=== PATIENT | male | born 1930 | race Caucasian/White ===

== ENCOUNTER → 2016-10-26 | Day surgery (SDC) | payer OTHER ==
[2016-10-13 14:10] VITALS: Ht 181.6 cm; Wt 58.8 kg
[~2016-10-26] VITALS: Ht 181.6 cm; Wt 58.8 kg
[~2016-10-26] MED LIST: 500ML BSS 0.3ML EPI 1:1000PF IRRIG ONE; ACETAMINOPHEN 325 MG TAB PO PRN; AMVISC PLUS 0.8ML SYRINGE INT OCU ONE; ASPEC81 PO; ASPI81TA28 PO; ATROPINE SULFATE 0.1 MG/ML 5ML SYR IV PRN; AcetaZOLAMIDE 250 MG TAB PO SCH; BETAXOLOL HCL 0.25% OP SUSP PER DROP CHARGE OPR SCH; BRIMONIDINE TART 0.2% OP SOLN PER DROP CHARGE ONE; BSS FLUSH ONE; CARB25TA12 PO; CHOL2000 PO; CHOL20005 PO; CLOP1TAB5 PO; CMD2 PO; CYAN3INJ SQ; CYNI1000 SQ; DMX250; ENDOCOAT 0.85ML SYRINGE INT OCU ONE; EpINEphrine INJ 1MG/ML AMP 1 MG/ML AMP ONE; LACTATED RINGER'S 1000ML 500 ML IV SCH; LIDOCAINE 4% OP SOLN DROP CHARGE ONE; LIDOCAINE 4% OP SOLN DROP CHARGE OPR SCH; LIDOCAINE HCL 1% MPF 2 ML VIAL ONE; METO25TA3 PO; MIDAZOLAM HCL 1 MG/ML 2ML VIAL ONE; MIX: 4ML BSS 1ML EPI 1:1000 PF INSTIL ONE; MOXIFLOXACIN OPH SOLN PER DROP CHARGE ONE; OCUCOAT 1 ML SOLN IO ONE; OFLO0.3S OP; ONDA4TAB10 SL; PANT40TA PO; PARO20TA3 PO; PLV75 PO; POVIDONE-IODINE OP SOLN 30 ML BTL ONE; PRED1SUS3 OPL; PRED1SUS3 OPR; PROPARACAINE 0.5% OP SOLN PER DROP CHARGE OPR SCH; TOBRAMYCIN/DEXAMETHASONE OPH OINT PER APPLN CHARGE ONE; TPRSR/25 PO; WARF1TAB6 PO; WARF2TAB8 PO
[2016-10-26] MEDS: PHENYLEPHRINE HCL 2.5% OP SOLN PER DROP CHARGE OPR SCH ×2 (08:22→08:27)
[2016-10-26] MEDS: TROPICAMIDE 1% OP SOLN PER DROP CHARGE OPR SCH ×2 (08:23→08:28)
[2016-10-26] MEDS: CYCLOPENTOLATE HCL 1% OP SOLN PER DROP CHARGE OPR SCH ×2 (08:24→08:29)
[2016-10-26] MEDS: MOXIFLOXACIN OPH SOLN PER DROP CHARGE OPR SCH ×2 (08:25→08:35)
--- NOTE | 2016-10-26 08:50 | History & Physical Bridge - [place] ---
H&P Re-Evaluation Bridge Note: I have examined the patient, reviewed the History & Physical and in the interval since the performance of the History & Physical I have noted the following changes of clinical significance: No changes noted
--- NOTE | 2016-10-26 09:23 | Discharge Instructions-SurgCtr ---
Discharge Instructions Visit Reason for Visit: Cataract Right Eye Discharge Discharge Diagnosis / Problem: lens implant right eye Discharge Goals Goal(s): Improve function Activity Recommendations Activity Limitations: resume your previous activity Lifting Limitations: no more than 10 pounds Exercise/Sports Limitations: gradually increase as tolerated May Resume Sexual Activity: when tolerated Shower/Bathe: tomorrow Driving or Machine Use: resume 1 day after discharge Anesthesia . Post Anesthesia Instructions: If you have had General Anesthesia or IV Sedation: * Do not drive today. * Resume driving when surgeon permits. * Do not make important decisions or sign legal documents today. * Call surgeon for: 1. Temperature elevations greater than 101 degrees F. 2. Uncontrollable pain. 3. Excessive bleeding. 4. Persistent nausea and vomiting. 5. Medication intolerance (nausea, vomiting or rash). * For nausea and vomiting use only clear liquids such as: tea, soda, bouillon until nausea subsides, then gradually increase diet as tolerated. * If you have any concerns or questions, call your surgeon's office. If physician is unavailable and it is an emergency, call 911 or go to the nearest emergency room. . Instructions / Follow-Up Instructions / Follow-Up ACTIVITY RECOMMENDATIONS: * Light activities. * Mild irritation and blurred vision are common for the first few days. * You may walk outside, read, watch television. * Redness around the white part of the eye is common. MEDICATIONS: Resume previous medications unless instructed otherwise by your surgeon. * Take white Diamox (Acetazolamide) tablet at 1 pm today. Start all eye drops at 1 pm today: * Eye drops (today and tomorrow): Prednisone - one drop in operative eye every 3 hours while awake Ofloxacin - one drop in operative eye every 3 hours while awake SPECIAL CARE INSTRUCTIONS: * Tape plastic shield over eye to sleep at night. Call your doctor at with any concerns or problems. FOLLOW UP VISIT: Follow-up with Dr Elaine at [place] office as scheduled. Diet Recommendations Home Diet: no limitations Procedures Procedures Performed: cataract extraction with lens implant Pending Studies Studies pending at discharge: no Medical Emergencies . Who to Call and When: Medical Emergencies: If at any time you feel your situation is an emergency, please call 911 immediately. . Non-Emergent Contact Non-Emergency issues call your: Rn Patient Services Call Non-Emergent contact if: your pain is not controlled [phone] . . "Provider Documentation" section prepared by Jayce Elaine.
--- NOTE | 2016-10-26 09:24 | [facility] Operative Report ---
Operative Report 1. PREOPERATIVE DIAGNOSIS: Senile nuclear cataract, right eye. 2. POSTOPERATIVE DIAGNOSIS: Senile nuclear cataract, right eye. 3. PROCEDURE: Phacoemulsification of right cataract with posterior chamber lens implant, type Bausch [employer] Lomb, model MX60, power +22 diopters. ANESTHESIA: Local standby. SURGEON: Dr. Elaine. COMPLICATIONS: None. OPERATING TIME: 10 minutes. 4. OPERATION AND FINDINGS: DESCRIPTION OF PROCEDURE: The right pupil was dilated. The anesthetic was administered using a topical technique. The right eye was prepped and draped. A speculum was placed. A clear corneal incision was formed. The chamber was filled with Amvisc Plus and Endocoat. Epinephrine solution was used. A paracentesis was placed. A capsulorrhexis was performed. The nucleus was hydrodissected. The lens was removed with phacoemulsification. Time was 4.86 seconds. The aspiration unit was used to remove the cortex. The capsule was filled with Amvisc Plus. The lens implant was folded and placed into the capsule. The incision was hydrated. The Amvisc was aspirated. The wound was secure. The chamber was deep. The pupil was round. TobraDex ointment and Vigamox solution were placed. The speculum was removed. The patient was returned to the Recovery Room in stable condition. I attest to the content of the Intraoperative Record and any orders documented therein. Any exceptions are noted below. The scribe's documentation has been prepared in my presence, under my direction and personally reviewed by me in its entirety. I confirm that the note above accurately reflects all work, treatment, procedures, and medical decision making performed by me. I personally scribed for Jayce Elaine M.D. (SETH) on 10/26/16 at 09:24. Electronically submitted by Mirela Billy ([email or web address]).
--- NOTE | 2016-10-26 09:29 | Anesthesia Progress Nt - [facility] ---
Anesthesia Post Op Note Date & Time Oct 26, 2016 at 09:29 Vital Signs Pain Intensity: 0 Vital Signs Past 12 Hours Date Time Temp Pulse Resp B/P Pulse Ox O2 Delivery O2 Flow Rate FiO2 10/26/16 08:12 36.2 72 16 101/76 98 Room Air Notes Mental Status: alert / awake / arousable, participated in evaluation Pt Amnestic to Procedure: Yes Nausea / Vomiting: adequately controlled Pain: adequately controlled Airway Patency, RR, SpO2: stable & adequate BP & HR: stable & adequate Hydration State: stable & adequate Anesthetic Complications: no major complications apparent
[2016-10-26 09:31] VITALS: TEMP 36.3
[2016-10-26 09:52] VITALS: BP 126/78; PULSE 56; O2SAT 98
== END | disposition home or self-care (01) ==
LOC: X.SURG 08:01
PROVIDERS: ATTEND Specialist
DX: H25.11 Age-related nuclear cataract, right eye (principal)

== ENCOUNTER → 2016-11-16 | Day surgery (SDC) | payer OTHER ==
[2016-11-07 08:30] VITALS: Ht 181.6 cm; Wt 58.6 kg
[~2016-11-16] VITALS: Ht 181.6 cm; Wt 58.6 kg
[~2016-11-16] MED LIST changes: +BETAXOLOL HCL 0.25% OP SUSP PER DROP CHARGE OPL SCH; -BETAXOLOL HCL 0.25% OP SUSP PER DROP CHARGE OPR SCH; +EpHEDrine SULFATE INJ 50 MG/ML AMP IV PRN; +LIDOCAINE 4% OP SOLN DROP CHARGE OPL SCH; -LIDOCAINE 4% OP SOLN DROP CHARGE OPR SCH; +PROPARACAINE 0.5% OP SOLN PER DROP CHARGE OPL SCH; -PROPARACAINE 0.5% OP SOLN PER DROP CHARGE OPR SCH; +PROPOFOL IV EMULSION 10 MG/ML 20 ML VIAL IV ONE
[2016-11-16] MEDS: PHENYLEPHRINE HCL 2.5% OP SOLN PER DROP CHARGE OPL SCH ×2 (10:20→10:25)
[2016-11-16] MEDS: TROPICAMIDE 1% OP SOLN PER DROP CHARGE OPL SCH ×2 (10:21→10:26)
[2016-11-16] MEDS: CYCLOPENTOLATE HCL 1% OP SOLN PER DROP CHARGE OPL SCH ×2 (10:22→10:27)
[2016-11-16] MEDS: MOXIFLOXACIN OPH SOLN PER DROP CHARGE OPL SCH ×2 (10:23→10:33)
--- NOTE | 2016-11-16 11:11 | Anesthesia Progress Nt - [facility] ---
Anesthesia Post Op Note Date & Time Nov 16, 2016 at 11:11 Vital Signs Pain Intensity: 3 Vital Signs Past 12 Hours Date Time Temp Pulse Resp B/P Pulse Ox O2 Delivery O2 Flow Rate FiO2 11/16/16 10:08 36.5 54 20 106/64 99 Room Air Notes Mental Status: alert / awake / arousable, participated in evaluation Pt Amnestic to Procedure: Yes Nausea / Vomiting: adequately controlled Pain: adequately controlled Airway Patency, RR, SpO2: stable & adequate BP & HR: stable & adequate Hydration State: stable & adequate Anesthetic Complications: no major complications apparent
--- NOTE | 2016-11-16 11:13 | Discharge Instructions-SurgCtr ---
Discharge Instructions Visit Reason for Visit: Cataract Left Eye Discharge Discharge Diagnosis / Problem: lens implant left eye Discharge Goals Goal(s): Improve function Activity Recommendations Activity Limitations: resume your previous activity Lifting Limitations: no more than 10 pounds Exercise/Sports Limitations: gradually increase as tolerated May Resume Sexual Activity: when tolerated Shower/Bathe: tomorrow Driving or Machine Use: resume 1 day after discharge Anesthesia . Post Anesthesia Instructions: If you have had General Anesthesia or IV Sedation: * Do not drive today. * Resume driving when surgeon permits. * Do not make important decisions or sign legal documents today. * Call surgeon for: 1. Temperature elevations greater than 101 degrees F. 2. Uncontrollable pain. 3. Excessive bleeding. 4. Persistent nausea and vomiting. 5. Medication intolerance (nausea, vomiting or rash). * For nausea and vomiting use only clear liquids such as: tea, soda, bouillon until nausea subsides, then gradually increase diet as tolerated. * If you have any concerns or questions, call your surgeon's office. If physician is unavailable and it is an emergency, call 911 or go to the nearest emergency room. . Instructions / Follow-Up Instructions / Follow-Up ACTIVITY RECOMMENDATIONS: * Light activities. * Mild irritation and blurred vision are common for the first few days. * You may walk outside, read, watch television. * Redness around the white part of the eye is common. MEDICATIONS: Resume previous medications unless instructed otherwise by your surgeon. * Take white Diamox (Acetazolamide) tablet at 2 pm today. Start all eye drops at 2 pm today: * Eye drops (today and tomorrow): Prednisone - one drop in operative eye every 3 hours while awake Ofloxacin - one drop in operative eye every 3 hours while awake SPECIAL CARE INSTRUCTIONS: * Tape plastic shield over eye to sleep at night. Call your doctor at with any concerns or problems. FOLLOW UP VISIT: Follow-up with Dr Elaine at [place] office as scheduled. Diet Recommendations Home Diet: no limitations Procedures Procedures Performed: cataract extraction with lens implant Pending Studies Studies pending at discharge: no Medical Emergencies . Who to Call and When: Medical Emergencies: If at any time you feel your situation is an emergency, please call 911 immediately. . Non-Emergent Contact Non-Emergency issues call your: [employer] Worker Call Non-Emergent contact if: your pain is not controlled [phone] . . "Provider Documentation" section prepared by Jayce Elaine.
--- NOTE | 2016-11-16 11:15 | [facility] Operative Report ---
Operative Report Date of Service Nov 16, 2016. Operative Report 1. PREOPERATIVE DIAGNOSIS: Senile nuclear cataract, left eye. 2. POSTOPERATIVE DIAGNOSIS: Senile nuclear cataract, left eye. 3. PROCEDURE: Phacoemulsification of left cataract with posterior chamber lens implant, type Bausch [employer] Lomb, model MX60, power +22.5 diopters. ANESTHESIA: Local standby. SURGEON: Dr. Elaine. COMPLICATIONS: None. OPERATING TIME: 10 minutes. 4. OPERATION AND FINDINGS: DESCRIPTION OF PROCEDURE: The left pupil was dilated. The anesthetic was administered using a topical technique. The left eye was prepped and draped. A speculum was placed. A clear corneal incision was formed. The chamber was filled with Amvisc Plus and Endocoat. Epinephrine solution was used. A paracentesis was placed. A capsulorrhexis was performed. The nucleus was hydrodissected. The lens was removed with phacoemulsification. Time was 6.79 seconds. The aspiration unit was used to remove the cortex. The capsule was filled with Amvisc Plus. The lens implant was folded and placed into the capsule. The incision was hydrated. The Amvisc was aspirated. The wound was secure. The chamber was deep. The pupil was round. TobraDex ointment and Vigamox solution were placed. The speculum was removed. The patient was returned to the Recovery Room in stable condition. I attest to the content of the Intraoperative Record and any orders documented therein. Any exceptions are noted below. The scribe's documentation has been prepared in my presence, under my direction and personally reviewed by me in its entirety. I confirm that the note above accurately reflects all work, treatment, procedures, and medical decision making performed by me. I personally scribed for Jayce Elaine M.D. (SETH) on 11/16/16 at 11:15. Electronically submitted by Mirela Billy ([email or web address]).
[2016-11-16 11:17] VITALS: TEMP 36.7
[2016-11-16 11:40] VITALS: BP 139/68; PULSE 61; O2SAT 98
== END | disposition home or self-care (01) ==
LOC: X.SURG 09:50
PROVIDERS: ATTEND Specialist
DX: H25.12 Age-related nuclear cataract, left eye (principal); Z96.1 Presence of intraocular lens

== ENCOUNTER 2017-01-02 12:38 | Inpatient (IN) | payer OTHER ==
[~2017-01-02] VITALS: Ht 180.3 cm; Wt 57.0 kg
[~2017-01-02 12:38] MED LIST changes: -500ML BSS 0.3ML EPI 1:1000PF IRRIG ONE; -ACETAMINOPHEN 325 MG TAB PO PRN; -AMVISC PLUS 0.8ML SYRINGE INT OCU ONE; -ASPEC81 PO; -ASPI81TA28 PO; -ATROPINE SULFATE 0.1 MG/ML 5ML SYR IV PRN; -AcetaZOLAMIDE 250 MG TAB PO SCH; -BETAXOLOL HCL 0.25% OP SUSP PER DROP CHARGE OPL SCH; -BRIMONIDINE TART 0.2% OP SOLN PER DROP CHARGE ONE; -BSS FLUSH ONE; -CHOL20005 PO; -CLOP1TAB5 PO; -CYNI1000 SQ; -ENDOCOAT 0.85ML SYRINGE INT OCU ONE; -EpHEDrine SULFATE INJ 50 MG/ML AMP IV PRN; -EpINEphrine INJ 1MG/ML AMP 1 MG/ML AMP ONE; -LACTATED RINGER'S 1000ML 500 ML IV SCH; -LIDOCAINE 4% OP SOLN DROP CHARGE ONE; -LIDOCAINE 4% OP SOLN DROP CHARGE OPL SCH; -LIDOCAINE HCL 1% MPF 2 ML VIAL ONE; -MIDAZOLAM HCL 1 MG/ML 2ML VIAL ONE; -MIX: 4ML BSS 1ML EPI 1:1000 PF INSTIL ONE; -MOXIFLOXACIN OPH SOLN PER DROP CHARGE ONE; -OCUCOAT 1 ML SOLN IO ONE; -ONDA4TAB10 SL; -PANT40TA PO; -PARO20TA3 PO; -PLV75 PO; -POVIDONE-IODINE OP SOLN 30 ML BTL ONE; -PRED1SUS3 OPR; -PROPARACAINE 0.5% OP SOLN PER DROP CHARGE OPL SCH; -PROPOFOL IV EMULSION 10 MG/ML 20 ML VIAL IV ONE; -TOBRAMYCIN/DEXAMETHASONE OPH OINT PER APPLN CHARGE ONE; -TPRSR/25 PO; -WARF1TAB6 PO; -WARF2TAB8 PO
[2017-01-02] MEDS ORDERED: NITROGLYCERIN OINT 2% 1GM PACKET EXT STA (12:48)
[2017-01-02] MEDS ORDERED: SODIUM CHLORIDE 0.9% 1000ML 250 ML IV STA (12:48)
[2017-01-02] MEDS ORDERED: NiCARDipine HCL INJ 2.5 MG/ML 10 ML AMP ONE (12:51)
[2017-01-02] MEDS ORDERED: FENTANYL CITRATE INJ 50 MCG/1 ML 2 ML VIAL ONE (12:52)
[2017-01-02] MEDS ORDERED: HEPARIN SOD (PORCINE) 1000 UNIT/ML 10 ML VIAL ONE (12:52)
[2017-01-02] MEDS ORDERED: MIDAZOLAM HCL 1 MG/ML 2ML VIAL ONE (12:53)
[2017-01-02] MEDS ORDERED: NITROGLYCERIN/D5W 100MCG/ML 20ML SYR ONE (12:54)
[2017-01-02] MEDS ORDERED: NITROGLYCERIN OINT 2% 1GM PACKET ONE (12:55)
[2017-01-02 13:00] LABS: HEMATOCRIT 34.5 % (42-52); MEAN CELL VOLUME 90.3 fL (80-100); MEAN CORPUSCULAR HEMOGLOBIN 30.4 pg (25-34); MEAN CORPUSCULAR HGB CONC 33.6 g/dl (32-36); MEAN PLATELET VOLUME 9.4 fL (7.4-10.4); PLATELET COUNT 207 K/uL (130-400); RED BLOOD COUNT 3.82 M/uL (4.7-6.1); WHITE BLOOD COUNT 12.17 K/uL (4.8-10.8)
[2017-01-02 13:04] LABS: ISTAT CREATININE 2.6 mg/dl (0.6-1.3); ISTAT HEMOGLOBIN 11.6 g/dl (14.0-18.0); ISTAT IONIZED CALCIUM 1.12 mmol/l (1.12-1.32)
--- NOTE | 2017-01-02 13:06 | EMERGENCY ROOM VISIT NOTE ---
History Report prepared by Dominic: Shayna Ty Under the Supervision of: Dr. Beltran Botello M.D. First contact with patient: 12:33 Stated Complaint: CARDIAC History of Present Illness The patient is a 86 year old male who presents to the Emergency Room with complaints of an episode of resolved chest pain that occurred about an hour ago. Per EMS, the patient was on his way to the cafeteria to eat at his half-way and developed epigastric pain. He did not look well to staff and had a syncopal episode. Paramedics were called at that time. Upon their arrival, he complained of 10/10 chest pain. He then complained of abdominal pain. En route, he was nauseated with dry heaves but had no productive emesis. He was given 4 mg Zofran and 4 baby aspirin. EKGs en route were suggestive of an inferior myocardial infarction. Upon arrival to the ED, the patient was pain free. Denies shortness of breath or other complaints. He has never had a heart attack. He does not have a history of lung disease or diabetes. He is not on any medication for high blood pressure. The patient is on Coumadin due to a history of a-fib. His [id number] states that he recently had his INR checked. Source of History: patient, family, EMS Onset: 1 hour ago Position: chest Symptom Intensity: 10/10 Timing: resolved Associated Symptoms: + abdominal pain, + nausea, No SOB, No vomiting Review of Systems See HPI for pertinent positives & negatives. A total of 10 systems reviewed and were otherwise negative. Past Medical & Surgical Medical Problems: (1) Crohns disease (2) Heart disease (3) Hypertension (4) Kidney stones (5) Left ureteral calculus (6) Myocardial infarction acute (7) Prostate cancer Family History Cancer Heart disease Hypertension Kidney stones Social History Smoking Status: Former Smoker Alcohol Use: none Marital Status: Housing Status: lives alone Occupation Status: retired Current/Historical Medications Scheduled Carbidopa/Levodopa (Sinemet 25MG/100MG), 1 TAB PO QID Cholecalciferol (Vitamin D3), 1 TAB PO DAILY Cyanocobalamin (Cyanocobalamin), 1 ML SQ MONTHLY Metoprolol Succinate (Metoprolol Succinate ER), 0.5 TAB PO DAILY Paroxetine HCl (Paroxetine), 1 TAB PO DAILY Warfarin Sod (Jantoven), 2 MG PO 3XWK Warfarin Sod (Jantoven), 1 MG PO 4XWK Allergies Coded Allergies: Amoxicillin (Verified Allergy, Unknown, ., 01/02/17) Propoxyphene (Verified Allergy, Unknown, DARVON, 01/02/17) Physical Exam Vital Signs Date Time Temp Pulse Resp B/P Pulse Ox O2 Delivery O2 Flow Rate FiO2 01/02/17 15:15 118/59 01/02/17 15:14 58 13 100 Nasal Cannula 2.0 01/02/17 15:09 62 16 100 Nasal Cannula 2.0 01/02/17 15:04 59 16 100 Nasal Cannula 2.0 01/02/17 15:00 117/64 01/02/17 14:59 63 15 100 Nasal Cannula 2.0 01/02/17 14:54 60 14 100 Nasal Cannula 2.0 01/02/17 14:49 58 13 100 Nasal Cannula 2.0 01/02/17 14:45 116/59 01/02/17 14:44 61 13 100 Nasal Cannula 2.0 01/02/17 14:39 57 16 100 Nasal Cannula 2.0 01/02/17 14:38 58 13 100 Nasal Cannula 2.0 01/02/17 14:33 59 13 100 Nasal Cannula 2.0 01/02/17 14:30 107/63 01/02/17 14:28 61 14 100 Nasal Cannula 2.0 01/02/17 14:23 58 12 100 Nasal Cannula 2.0 01/02/17 14:18 57 14 100 Nasal Cannula 2.0 01/02/17 14:15 110/59 01/02/17 14:13 58 13 100 Nasal Cannula 2.0 01/02/17 14:08 57 16 100 Nasal Cannula 2.0 01/02/17 14:03 57 12 100 Nasal Cannula 2.0 01/02/17 14:00 112/55 01/02/17 13:58 56 16 100 Nasal Cannula 2.0 01/02/17 13:53 59 22 100 Nasal Cannula 2.0 01/02/17 13:48 56 18 123/60 100 Nasal Cannula 2.0 01/02/17 13:48 123/60 01/02/17 13:43 56 17 100 Nasal Cannula 2.0 01/02/17 13:38 55 15 100 Nasal Cannula 2.0 01/02/17 13:33 63 17 100 Nasal Cannula 2.0 01/02/17 13:28 64 23 100 Nasal Cannula 2.0 01/02/17 13:23 54 15 100 Nasal Cannula 2.0 01/02/17 13:18 59 17 100 Nasal Cannula 2.0 01/02/17 13:13 57 17 100 Nasal Cannula 2.0 01/02/17 13:08 55 18 100 Nasal Cannula 2.0 01/02/17 13:03 58 22 100 Nasal Cannula 2.0 01/02/17 12:58 53 21 100 Nasal Cannula 2.0 01/02/17 12:55 121/55 01/02/17 12:53 54 15 100 Nasal Cannula 2.0 01/02/17 12:50 53 01/02/17 12:48 53 22 129/58 100 Nasal Cannula 2.0 01/02/17 12:43 54 21 99 Nasal Cannula 2.0 01/02/17 12:42 100 Nasal Cannula 2.0 01/02/17 12:40 100 Nasal Cannula 2.0 01/02/17 12:40 36.8 58 20 142/66 97 Nasal Cannula 2.0 01/02/17 12:40 142/66 Physical Exam GENERAL: Patient is in no acute distress. HEENT: No acute trauma, normocephalic atraumatic, mucous membranes moist, no nasal congestion, no scleral icterus. NECK: No stridor, no adenopathy, no meningismus, trachea is midline. LUNGS: Clear to auscultation bilaterally, no wheeze, no rhonchi, breath sounds equal. HEART: Bradycardic with a regular rhythm, no murmurs. ABDOMEN: Soft, nontender, bowel sounds positive, no hernias, no peritonitis. EXTREMITIES: No cyanosis or edema, full range of motion of all the joints without pain or difficulty, no signs for acute trauma. NEUROLOGIC: Oriented x 3, no acute motor or sensory deficits, no focal weakness. SKIN: No rash, no jaundice, no diaphoresis. Medical Decision & Procedures ER Provider Diagnostic Interpretation: Radiology results and stated below per my review and radiologist interpretation: CHEST ONE VIEW PORTABLE CLINICAL HISTORY: Chest pain. Heart alert. COMPARISON STUDY: Chest radiograph July 25, 2016. FINDINGS: Lung volumes are normal. Post surgical findings within the right hemithorax are unchanged. Cardiac size is normal. Mediastinal contours are normal. There is no evidence of pulmonary edema. IMPRESSION: No acute cardiopulmonary findings. Electronically signed by: Adolfo Simental M.D. 01/02/2017 1:31 PM Dictated Date/Time: 01/02/2017 1:31 PM Laboratory Results 01/02/17 12:45 01/02/17 12:45 Test 01/02/17 12:45 01/02/17 12:47 01/02/17 12:50 Red Blood Count 3.82 M/uL (4.7-6.1) Mean Corpuscular Volume 90.3 fL (80-100) Mean Corpuscular Hemoglobin 30.4 pg (25-34) Mean Corpuscular Hemoglobin Concent 33.6 g/dl (32-36) RDW Standard Deviation 45.7 fL (36.4-46.3) RDW Coefficient of Variation 13.8 % (11.5-14.5) Mean Platelet Volume 9.4 fL (7.4-10.4) Prothrombin Time 62.3 SECONDS (9.0-12.0) Prothromb Time International Ratio 5.4 (0.9-1.1) Activated Partial Thromboplast Time 60.6 SECONDS (21.0-31.0) Partial Thromboplastin Ratio 2.3 Est Creatinine Clear Calc Drug Dose 14.7 ml/min Estimated GFR () 21.6 Estimated GFR (Non- 18.6 BUN/Creatinine Ratio 12.1 (10-20) Calcium Level 8.3 mg/dl (8.5-10.1) Total Bilirubin 0.6 mg/dl (0.2-1) Aspartate Amino Transf (AST/SGOT) 16 U/L (15-37) Alanine Aminotransferase (ALT/SGPT) 12 U/L (12-78) Alkaline Phosphatase 72 U/L (45-117) Total Creatine Kinase 97 U/L (39-308) Creatine Kinase MB 1.7 ng/ml (0.5-3.6) Creatine Kinase MB Ratio 1.8 (0-3.0) Total Protein 6.6 gm/dl (6.4-8.2) Albumin 3.1 gm/dl (3.4-5.0) Globulin 3.5 gm/dl (2.5-4.0) Albumin/Globulin Ratio 0.9 (0.9-2) Lipase 152 U/L (73-393) Bedside Prothrombin Time INR 6.1 (0.9-1.1) Bedside Troponin I 0.000 ng/ml (0-0.045) Bedside Hemoglobin 11.6 g/dl (14.0-18.0) Bedside Hematocrit 34 % (42-52) Bedside Sodium 139 mEq/L (135-144) Bedside Potassium 4.3 mEq/L (3.3-5.0) Bedside Chloride 105 mEq/L (101-112) Bedside Total CO2 21 mEq/l (24-31) Anion Gap 19.0 mmol/L (16-25) Bedside Blood Urea Nitrogen 35 mg/dl (7-18) Bedside Creatinine 2.6 mg/dl (0.6-1.3) Bedside Glucose (other) 127 mg/dl (70-99) Bedside Ionized Calcium (Tim) 1.12 mmol/l (1.12-1.32) Laboratory results reviewed by me. Medications Administered Medications (Trade) Dose Ordered Sig/Jennifer Route Start Time Stop Time Status Last Admin Dose Admin Sodium Chloride (Nss 1000ml) 250 ml @ 999 mls/hr Q16M STAT IV 01/02/17 12:48 01/02/17 13:03 DC 01/02/17 12:48 999 MLS/HR Nitroglycerin 0.5 inch 0.5 inch NOW STAT EXT 01/02/17 12:48 01/02/17 12:52 DC 01/02/17 12:48 0.5 INCH Sodium Chloride (Nss 1000ml) 1,000 ml @ 125 mls/hr Q8H STAT IV 01/02/17 13:07 01/02/17 21:06 01/02/17 13:07 125 MLS/HR ECG Indication: chest pain Rate (beats per minute): 53 Rhythm: sinus bradycardia Findings: other (some T wave inversion inferiorly, some peaked T waves, no current evidence for acute GA) Change: EKG per paramedics pre-hospital showed evidence for inferior GA with reciprocal changes. ED Course 1238: The patient was evaluated in room B1. A complete history and physical exam was performed. Dr. Estrada - Interventional Cardiology was at bedside. 1248: Ordered Nitroglycerin 0.5 inch EXT, NSS 250 ml @ 999 mls/hr IV. 1300: I discussed the case with Dr. Kelley, [facility]. He will come in to see the patient. 1307: I discussed the case with Dr Mack VERDIN Hospitalist. The patient will be evaluated for further management. Ordered NSS 1000 ml @ 125 mls/hr IV. 1311: Upon reexamination the patient is resting comfortably. I discussed results and treatment plan with the patient and his [id number]. They verbalized agreement and understanding. The patient will be evaluated for further management. Medical Decision Differential includes but is not limited to GA, angina, aortic dissection, PE, pneumonia, pneumothorax, pancreatitis, bowel rupture. There is a mild leukocytosis which could be consistent with infection or just the stress of his presentation. No concerning anemia. Renal panel testing shows some acute renal failure/dehydration, no significant electrolyte abnormalities requiring correction. There was no hepatitis or pancreatitis. INR was quite elevated at 5-6. He is over anticoagulated. EKG performed here showed a sinus bradycardia without any evidence for acute GA. There were some peaked T waves noted. EKG by the EMS crew demonstrated findings consistent with an acute inferior GA. Chest film did not show pneumonia, mediastinal widening or pneumothorax. When the patient arrived here, he suddenly was pain-free. As noted above, EKG here does not show evidence for an acute GA. EKG earlier was concerning for an acute cardiac injury. The patient received a small amount of IV saline. He received Nitropaste. He had received oral aspirin and IV Zofran prior to arrival at our ER. The patient remained pain-free. He was initially a heart alert here at the emergency room. The cath team arrived but as the patient is pain-free, he will not be going directly to the cardiac catheterization laboratory. I spoke to the family, I talked with case management. I spoke with the patient' s stand in who saw the patient in the emergency room. I spoke with the on- call hospitalist. Admission/observation is warranted. Consults Time Called: 1257 Consulting Physician: [facility] Returned Call: 1300 I discussed the case with him. He will come in to see the patient. Additional Consults: Time Called: 1304 Consulted Physician: Dr Mack VERDIN Hospitalist Returned Call: 1307 Additional Comments: I discussed the case with her. The patient will be evaluated for further management. Impression Primary Impression: Acute coronary syndrome Critical Care I have personally spent greater than 35 minutes of critical care time in the direct management of this patient. This includes bedside care, interpretation of diagnostic studies, and testing, discussion with consultants, patient, and family members, and other required patient management activities. This 35 minutes is in excess of all separately billable procedures. Scribe Attestation The scribe's documentation has been prepared under my direction and personally reviewed by me in its entirety. I confirm that the note above accurately reflects all work, treatment, procedures, and medical decision making performed by me. Departure Information Dispostion Being Evaluated By Hospitalist Referrals BRIANNE MARTINEZ (PCP)
[2017-01-02] MEDS ORDERED: SODIUM CHLORIDE 0.9% 1000ML 1,000 ML IV STA (13:07)
[2017-01-02 13:21] LABS: PARTIAL THROMBOPLASTIN RATIO 2.3; PROTHROMBIN TIME (PATIENT) 62.3 SECONDS (9.0-12.0)
[2017-01-02 13:23] LABS: BUN/CREATININE RATIO 12.1 (10-20); CALCIUM 8.3 mg/dl (8.5-10.1); CREATININE 2.9 mg/dl (0.60-1.40); POTASSIUM 4.2 mmol/L (3.5-5.1)
[2017-01-02 13:28] LABS: ALB/GLOB RATIO 0.9 (0.9-2); CKMB/CK RATIO 1.8 (0-3.0); INR 5.4 (0.9-1.1)
[2017-01-02] MEDS ORDERED: CHOL20005 PO (13:30)
[2017-01-02] MEDS ORDERED: WARF1TAB6 PO (13:30)
[2017-01-02] MEDS ORDERED: TPRSR/25 PO (13:30)
[2017-01-02] MEDS ORDERED: CYNI1000 SQ (13:30)
[2017-01-02] MEDS ORDERED: WARF2TAB8 PO (13:30)
[2017-01-02] MEDS ORDERED: PARO20TA3 PO (13:30)
[2017-01-02] MEDS ORDERED: CARB25TA12 PO (13:30)
--- NOTE | 2017-01-02 13:33 | DIAGNOSTIC IMAGING REPORT ---
CHEST ONE VIEW PORTABLE CLINICAL HISTORY: Chest pain. Heart alert. COMPARISON STUDY: Chest radiograph July 25, 2016. FINDINGS: Lung volumes are normal. Post surgical findings within the right hemithorax are unchanged. Cardiac size is normal. Mediastinal contours are normal. There is no evidence of pulmonary edema. IMPRESSION: No acute cardiopulmonary findings. Electronically signed by: Adolfo Simental M.D. 01/02/2017 1:31 PM Dictated Date/Time: 01/02/2017 1:31 PM
[2017-01-02] MEDS ORDERED: SODIUM CHLORIDE 0.9% 1000ML 1,000 ML IV SCH (13:44)
[2017-01-02] MEDS ORDERED: POLYETHYLENE (MIRALAX) 17 GM PACK PO PRN (13:45)
[2017-01-02] MEDS ORDERED: ACETAMINOPHEN 325 MG TAB PO PRN (13:45)
[2017-01-02] MEDS ORDERED: MAGNESIUM HYDROXIDE SUSP 30 ML UDC PO PRN (13:45)
[2017-01-02] MEDS ORDERED: MoRPHine SULFATE 2 MG/ML CARP IV PRN (13:45)
[2017-01-02] MEDS ORDERED: ALUMINUM/MAGNESIUM/SIMETH (MAALOX MAX) 30 ML UDC PO PRN (13:45)
[2017-01-02] MEDS ORDERED: NITROGLYCERIN 0.4 MG SL PER TAB CHARGE SL PRN (13:45)
[2017-01-02] MEDS ORDERED: ONDANSETRON INJ 2 MG/ML 2 ML VIAL IV PRN (13:45)
--- NOTE | 2017-01-02 14:04 | History and Physical ---
History & Physical Date & Time of Service: Jan 02, 2017 at 14:01 Chief Complaint: Cardiac Primary Care Physician: [facility] History of Present Illness Source: patient, family Mr. Chiang is an 86 y/o male with PMHx of Crohn's Disease, HTN, Paroxysmal Atrial Fibrillation, Parkinson's Disease, and Prostate CA who presents to the ED for resolved epigastric pain that started approximately at 1100. Patient is a resident of [facility] and was on his way to the cafeteria to eat when he developed epigastric pain. When he went to sit down at the table he stated that the room felt like it was spinning. He denies passing out or falling. He describes the epigastric pain as a 10/10 and sharp. Associated nausea and dry heaving. He states that the nausea actually started the day prior. EMS arrived , there are EKG revealed ST elevations in II, III, and aVF with reciprocal changes. EMS provided ASA 324 mg and nitroglycerin. Patient reports pain resolved after these interventions. Upon arrival to the ED, a heart alert was called. EKG upon arrival showed sinus bradycardia with some remaining T-wave inversions inferiorly and no further evidence of elevations. In the ED, heart alert was called. Patient was evaluated by Dr. Estrada. Patient is afebrile and normotensive. Mild leukocytosis of 12.17. INR 6.1. Creatinine 2.6 with baseline 1.5-1.9. Patient will be admitted to telemetry for acute [place] and further evaluation and care. Past Medical/Surgical History Medical Problems: (1) Crohns disease Status: Chronic (2) Heart disease Status: Chronic (3) Hypertension Status: Chronic (4) Kidney stones Status: Resolved (5) Prostate cancer Status: Resolved Family History Cancer Heart disease Hypertension Kidney stones Social History Smoking Status: Former Smoker Marital Status: Occupational Status: retired Immunizations History of Influenza Vaccine: Yes History of Tetanus Vaccine?: Yes History of Pneumococcal: Yes History of Hepatitis B Vaccine: No Multi-Drug Resistant Organisms History of MDRO: No Allergies Coded Allergies: Amoxicillin (Verified Allergy, Unknown, ., 01/02/17) Propoxyphene (Verified Allergy, Unknown, DARVON, 01/02/17) Home Medications Scheduled Carbidopa/Levodopa (Sinemet 25MG/100MG), 1 TAB PO QID Cholecalciferol (Vitamin D3), 1 TAB PO DAILY Cyanocobalamin (Cyanocobalamin), 1 ML SQ MONTHLY Metoprolol Succinate (Metoprolol Succinate ER), 0.5 TAB PO DAILY Paroxetine HCl (Paroxetine), 1 TAB PO DAILY Warfarin Sod (Jantoven), 2 MG PO 3XWK Warfarin Sod (Jantoven), 1 MG PO 4XWK Review of Systems REVIEW OF SYSTEMS: General/Constitutional: Denies fever/chills, fatigue, weakness, weight gain/loss ENT: Denies visual changes, nasal drainage, hearing loss, sore throat, trouble swallowing Cardiovascular: Denies chest pain, palpitations, edema Respiratory: Denies cough, sputum, SOB, wheezing, orthopnea GI: +EPIGASTRIC PAIN; +NAUSEA; +DRY HEAVES; Denies vomiting, constipation, diarrhea, melena/hematochezia : Denies dysuria, frequency, hematuria Musculoskeletal: Denies joint/muscle aches, weakness, swelling Neurologic: +DIZZINESS; Denies numbness/tingling, weakness Psychiatric: Deferred Endocrine: Deferred Hematologic/Lymphatic: Denies bleeding/clotting abnormalities Skin: Denies rash, itch, new skin changes, easy bruising Allergy/Immunologic: Deferred Physical Exam Vital Signs Date Time Temp Pulse Resp B/P Pulse Ox O2 Delivery O2 Flow Rate FiO2 01/02/17 13:48 123/60 01/02/17 13:43 56 17 100 Nasal Cannula 2.0 01/02/17 13:38 55 15 100 Nasal Cannula 2.0 01/02/17 13:33 63 17 100 Nasal Cannula 2.0 01/02/17 13:28 64 23 100 Nasal Cannula 2.0 01/02/17 13:23 54 15 100 Nasal Cannula 2.0 01/02/17 13:18 59 17 100 Nasal Cannula 2.0 01/02/17 13:13 57 17 100 Nasal Cannula 2.0 01/02/17 13:08 55 18 100 Nasal Cannula 2.0 01/02/17 13:03 58 22 100 Nasal Cannula 2.0 01/02/17 12:58 53 21 100 Nasal Cannula 2.0 01/02/17 12:55 121/55 01/02/17 12:53 54 15 100 Nasal Cannula 2.0 01/02/17 12:50 53 01/02/17 12:48 53 22 129/58 100 Nasal Cannula 2.0 01/02/17 12:43 54 21 99 Nasal Cannula 2.0 01/02/17 12:42 100 Nasal Cannula 2.0 01/02/17 12:40 100 Nasal Cannula 2.0 01/02/17 12:40 36.8 58 20 142/66 97 Nasal Cannula 2.0 01/02/17 12:40 142/66 PHYSICAL EXAM:: General Appearance: WDWN in NAD who is A&O x 3 HEENT: Head is normocephalic/atraumatic; EOMI; PERRLA; Hearing grossly intact; Mucous membranes moist; Pharynx negative for exudate/lesions Neck: Supple; Trachea midline; Neg JVD; Neg lymphadenopathy Heart: RRR with no M/G/R Lungs: CTA in all lung kim bilaterally but diminished; Respirations unlabored ; Neg accessory muscle use Abdomen: Soft, non-tender, non-distended; Positive BS x 4 quadrants; Neg organomegaly Extremities: Capillary refill < 2 seconds; Neg cyanosis or edema Neurological: Speech clear; Gross motor/sensory function intact; Neg focal neurologic deficits Psychiatric: Appropriate mood/affect Skin: Normal Color; Warm/Dry; Neg rashes, ecchymosis, lacerations/ulcerations Diagnostics Laboratory Results Results Past 24 Hours Test 01/02/17 12:45 01/02/17 12:47 01/02/17 12:50 Range/Units White Blood Count 12.17 4.8-10.8 K/uL Red Blood Count 3.82 4.7-6.1 M/uL Hemoglobin 11.6 14.0-18.0 g/dL Hematocrit 34.5 42-52 % Mean Corpuscular Volume 90.3 80-100 fL Mean Corpuscular Hemoglobin 30.4 25-34 pg Mean Corpuscular Hemoglobin Concent 33.6 32-36 g/dl RDW Standard Deviation 45.7 36.4-46.3 fL RDW Coefficient of Variation 13.8 11.5-14.5 % Platelet Count 207 130-400 K/uL Mean Platelet Volume 9.4 7.4-10.4 fL Prothrombin Time 62.3 9.0-12.0 SECONDS Prothromb Time International Ratio 5.4 0.9-1.1 Activated Partial Thromboplast Time 60.6 21.0-31.0 SECONDS Partial Thromboplastin Ratio 2.3 Sodium Level 140 136-145 mmol/L Potassium Level 4.2 3.5-5.1 mmol/L Chloride Level 107 98-107 mmol/L Carbon Dioxide Level 24 21-32 mmol/L Anion Gap 9.0 19.0 16-25 mmol/L Blood Urea Nitrogen 35 7-18 mg/dl Creatinine 2.90 0.60-1.40 mg/dl Est Creatinine Clear Calc Drug Dose 14.7 ml/min Estimated GFR () 21.6 Estimated GFR (Non- 18.6 BUN/Creatinine Ratio 12.1 10-20 Random Glucose 129 70-99 mg/dl Calcium Level 8.3 8.5-10.1 mg/dl Total Bilirubin 0.6 0.2-1 mg/dl Aspartate Amino Transf (AST/SGOT) 16 15-37 U/L Alanine Aminotransferase (ALT/SGPT) 12 12-78 U/L Alkaline Phosphatase 72 45-117 U/L Total Creatine Kinase 97 39-308 U/L Creatine Kinase MB 1.7 0.5-3.6 ng/ml Creatine Kinase MB Ratio 1.8 0-3.0 Total Protein 6.6 6.4-8.2 gm/dl Albumin 3.1 3.4-5.0 gm/dl Globulin 3.5 2.5-4.0 gm/dl Albumin/Globulin Ratio 0.9 0.9-2 Lipase 152 73-393 U/L Bedside Prothrombin Time INR 6.1 0.9-1.1 Bedside Troponin I 0.000 0-0.045 ng/ml Bedside Hemoglobin 11.6 14.0-18.0 g/dl Bedside Hematocrit 34 42-52 % Bedside Sodium 139 135-144 mEq/L Bedside Potassium 4.3 3.3-5.0 mEq/L Bedside Chloride 105 101-112 mEq/L Bedside Total CO2 21 24-31 mEq/l Bedside Blood Urea Nitrogen 35 7-18 mg/dl Bedside Creatinine 2.6 0.6-1.3 mg/dl Bedside Glucose (other) 127 70-99 mg/dl Bedside Ionized Calcium (Tim) 1.12 1.12-1.32 mmol/l Diagnostic Radiology CHEST ONE VIEW PORTABLE CLINICAL HISTORY: Chest pain. Heart alert. COMPARISON STUDY: Chest radiograph July 25, 2016. FINDINGS: Lung volumes are normal. Post surgical findings within the right hemithorax are unchanged. Cardiac size is normal. Mediastinal contours are normal. There is no evidence of pulmonary edema. IMPRESSION: No acute cardiopulmonary findings. EKG EKG (EMS) - revealed ST elevations of II, III, aVF EKG (HOSPITAL) Sinus bradycardia Nonspecific T wave abnormality Abnormal ECG When compared with ECG of 25-JUL-2016 16:20, T wave inversion now evident in Inferior leads Nonspecific T wave abnormality now evident in Lateral leads Impression Assessment and Plan Mr. Chiang is an 86 y/o male with PMHx of Crohn's Disease, HTN, Paroxysmal Atrial Fibrillation, CKD, Parkinson's Disease, and Prostate CA who presents to the ED for resolved epigastric pain that started approximately at 1100. EKG enroute to hospital reveals ST elevation in leads II, III, aVF. Acute Myocardial Infarction: Inferior Leads - Monitor on telemetry with serial cardiac enzymes - ASA 81 mg daily - Atorvastatin 40 mg daily - Metoprolol 12.5 mg daily - ACEI contraindicated at this time due to PRASANNA/CKD - Nitroglycerin ointment 0.5 inch Q6H - Consult cardiology - Dr. Kelley - discussed plan with him and patient at bedside -- Due to supratherapeutic INR - withhold PCI at this time - will not need to initiate heparin drip at this time Acute Kidney Injury on Chronic Kidney Disease Stage III: Baseline 1.5-1.9 - NSS at 75 mL/hr - Trend BMP Supratherapeutic INR: - Hold Coumadin - discussed with Dr. Kelley - will not give reversal agents at this time - Trend INR - plan for PCI in 1-2 days Paroxysmal Atrial Fibrillation: Rate Controlled - Continue metoprolol and hold Coumadin as INR currently supratherapeutic Parkinson's Disease: - Sinemet 1 tab QID and Paxil 20 mg daily DVT Prophylaxis: Supratherapuetic INR Code Status: FULL RESUSCITATION Disposition: [facility] resident - PT/OT evaluations ATTENDING ATTESTATION I have seen and examined the patient and agree with the assessment and plan as stated above by PAC- Radha. Patient is a 86 y.o.M who presented initially STEMI EKG changes which resolved at time of admission. Patient was admitted for ACS Vitals- reviewed GEN- NAD CVS- RRR RESP- bibasilar crackles ABD- +BS EXT- no cyanosis, clubbing, edema Labs- reviewed ACS- pt known to Dr. Kelley of cardiology who saw him the the ED, telemetry, cont BB/statin/ASA Acute on CKD- start IVF/check BMP in am Coagulopathy- hold coumadin/check INR in am Level of Care Telemetry Resuscitation Status FULL RESUSCITATION VTE Prophylaxis VTE Risk Assessment Done? Y/N: Yes Risk Level: Moderate Given or contraindicated: Warfarin (Coumadin) (Supratherapeutic INR), T.E.D. Stockings, SCD's Social Service Consult [facility]
[2017-01-02 15:59] VITALS: BP 122/61; PULSE 65; TEMP 36.8; O2SAT 98
[2017-01-02 16:17] VITALS: BP 122/61; PULSE 65; TEMP 36.8; O2SAT 94; Ht 180.3 cm; Wt 57.0 kg
--- NOTE | 2017-01-02 18:29 | CARDIOLOGY CONSULTATION ---
DATE OF CONSULTATION: 01/02/2017 REFERRING PHYSICIAN: Beltran Botello MD PRIMARY CARE PHYSICIAN: Drew Cheung MD, [facility] and [facility]. INDICATIONS: Aborted inferior infarct. HISTORY OF PRESENT ILLNESS: The patient is an 86-year-old male whose history is notable per review of records and discussion with patient, history of past atrial fibrillation in the setting of acute GI illness in 2003. He has remained on chronic anticoagulation since that time without recurrence of arrhythmias. Underlying medical problems include Parkinsonism with mild Parkinsonian dementia, prostate carcinoma, pernicious anemia, history of past renal lithiasis. He is currently a resident at [facility]. He denies any prior history of cardiac disease, myocardial infarction, angina or congestive heart failure other than atrial arrhythmias as described in the remote past. Family notes and he notes that he had not been feeling well for 1-2 days with possible early cold. Yesterday he had a transient episode of nausea. Today after presenting for a meal, he developed severe epigastric lower substernal chest discomfort with associated pallor and malaise, symptoms associated with spinning sensation in the head and marked nausea with dry heaves but no emesis. Ambulance was called and he was given Zofran and 4 baby aspirin. EKG initially on evaluation demonstrated inferoposterior infarct pattern. The patient's pain abruptly ended en route and symptoms resolved on ER presentation. He is referred now for further evaluation. Currently, pain free and comfortable. He notes having had INR checked this morning which demonstrated elevated prothrombin time. On further review, he denies any recent fevers or chills. Does not a possible early cold. Notes no productive cough. Notes no melena, hematochezia, dysuria or hematuria. Weight has been gradually trending downward. Notes not dysuria or hematuria. He is modestly active about his home, swept a garage out etcetera over the weekend with generally good tolerance. Notes no headache or visual changes. Notes no acute neurologic complaints. Denies any prior history of TIA or stroke, rheumatic fever, scarlet fever. ALLERGIES: PROPOXYPHENE. MEDICATIONS: Prior to hospitalization were Sinemet 25/100 one tablet q.i.d.; vitamin D3 one tablet q. day; B12 1000 mcg q. day; metoprolol succinate 12.5 mg p.o. q. day; paroxetine 20 mg p.o. q. day; warfarin 2 mg Jose Francisco, Monday, Monday, 1 mg all the days, currently on hold. PAST SURGICAL HISTORY: Notable for prior appendectomy, past lithotripsy, and multiple urinary stone interventions. FAMILY HISTORY: Not specifically notable for heart disease. SOCIAL HISTORY: The patient smokes 1-2 cigarettes on occasion, uses rare alcoholic beverages. PHYSICAL EXAMINATION: VITAL SIGNS: Heart rate is currently 60, blood pressure is 123/60. HEENT: Normocephalic and atraumatic. Nares without discharge. Throat was clear. NECK: Supple. There is no thyromegaly or adenopathy. LUNGS: Mildly diminished breath sounds but generally clear. CARDIOVASCULAR: Regular with normal S1 and S2. There are somewhat distant heart sounds. There is no audible murmur or rub. PMI is nondisplaced. ABDOMEN: Soft, nontender. There is no palpable hepatosplenomegaly. There is no hepatojugular reflex. There is no abdominal or femoral bruits. EXTREMITIES: Free of edema with intact distal pulses at 2+/4 femoral and 1/4 dorsalis pedis and posterior tibialis. LABORATORY DATA: EKG en route demonstrated 1-[address] elevation with reciprocal posterior ST depressions, 2, 3 and aVF and V1, V2. EKG on the ER presentation revealed sinus bradycardia, rate of [address] segment changes. T-wave inversion in lead 3. LABORATORY STUDIES: Sodium is 139, potassium is 4.3, chloride is 105, bicarbonate is 21, BUN is 35, creatinine is 2.6, glucose is 127, albumin level is 3.1. INR is 6.1, hemoglobin is 11.6, platelet count of 207. IMPRESSION: An 86-year-old male presents with severe abdominal pain and epigastric discomfort and aborted acute inferior infarct by EKG, and transferred to the Emergency Room. His past history is notable for atrial fibrillation on chronic anticoagulation with Coumadin with supratherapeutic INR. Symptoms have resolved. EKG has returned to within normal limits other than T-wave inversion in lead 3. RECOMMENDATIONS: I have discussed findings in detail with patient noting findings likely reflect aborted infarct and strong likelihood of possible recurrence. We plan on admitting to telemetry unit, allowing INR to come down and initiating anticoagulation as needed as towards progresses. Renal insufficiency is notable with creatinine of 2.6 up from baseline of 1.5. Full cardiac assessment will be ordered including ultrasound/echocardiogram. Consideration will be made for diagnostic cardiac catheterization depending on clinical course and his INR and renal function improves. The patient has acute decline. The patient may need to consider cardiac catheterization urgently. The patient remains at elevated risk given multiple issues, age and renal insufficiency. We will follow patient closely in the hospital. In the interim continue topical nitrates, beta [place] and aspirin. MTDD
[2017-01-02] MEDS ORDERED: SODIUM CHLORIDE 0.9% 500ML 500 ML IV SCH (18:45)
[2017-01-02] MEDS: CARBIDOPA/LEVODOPA 25/100MG TAB PO SCH ×2 (19:02→21:23)
[2017-01-02] MEDS: NITROGLYCERIN OINT 2% 1GM PACKET EXT SCH (19:02)
[2017-01-02] MEDS: SODIUM CHLORIDE 0.9% 1000ML 1,000 ML IV SCH (19:03)
[2017-01-02 19:31] LABS: CKMB/CK RATIO 2.2 (0-3.0)
[2017-01-02 19:36] VITALS: BP 99/59; PULSE 59; TEMP 37.1; O2SAT 96
[2017-01-02 23:46] VITALS: BP 88/39; PULSE 63; TEMP 36.5; O2SAT 98
[2017-01-03] VITALS (9 sets, daily range): BP systolic 85–134; BP diastolic 44–65; PULSE 47–61; TEMP 36.4–36.8; O2SAT 96–100
[2017-01-03] MEDS: NITROGLYCERIN OINT 2% 1GM PACKET EXT SCH ×4 (00:10→16:59)
[2017-01-03 01:08] LABS: CKMB/CK RATIO 2.2 (0-3.0)
[2017-01-03 07:32] LABS: HEMATOCRIT 30.1 % (42-52); MEAN CELL VOLUME 91.2 fL (80-100); MEAN CORPUSCULAR HEMOGLOBIN 30.6 pg (25-34); MEAN CORPUSCULAR HGB CONC 33.6 g/dl (32-36); MEAN PLATELET VOLUME 9.6 fL (7.4-10.4); PLATELET COUNT 183 K/uL (130-400); WHITE BLOOD COUNT 8.61 K/uL (4.8-10.8)
[2017-01-03 07:45] LABS: PROTHROMBIN TIME (PATIENT) 48.8 SECONDS (9.0-12.0)
[2017-01-03] MEDS: CARBIDOPA/LEVODOPA 25/100MG TAB PO SCH ×4 (07:49→20:33)
[2017-01-03] MEDS: PAROXETINE 20 MG TAB PO SCH (07:50)
[2017-01-03] MEDS: ATORVASTATIN 40 MG TAB PO SCH (07:50)
[2017-01-03] MEDS: ASPIRIN 81 MG ECTAB PO SCH (07:50)
[2017-01-03] MEDS: METOPROLOL SUCC 25MG EXT REL TAB PO SCH (07:51)
[2017-01-03 07:52] LABS: INR 4.3 (0.9-1.1)
[2017-01-03 07:58] LABS: ESTIMATED AVERAGE GLUCOSE 126 mg/dl; HA1C FLAG Normal (Normal)
[2017-01-03 07:59] LABS: BUN/CREATININE RATIO 14.5 (10-20); CALCIUM 7.8 mg/dl (8.5-10.1); CREATININE 2.8 mg/dl (0.60-1.40); MAGNESIUM 1.9 mg/dl (1.8-2.4); POTASSIUM 4.2 mmol/L (3.5-5.1)
[2017-01-03 08:05] LABS: CHOLESTEROL/HDL RATIO 3.1
--- NOTE | 2017-01-03 08:31 | Hospitalist Progress Note ---
Hospitalist Progress Note Date of Service Jan 03, 2017. (Nasrin Carter PA-C) Subjective Pt evaluation today including: conversation w/ patient, physical exam, chart review, lab review, review of studies, review of inpatient medication list The patient was seen and examined this morning. Patient reports feeling overall ok today, denies any chest pain, flutter, palpitation, shortness of breath currently. He tells me that he was up and ambulating throughout the hallways without difficulty. He does report having substernal chest pain whenever he got back from walking. The pain subsided after 10-15 minutes, he did not ask for any pain medication or do anything which specifically alleviated the pain. Denies having any other acute complaints. Discussion was held with him regarding possibility of cardiac cath, but not until his creatinine and kidney function improves and also whenever his INR is lower. I asked him if he even wanted to have procedure, and he is unsure that he would want to have a cardiac catheterization. I encouraged him to think about this and she will not have it tomorrow, and to discuss it with his sons. Additional Comments: Constitutional: No fever, chills, sweats, fatigue or weakness Eyes: No diplopia, no changes in vision ENT: No sore throat, tinnitus, or trouble swallowing Respiratory: No shortness of breath, No dyspnea at rest or on exertion, no cough or sputum Cardiovascular: +episode of substernal chest pain this morning as per HPI. No chest pain, palpitations, or flutter currently Abdomen: No pain, No constipation, No diarrhea, No nausea, No vomiting Musculoskeletal: No calf pain, No joint pain, No swelling Genitourinary : No dysuria or urinary frequency, No hematuria Neurologic: No numbness/tingling, no difficulty with ambulation, no sensory or motor deficits Psychiatric: No depression or anxiety symptoms Endocrine: No fatigue, No weight changes Integumentary: No itch, No rash (Nasrin Carter PA-C) Objective Vital Signs Date Time Temp Pulse Resp B/P Pulse Ox O2 Delivery O2 Flow Rate FiO2 01/03/17 08:15 36.5 54 18 107/62 96 Room Air 01/03/17 04:33 112/62 01/03/17 04:19 36.6 55 20 85/44 97 Room Air 01/03/17 04:00 Room Air 01/03/17 00:07 100/62 01/03/17 00:00 Room Air 01/02/17 23:46 36.5 63 22 88/39 98 Room Air 01/02/17 20:00 Room Air 01/02/17 19:36 37.1 59 22 99/59 96 Room Air 01/02/17 16:17 36.8 65 20 122/61 94 Room Air 01/02/17 15:59 36.8 65 20 122/61 98 Room Air 01/02/17 15:15 118/59 01/02/17 15:14 58 13 100 Nasal Cannula 2.0 01/02/17 15:09 62 16 100 Nasal Cannula 2.0 01/02/17 15:04 59 16 100 Nasal Cannula 2.0 01/02/17 15:00 117/64 01/02/17 14:59 63 15 100 Nasal Cannula 2.0 01/02/17 14:54 60 14 100 Nasal Cannula 2.0 01/02/17 14:49 58 13 100 Nasal Cannula 2.0 01/02/17 14:45 116/59 01/02/17 14:44 61 13 100 Nasal Cannula 2.0 01/02/17 14:39 57 16 100 Nasal Cannula 2.0 01/02/17 14:38 58 13 100 Nasal Cannula 2.0 01/02/17 14:33 59 13 100 Nasal Cannula 2.0 01/02/17 14:30 107/63 01/02/17 14:28 61 14 100 Nasal Cannula 2.0 01/02/17 14:23 58 12 100 Nasal Cannula 2.0 01/02/17 14:18 57 14 100 Nasal Cannula 2.0 01/02/17 14:15 110/59 01/02/17 14:13 58 13 100 Nasal Cannula 2.0 01/02/17 14:08 57 16 100 Nasal Cannula 2.0 01/02/17 14:03 57 12 100 Nasal Cannula 2.0 01/02/17 14:00 112/55 01/02/17 13:58 56 16 100 Nasal Cannula 2.0 01/02/17 13:53 59 22 100 Nasal Cannula 2.0 01/02/17 13:48 56 18 123/60 100 Nasal Cannula 2.0 01/02/17 13:48 123/60 01/02/17 13:43 56 17 100 Nasal Cannula 2.0 01/02/17 13:38 55 15 100 Nasal Cannula 2.0 01/02/17 13:33 63 17 100 Nasal Cannula 2.0 01/02/17 13:28 64 23 100 Nasal Cannula 2.0 01/02/17 13:23 54 15 100 Nasal Cannula 2.0 01/02/17 13:18 59 17 100 Nasal Cannula 2.0 01/02/17 13:13 57 17 100 Nasal Cannula 2.0 01/02/17 13:08 55 18 100 Nasal Cannula 2.0 01/02/17 13:03 58 22 100 Nasal Cannula 2.0 01/02/17 12:58 53 21 100 Nasal Cannula 2.0 01/02/17 12:55 121/55 01/02/17 12:53 54 15 100 Nasal Cannula 2.0 01/02/17 12:50 53 01/02/17 12:48 53 22 129/58 100 Nasal Cannula 2.0 01/02/17 12:43 54 21 99 Nasal Cannula 2.0 01/02/17 12:42 100 Nasal Cannula 2.0 01/02/17 12:40 100 Nasal Cannula 2.0 01/02/17 12:40 36.8 58 20 142/66 97 Nasal Cannula 2.0 01/02/17 12:40 142/66 (Nasrin Carter, CHRISSY) Laboratory Results Last 24 Hours Test 01/02/17 12:45 01/02/17 12:47 01/02/17 12:50 01/02/17 18:55 White Blood Count 12.17 K/uL Red Blood Count 3.82 M/uL Hemoglobin 11.6 g/dL Hematocrit 34.5 % Mean Corpuscular Volume 90.3 fL Mean Corpuscular Hemoglobin 30.4 pg Mean Corpuscular Hemoglobin Concent 33.6 g/dl RDW Standard Deviation 45.7 fL RDW Coefficient of Variation 13.8 % Platelet Count 207 K/uL Mean Platelet Volume 9.4 fL Prothrombin Time 62.3 SECONDS Prothromb Time International Ratio 5.4 Activated Partial Thromboplast Time 60.6 SECONDS Partial Thromboplastin Ratio 2.3 Sodium Level 140 mmol/L Potassium Level 4.2 mmol/L Chloride Level 107 mmol/L Carbon Dioxide Level 24 mmol/L Anion Gap 9.0 mmol/L 19.0 mmol/L Blood Urea Nitrogen 35 mg/dl Creatinine 2.90 mg/dl Est Creatinine Clear Calc Drug Dose 14.7 ml/min Estimated GFR () 21.6 Estimated GFR (Non- 18.6 BUN/Creatinine Ratio 12.1 Random Glucose 129 mg/dl Calcium Level 8.3 mg/dl Total Bilirubin 0.6 mg/dl Aspartate Amino Transf (AST/SGOT) 16 U/L Alanine Aminotransferase (ALT/SGPT) 12 U/L Alkaline Phosphatase 72 U/L Total Creatine Kinase 97 U/L 79 U/L Creatine Kinase MB 1.7 ng/ml 1.7 ng/ml Creatine Kinase MB Ratio 1.8 2.2 Total Protein 6.6 gm/dl Albumin 3.1 gm/dl Globulin 3.5 gm/dl Albumin/Globulin Ratio 0.9 Lipase 152 U/L Bedside Prothrombin Time INR 6.1 Bedside Troponin I 0.000 ng/ml Bedside Hemoglobin 11.6 g/dl Bedside Hematocrit 34 % Bedside Sodium 139 mEq/L Bedside Potassium 4.3 mEq/L Bedside Chloride 105 mEq/L Bedside Total CO2 21 mEq/l Bedside Blood Urea Nitrogen 35 mg/dl Bedside Creatinine 2.6 mg/dl Bedside Glucose (other) 127 mg/dl Bedside Ionized Calcium (Tim) 1.12 mmol/l Troponin I < 0.015 ng/ml Test 01/03/17 00:25 01/03/17 06:50 Total Creatine Kinase 72 U/L Creatine Kinase MB 1.6 ng/ml Creatine Kinase MB Ratio 2.2 Troponin I < 0.015 ng/ml White Blood Count 8.61 K/uL Red Blood Count 3.30 M/uL Hemoglobin 10.1 g/dL Hematocrit 30.1 % Mean Corpuscular Volume 91.2 fL Mean Corpuscular Hemoglobin 30.6 pg Mean Corpuscular Hemoglobin Concent 33.6 g/dl RDW Standard Deviation 46.2 fL RDW Coefficient of Variation 13.9 % Platelet Count 183 K/uL Mean Platelet Volume 9.6 fL Prothrombin Time 48.8 SECONDS Prothromb Time International Ratio 4.3 Sodium Level 143 mmol/L Potassium Level 4.2 mmol/L Chloride Level 112 mmol/L Carbon Dioxide Level 23 mmol/L Anion Gap 8.0 mmol/L Blood Urea Nitrogen 41 mg/dl Creatinine 2.80 mg/dl Est Creatinine Clear Calc Drug Dose 14.5 ml/min Estimated GFR () 22.5 Estimated GFR (Non- 19.4 BUN/Creatinine Ratio 14.5 Random Glucose 83 mg/dl Estimated Average Glucose 126 mg/dl Hemoglobin A1c 6.0 % Calcium Level 7.8 mg/dl Magnesium Level 1.9 mg/dl Triglycerides Level 134 mg/dl Cholesterol Level 111 mg/dl HDL Cholesterol 36 mg/dl LDL Cholesterol, Calculated 48 mg/dl VLDL Cholesterol, Calculated 27 mg/dl Cholesterol/HDL Ratio 3.1 (Nasrin Carter, PAMaricruz) Assessment and Plan Mr. Chiang is an 86 y/o male with PMHx of Crohn's Disease, HTN, Paroxysmal Atrial Fibrillation, CKD, Parkinson's Disease, and Prostate CA who presents to the ED for resolved epigastric pain that started approximately at 1100. EKG enroute to hospital reveals ST elevation in leads II, III, aVF. Acute Myocardial Infarction: Inferior Leads - Cardiology on board appreciate recommendations, Dr. Kelley saw the patient- plan for possible cardiac cath when of the INR is approximately 1.6, no reversal agents given as the patient's creatinine is also elevated. Patient was not started on heparin drip as per cards - troponin 2 were negative - cont ASA 81 mg daily - cont Atorvastatin 40 mg daily - cont Metoprolol 12.5 mg daily - ACEI contraindicated at this time due to PRASANNA/CKD - Nitroglycerin ointment 0.5 inch Q6H - PT/OT evals: Patient ambulates without difficulty at baseline Acute Kidney Injury on Chronic Kidney Disease Stage III: Baseline 1.5-1.9 - Cr. 2.8 - NSS at 60 mL/hr, continue for now - Trend BMP Supratherapeutic INR: - Hold Coumadin - discussed with Dr. Kelley - will not give reversal agents at this time - INR is down to 4.3 today, plan for possible PCI in 2 days. Discussion was held with the patient regarding possible cardiac cath, he is unsure if he would REQUEST procedure at this point in time. I have asked him to think about it and discuss this with his sons. Paroxysmal Atrial Fibrillation: Rate Controlled - Patient appeared to go in and out of atrial flutter this morning on monitor, question if this is artifact or if this is patient's essential tremor from Parkinson's. Patient remains asymptomatic and denies any sort of lightheadedness, dizziness, flutter, sensation of heart racing. - Continue metoprolol and hold Coumadin as INR currently supratherapeutic Parkinson's Disease: - Sinemet 1 tab QID and Paxil 20 mg daily DVT Prophylaxis: Supratherapuetic INR, continue to hold Coumadin, ambulatory Code Status: FULL RESUSCITATION Disposition: Patient from home, he has meals provided at [facility], has 2 sons who live close by. (Nasrin Carter, PAMaricruz) Attending Attestation: Pt seen/examined, chart reviewed, care plan d/w LETICIA Carter. I agree w/ the cosby components of her documentation. No cp/sob during my visit. He is very focused on his recent abdominal pain. Epigastric in location. Occurring RIGHT after meals. Lots of nausea. No radiation of pain. VSS gen - nad, thin heart - RRR lungs - CTA b/l neck - no JVD abd - soft, NT, no HSM ext - no edema labs - Cr 2.8 A/P: 1. aborted acute inferior wall DC - defer management to Dr. Kelley 2. epigastric pain; primary GI in origin? referred pain from inferior wall of heart? Add PPI KUB x-ray; has h/o renal stones and gallstones; low threshold for CT abd/pelvis 3. acute/chronic renal failure - hydrate, BMP am; KUB x-ray to check for stones ; if Cr does not improve with fluids consider CT to r/o obstruction from stones 4. Parkinson's disease 5. supratherapeutic INR - hold coumadin, INR in am daughter updated at bedside Jere Adorno MD (Jere Adorno MD)
[2017-01-03] MEDS ORDERED: ASPIRIN 81 MG ECTAB PO SCH (09:00)
[2017-01-03] MEDS: SODIUM CHLORIDE 0.9% 1000ML 1,000 ML IV SCH (11:15)
--- NOTE | 2017-01-03 19:52 | PROGRESS NOTE ---
DATE: 01/03/2017 The patient was seen and examined. Chart, medications and telemetry were reviewed. SUBJECTIVE: The patient has had no further chest pain overnight. He notes no dizziness or lightheadedness. Notes no syncope or near syncope. Overall, he has been feeling well this morning. Telemetry demonstrated sinus bradycardia. Only note ventricular arrhythmias. OBJECTIVE: VITAL SIGNS: Heart rate is 60 and blood pressure is 107/61. HEENT: Normocephalic and atraumatic. Nares without discharge. Throat was clear. NECK: Supple without thyromegaly or lymphadenopathy. There is no jugular venous distention at 30 degrees. LUNGS: Clear. CARDIOVASCULAR: Regular. There is no S3 gallop. ABDOMEN: Soft and nontender. EXTREMITIES: Without cyanosis or clubbing. LABORATORY STUDIES: Sodium is 143, potassium is 4.2, chloride is 112, bicarbonate 23, BUN is 41 and creatinine is 2.8. White cell count is 8.6, hemoglobin is 10.1 and hematocrit 30.1. INR on presentation was 5.4, this morning it is 4.3. DATA: EKG reveals sinus bradycardia at a rate of [address] segment changes. IMPRESSION: An 86-year-old male, who presented with aborted inferoposterior infarct by EKG criteria. No recurrences of symptoms. He is on appropriate therapies including beta virignia, aspirin and statin. INR is supratherapeutic with patient on anticoagulation with Coumadin due to a single episode of atrial fibrillation in the very remote past. PLAN: Allow warfarin to taper off. Assess renal function as creatinine has remained persistently elevated despite IV hydration. As clinical course progresses consider diagnostic cardiac catheterization versus empiric medical therapies with aspirin and clopidogrel, in lieu of anticoagulation with warfarin given no current ongoing indications. We will follow up patient in the hospital. Echocardiogram for a.m. KAM
[2017-01-03] MEDS ORDERED: PANTOprazole SOD 40 MG TAB PO STA (20:59)
--- NOTE | 2017-01-03 21:48 | DIAGNOSTIC IMAGING REPORT ---
KUB HISTORY: assess for renal stones COMPARISON: KUB 07/26/2016. FINDINGS: Mildly distended gas and stool-filled colon is again noted. No evidence for bowel obstruction. Cholelithiasis. Calcifications in the deep pelvis likely represent phleboliths. These remain unchanged. Bilateral renal calculi are again noted. These are not individually changed. No definite ureteral calculi. Stable round density overlying the left hemisacrum likely represents a bone island seen within the left iliac bone on the prior examination. Dominant irregular stone within the lower pole of the left kidney measures 7 mm. No pneumoperitoneum or pneumatosis. IMPRESSION: 1. Stable bilateral nephrolithiasis. No ureteral calculi. 2. Mildly distended and stool-filled colon is again noted. 3. Cholelithiasis. Electronically signed by: Deondre Mackay M.D. 01/03/2017 9:45 PM Dictated Date/Time: 01/03/2017 9:42 PM
[2017-01-04 04:15] VITALS: BP 134/55; PULSE 55; TEMP 36.4; O2SAT 99
[2017-01-04] MEDS: SODIUM CHLORIDE 0.9% 1000ML 1,000 ML IV SCH ×2 (05:22→20:56)
[2017-01-04 07:57] VITALS: BP 131/60; PULSE 67; TEMP 36.5; O2SAT 95
[2017-01-04] MEDS: CARBIDOPA/LEVODOPA 25/100MG TAB PO SCH ×4 (08:26→20:55)
[2017-01-04] MEDS: PANTOprazole SOD 40 MG TAB PO SCH (08:27)
[2017-01-04] MEDS: PAROXETINE 20 MG TAB PO SCH (08:27)
[2017-01-04] MEDS: METOPROLOL SUCC 25MG EXT REL TAB PO SCH (08:27)
[2017-01-04] MEDS: ATORVASTATIN 40 MG TAB PO SCH (08:27)
[2017-01-04] MEDS: ASPIRIN 81 MG ECTAB PO SCH (08:27)
[2017-01-04 09:55] LABS: HEMATOCRIT 30.6 % (42-52); MEAN CELL VOLUME 91.1 fL (80-100); MEAN PLATELET VOLUME 9.4 fL (7.4-10.4); PLATELET COUNT 188 K/uL (130-400); RED BLOOD COUNT 3.36 M/uL (4.7-6.1); WHITE BLOOD COUNT 7.88 K/uL (4.8-10.8)
[2017-01-04 10:06] LABS: PROTHROMBIN TIME (PATIENT) 48.3 SECONDS (9.0-12.0)
[2017-01-04 10:18] LABS: BUN/CREATININE RATIO 13.7 (10-20); CALCIUM 7.7 mg/dl (8.5-10.1); CREATININE 2.7 mg/dl (0.60-1.40); MAGNESIUM 1.7 mg/dl (1.8-2.4); POTASSIUM 4.3 mmol/L (3.5-5.1)
[2017-01-04 10:24] LABS: INR 4.2 (0.9-1.1)
[2017-01-04 11:34] VITALS: BP 115/50; PULSE 55; TEMP 36.8; O2SAT 96
[2017-01-04 15:48] VITALS: BP 129/55; PULSE 56; TEMP 36.4; O2SAT 96
--- NOTE | 2017-01-04 19:20 | PROGRESS NOTE ---
DATE: 01/04/2017 The patient seen and examined. Chart, medications, telemetry reviewed. SUBJECTIVE: The patient denies any complaints, specifically notes no chest pains or discomfort, is mildly more confused, though is without other complaint. She is accompanied closely by family. OBJECTIVE: VITAL SIGNS: Heart rate is 56, blood pressure is 129/55. NECK: Thin. There is no jugular venous distention. There are no carotid bruits. LUNGS: Clear. CARDIOVASCULAR: Regular. There is no S3 gallop. ABDOMEN: Soft, nontender. EXTREMITIES: Without cyanosis or clubbing. There is no peripheral edema. DATA: The patient declined echo yet this morning. Sodium is 143, potassium is 4.3, chloride is 113, bicarbonate is 21, BUN 37, creatinine is 2.7. Cholesterol is 111, LDL is 48, HDL is 36. EKG this morning demonstrated sinus bradycardia with occasional atrial ectopic beats, rate 56, nonspecific ST segment changes. IMPRESSION: An 86-year-old male with underlying history of Parkinson's, mild dementia, presented with an aborted inferior posterior infarct with acute ST elevation resolving in the ambulance in transfer with aspirin and sublingual nitroglycerin. Hospital course notable for presentation with acute on chronic renal insufficiency, now asymptomatic. Echocardiogram is pending. Initial and serial cardiac enzymes are negative for infarct. PLAN: Discussed options of management. Diagnostic cardiac catheterization would aid in further revealing degree of cardiac disease that would place patient at significant risk for acute renal insufficiency and possible renal failure given age, mild general debilitation and likelihood of further complication of any procedures, will plan on managing it conservatively. Past atrial fibrillation with single episode in the remote past, will plan on discontinuing anticoagulation with Coumadin and initiating antiplatelet therapy with aspirin and clopidogrel. Will add oral nitrates. Continue very low dose beta-vir[place], consider adding a statin to regimen. Discussed this in detail with family and will reassess in a.m.
[2017-01-04 19:36] VITALS: BP 116/54; PULSE 57; TEMP 36.9; O2SAT 99
--- NOTE | 2017-01-04 20:09 | Hospitalist Progress Note ---
Hospitalist Progress Note Date of Service Jan 04, 2017. Subjective Pt evaluation today including: conversation w/ patient, conversation w/ family , physical exam Patient has no present symptoms no chest pain no shortness of breath. Patient wants to go home today and live independently. Medications Medications (Trade) Dose Ordered Sig/Jennifer Route Start Time Stop Time Status Last Admin Dose Admin Pantoprazole Sodium (Protonix Tab) 40 mg NOW STAT PO 01/03/17 20:59 01/03/17 21:11 DC 01/03/17 21:15 40 MG Pantoprazole Sodium (Protonix Tab) 40 mg QAM PO 01/04/17 09:00 02/03/17 08:59 01/04/17 08:27 40 MG Objective Vital Signs Date Time Temp Pulse Resp B/P Pulse Ox O2 Delivery O2 Flow Rate FiO2 01/04/17 19:36 36.9 57 18 116/54 99 Room Air 01/04/17 16:00 Room Air 01/04/17 15:48 36.4 56 16 129/55 96 Room Air 01/04/17 12:00 Room Air 01/04/17 11:34 36.8 55 18 115/50 96 Room Air 01/04/17 08:00 Room Air 01/04/17 07:57 36.5 67 18 131/60 95 Room Air 01/04/17 04:15 36.4 55 18 134/55 99 Room Air 01/04/17 04:08 Room Air 01/04/17 00:00 Room Air 01/03/17 23:09 36.4 52 20 125/56 100 Room Air Physical Exam General Appearance: WD/WN, no apparent distress Eyes: normal inspection ENT: hearing grossly normal Respiratory/Chest: lungs clear Cardiovascular: regular rate, rhythm Abdomen: normal bowel sounds Laboratory Results Last 24 Hours Test 01/04/17 09:17 White Blood Count 7.88 K/uL Red Blood Count 3.36 M/uL Hemoglobin 10.4 g/dL Hematocrit 30.6 % Mean Corpuscular Volume 91.1 fL Mean Corpuscular Hemoglobin 31.0 pg Mean Corpuscular Hemoglobin Concent 34.0 g/dl RDW Standard Deviation 45.7 fL RDW Coefficient of Variation 13.7 % Platelet Count 188 K/uL Mean Platelet Volume 9.4 fL Prothrombin Time 48.3 SECONDS Prothromb Time International Ratio 4.2 Sodium Level 143 mmol/L Potassium Level 4.3 mmol/L Chloride Level 113 mmol/L Carbon Dioxide Level 21 mmol/L Anion Gap 9.0 mmol/L Blood Urea Nitrogen 37 mg/dl Creatinine 2.70 mg/dl Est Creatinine Clear Calc Drug Dose 15.5 ml/min Estimated GFR () 23.5 Estimated GFR (Non- 20.3 BUN/Creatinine Ratio 13.7 Random Glucose 136 mg/dl Calcium Level 7.7 mg/dl Magnesium Level 1.7 mg/dl Assessment and Plan (1) Myocardial infarction acute Assessment & Plan: will check echo. Plan is most likely medical management only. The risk of dialysis is very high in this gentleman and presently is to high to proceed with cath. Discussed in detail with the patient and family. Medical management would include aspirin and plavix with discontinuation of coumadin. (2) Acute on chronic renal failure Assessment & Plan: iv hydration this unfortunately may be patient new baseline. (3) Acute coronary syndrome Discharge planning: home (goals of care discussed in detail....will consult palliative care for further discussion about goals once patient goes home)
[2017-01-04 22:53] VITALS: BP 144/65; PULSE 60; TEMP 36.2; O2SAT 98
[2017-01-05] VITALS (9 sets, daily range): BP systolic 113–142; BP diastolic 45–72; PULSE 59–75; TEMP 36.7–37; O2SAT 94–98
[2017-01-05 07:35] LABS: HEMATOCRIT 29.1 % (42-52); MEAN CELL VOLUME 89.3 fL (80-100); MEAN CORPUSCULAR HGB CONC 34.7 g/dl (32-36); MEAN PLATELET VOLUME 9.5 fL (7.4-10.4); PLATELET COUNT 228 K/uL (130-400); RED BLOOD COUNT 3.26 M/uL (4.7-6.1); WHITE BLOOD COUNT 8.69 K/uL (4.8-10.8)
[2017-01-05 07:52] LABS: PROTHROMBIN TIME (PATIENT) 60.2 SECONDS (9.0-12.0)
[2017-01-05 07:59] LABS: INR 5.3 (0.9-1.1)
[2017-01-05] MEDS: PAROXETINE 20 MG TAB PO SCH (08:32)
[2017-01-05] MEDS: PANTOprazole SOD 40 MG TAB PO SCH (08:32)
[2017-01-05] MEDS: ATORVASTATIN 40 MG TAB PO SCH (08:33)
[2017-01-05] MEDS: CARBIDOPA/LEVODOPA 25/100MG TAB PO SCH ×2 (08:33→14:28)
[2017-01-05] MEDS: METOPROLOL SUCC 25MG EXT REL TAB PO SCH (08:33)
[2017-01-05 08:51] LABS: BUN/CREATININE RATIO 12.2 (10-20); CREATININE 2.7 mg/dl (0.60-1.40); MAGNESIUM 1.5 mg/dl (1.8-2.4); POTASSIUM 4.2 mmol/L (3.5-5.1)
[2017-01-05 09:00] LABS: CALCIUM 8.3 mg/dl (8.5-10.1)
[2017-01-05] MEDS ORDERED: ISOSORBIDE MONONITRATE 30 MG TABCR PO SCH (09:00)
[2017-01-05] MEDS ORDERED: NURSING VERBAL MED ORDER ONE (09:30)
--- NOTE | 2017-01-05 09:47 | ECHOCARDIOGRAM REPORT ---
*NOTICE TO RECEIVING [employer] This information is strictly Confidential and protected under [place] law. [place] law prohibits you from making any further disclosure of this information unless further disclosure is expressly permitted by the written consent of the person to whom it pertains or is authorized by law. A general authorization for the release of medical or other information is not sufficient for this purpose. Hospital accepts no responsibility if the information is made available to any other person, INCLUDING THE PATIENT. Interpretation Summary * Name: CLYDE BANERJEE Study Date: 01/05/2017 07:22 AM BP: 134/72 mmHg * Patient Location: [facility] HR: 75 * : 1930 (M/d/yyyy) Gender: Male Height: 71 in * Age: 86 yrs Ethnicity: CA Weight: 121 lb * Ordering Physician: Rodrigo Kelley MD, [facility] * Performed By: Jaky Bhakta RDCS * * Reason For Study: Chest pain * BSA: 1.7 m2 * -- Conclusions -- * The left ventricle is normal in size. * There is normal left ventricular wall thickness. * There is mild inferior wall hypokinesis. * Left ventricular systolic function is normal. * Ejection Fraction = 55-60%. * There is mild mitral annular calcification. * There is mild to moderate mitral regurgitation. * There is trace tricuspid regurgitation. Procedure Details * A complete two-dimensional transthoracic echocardiogram was performed (2D, M-mode, Doppler and color flow Doppler). Left Ventricle * The left ventricle is normal in size. * There is normal left ventricular wall thickness. * Ejection Fraction = 55-60%. * Left ventricular systolic function is normal. * There is mild inferior wall hypokinesis. Right Ventricle * The right ventricle is normal in size and function. Atria * The left atrium is mildly dilated. * Right atrial size is normal. * No ASD detected; PFO is not assessed. Mitral Valve * There is mild mitral annular calcification. * There is no mitral valve stenosis. * There is mild to moderate mitral regurgitation. Tricuspid Valve * The tricuspid valve anatomy is normal. * There is no tricuspid stenosis. * There is trace tricuspid regurgitation. * Doppler findings do not suggest pulmonary hypertension. Aortic Valve * The aortic valve is trileaflet. * No hemodynamically significant valvular aortic stenosis. * No aortic regurgitation is present. Pulmonic Valve * The pulmonic valve is not well visualized. Great Vessels * The aortic root is normal size. Pericardium/Pleural * There is no pericardial effusion. Great Vessels * Normal inferior vena cava diameter and respiratory variation suggests normal central venous pressure. MMode 2D Measurements and Calculations IVSd 0.88 cm LVIDd 3.6 cm LVIDs 2.5 cm LVPWd 1.0 cm IVS/LVPW 0.86 FS 30.1 % EDV(Teich) 53.9 ml ESV(Teich) 22.5 ml EF(Teich) 58.3 % EDV(cubed) 46.1 ml ESV(cubed) 15.7 ml EF(cubed) 65.8 % LV mass(C)d 99.9 grams LV mass(C)dI 58.6 grams/m\S\2 SV(Teich) 31.4 ml SI(Teich) 18.5 ml/m\S\2 SV(cubed) 30.3 ml SI(cubed) 17.8 ml/m\S\2 Ao root diam 3.7 cm Ao root area 10.9 cm\S\2 LA dimension 2.5 cm asc Aorta Diam 3.3 cm LA/Ao 0.68 LVOT diam 2.0 cm LVOT area 3.1 cm\S\2 LVAd ap4 22.9 cm\S\2 LVLd ap4 7.2 cm EDV(MOD-sp4) 58.9 ml EDV(sp4-el) 61.6 ml LVAs ap4 13.3 cm\S\2 LVLs ap4 6.1 cm ESV(MOD-sp4) 25.7 ml ESV(sp4-el) 24.7 ml EF(MOD-sp4) 56.3 % EF(sp4-el) 59.9 % LVAd ap2 23.4 cm\S\2 LVLd ap2 7.4 cm EDV(MOD-sp2) 63.9 ml EDV(sp2-el) 63.0 ml LVAs ap2 13.5 cm\S\2 LVLs ap2 6.3 cm ESV(MOD-sp2) 26.5 ml ESV(sp2-el) 24.3 ml EF(MOD-sp2) 58.5 % EF(sp2-el) 61.4 % LVLd %diff 2.0 % EDV(MOD-bp) 61.5 ml LVLs %diff 3.9 % ESV(MOD-bp) 26.1 ml EF(MOD-bp) 57.5 % SV(MOD-sp4) 33.2 ml SI(MOD-sp4) 19.5 ml/m\S\2 SV(MOD-sp2) 37.4 ml SI(MOD-sp2) 22.0 ml/m\S\2 SV(MOD-bp) 35.4 ml SI(MOD-bp) 20.8 ml/m\S\2 SV(sp4-el) 36.9 ml SI(sp4-el) 21.7 ml/m\S\2 SV(sp2-el) 38.6 ml SI(sp2-el) 22.7 ml/m\S\2 Doppler Measurements and Calculations MV E max huma 97.5 cm/sec MV A max huma 89.2 cm/sec MV E/A 1.1 MV dec time 0.18 sec Ao V2 max 110.3 cm/sec Ao max PG 4.9 mmHg Ao max PG (full) 2.4 mmHg SYLVIA(V,A) 2.2 cm\S\2 SYLVIA(V,D) 2.2 cm\S\2 LV V1 max PG 2.4 mmHg LV V1 max 78.1 cm/sec PA V2 max 81.4 cm/sec PA max PG 2.7 mmHg PA acc slope 439.5 cm/sec\S\2 PA acc time 0.15 sec PA pr(Accel) 12.5 mmHg
[2017-01-05] MEDS ORDERED: PHYTONADIONE 5 MG TAB PO ONE (10:00)
[2017-01-05] MEDS: ASPIRIN 81 MG ECTAB PO SCH (10:03)
[2017-01-05] MEDS ORDERED: PHYTONADIONE 5 MG TAB PO STA (11:10)
[2017-01-05] MEDS ORDERED: CLOPIDOGREL BISULFATE 75 MG TAB PO ONE (11:15)
--- NOTE | 2017-01-05 11:51 | PROGRESS NOTE ---
DATE: 01/05/2017 CARDIOLOGY CONSULTATION FOLLOWUP NOTE The patient seen and examined. Chart, medications, telemetry reviewed. SUBJECTIVE: The patient notes no complaints overnight. He is ambulatory in the hallway this morning with physical therapy. Denies any chest pains, tachypalpitations, dizziness or lightheadedness. Appetite has been fair. OBJECTIVE: VITAL SIGNS: Heart rate is 60, blood pressure is 113/68. NECK: Thin. There is no jugular venous distention. No carotid bruits. LUNGS: Clear. CARDIOVASCULAR: Regular. There is no S3 gallop. ABDOMEN: Soft. EXTREMITIES: Without cyanosis or clubbing. There is no peripheral edema. DATA: Echocardiogram this morning demonstrates very mild hypokinesis of the inferior wall with otherwise preserved LV function, mild to moderate mitral insufficiency. RECOMMENDATIONS AND PLAN: As outlined with the patient and family, the patient is extremely high risk for coronary intervention. Will continue conservative medical therapy. Vitamin K has been administered, reverse INR this morning, will begin clopidogrel initially at 75 mg per day. Continue all other medications as prescribed including isosorbide mononitrate, aspirin, metoprolol XL 12.5 mg per day, atorvastatin 40 mg p.o. every day.
[2017-01-05] MEDS: SODIUM CHLORIDE 0.9% 1000ML 1,000 ML IV SCH (14:28)
--- NOTE | 2017-01-05 15:34 | Palliative Care Consultation ---
Consultation Date of Consultation: Jan 05, 2017. Requesting Physician: Dr. Fontaine Attending Physician: Dr. Fontaine Reason for Consultation: Goals of care History of Present Illness This 86 year old male patient presented to the ED three days ago c/o epigastric pain and feeling like the room was spinning while he was at [facility] where he goes daily for meals. When EMS arrived, patient had ST elevation on his EKG- - they gave patient ASA and nitro. In ED, heart alert was called. EKG then showed T-wave inversions but no ST elevation. WBC 12k, INR 6.1, creatinine 2.60. Patient unable to have heart catheterization, treated medically on telemetry unit. Patients been experiencing some hospital delirium and weakness/ unsteady gait. He normally lives home alone, has history of Parkinson's disease and others listed below. Palliative consulted to assist with goals of care. I first met with patient's family: two sons Guanaco and Leo, two daughter in laws Roxi and Vanessa. talent acquisition operations manager, TYSHAWN Isaacs, also present. Family states that patient is mostly independent. He goes to [facility] personal long term daily for his meals. Of note, patient lost his just a few months ago and has since seemed a little depressed. He has not been eating or drinking as much , possibly losing some weight, and has had an overall functional status decline. Family is concerned about him living alone. They are unsure at this point what the best plan is, but they know patient would like to go home. I asked if patient ever discussed advance directives, they denied. However, they know the patient would not want any heroic measures such as CPR, intubation, feeding tube or dialysis. Ultimately, goal is to have patient at home for as long as possible. I encouraged them to think about the future plans if he is unable to be at home. We discussed discharge planning options: hospice, personal long term, SNF for short term rehab. We then met with the patient in 242-2. Dr. Fontaine present for conversation. Patient states he wants to go home, very resistant to rehab at SNF, although family was trying to push for this. Patient still has some level of confusion, but was answering questions appropriately. Finally, patient and family decided to take patient home, have someone with him 24-hours a day, start with home health for some therapy then transition to hospice. Private-pay caregiver list provided. Past Medical/Surgical History Medical History: Crohn's disease Parkinson's disease Heart disease Hypertension Kidney stones Prostate cancer Social History Smoking Status: Light Tobacco Smoker History of Alcohol Use: No Marital Status: Housing Status: lives alone Occupation Status: retired Review of Systems Constitutional: + weakness Respiratory: No cough, No dyspnea on exertion, No shortness of breath Cardiac: No chest pain, No edema Abdomen: No nausea, No pain, No vomiting Male : No problem reported Neurologic: + problem reported (tremors from Parkinson's) Allergies Coded Allergies: Amoxicillin (Verified Allergy, Unknown, ., 01/02/17) Propoxyphene (Verified Allergy, Unknown, DARVON, 01/02/17) Medications Current Inpatient Medications Medications (Trade) Dose Ordered Sig/Jennifer Route Start Time Stop Time Status Last Admin Dose Admin Aspirin (Ecotrin Tab) 81 mg QAM PO 01/03/17 09:00 02/02/17 08:59 01/05/17 10:03 81 MG Acetaminophen (Tylenol Tab) 650 mg Q4H PRN PO 01/02/17 13:45 02/01/17 13:44 Al Hydrox/Mg Hydrox/Simethicone (Maalox Max Susp) 15 ml Q4H PRN PO 01/02/17 13:45 02/01/17 13:44 Magnesium Hydroxide (Milk Of Magnesia Susp) 30 ml Q12H PRN PO 01/02/17 13:45 02/01/17 13:44 Ondansetron HCl (Zofran Inj) 4 mg Q6H PRN IV 01/02/17 13:45 02/01/17 13:44 Nitroglycerin (Nitrostat Tab) 0.4 mg UD PRN SL 01/02/17 13:45 02/01/17 13:44 Morphine Sulfate (MoRPHine SULFATE INJ) 2 mg Q30M PRN IV 01/02/17 13:45 01/16/17 13:44 Polyethylene (Miralax Powder Packet) 17 gm DAILY PRN PO 01/02/17 13:45 02/01/17 13:44 Carbidopa/Levodopa (Sinemet 25/ 100MG Tab) 1 tab QID PO 01/02/17 17:00 02/01/17 16:59 01/05/17 14:28 1 TAB Metoprolol Succinate (Toprol Xl Tab) 12.5 mg DAILY PO 01/03/17 09:00 02/02/17 08:59 01/05/17 08:33 12.5 MG Paroxetine HCl (pAXil TAB) 20 mg DAILY PO 01/03/17 09:00 02/02/17 08:59 01/05/17 08:32 20 MG Atorvastatin Calcium 40 mg 40 mg DAILY PO 01/03/17 09:00 02/02/17 08:59 01/05/17 08:33 40 MG Sodium Chloride (Nss 1000ml) 1,000 ml @ 60 mls/hr [id number] IV 01/02/17 19:00 02/01/17 18:59 01/05/17 14:28 60 MLS/HR Pantoprazole Sodium (Protonix Tab) 40 mg QAM PO 01/04/17 09:00 02/03/17 08:59 01/05/17 08:32 40 MG Isosorbide Mononitrate (Imdur Ext Rel Tab) 30 mg QAM PO 01/05/17 09:00 02/04/17 08:59 01/05/17 10:03 30 MG Clopidogrel Bisulfate (plAVix TAB) 75 mg QAM PO 01/06/17 09:00 02/05/17 08:59 Physical Exam Date Time Temp Pulse Resp B/P Pulse Ox O2 Delivery O2 Flow Rate FiO2 01/05/17 12:00 96 Room Air 01/05/17 11:05 36.9 60 20 113/68 97 Room Air 01/05/17 08:15 36.7 75 16 134/72 94 Room Air 01/05/17 08:00 96 Room Air 01/05/17 04:00 96 Room Air 01/05/17 02:40 37.0 65 18 142/51 96 Room Air 01/05/17 00:00 98 Room Air 01/04/17 22:53 36.2 60 18 144/65 98 Room Air 01/04/17 20:00 Room Air 01/04/17 19:36 36.9 57 18 116/54 99 Room Air 01/04/17 16:00 Room Air 01/04/17 15:48 36.4 56 16 129/55 96 Room Air General Appearance: no apparent distress, + cachetic, + thin ENT: hearing grossly normal Neck: no JVD Respiratory: lungs clear, no respiratory distress, no accessory muscle use Cardiovascular: regular rate, rhythm, no edema, + normal peripheral pulses Abdomen: normal bowel sounds, non tender, soft Neurologic/Psychiatric: alert, normal mood/affect, oriented x 3 (some foretfulness) Laboratory Results Last 24 Hours Test 01/05/17 06:57 White Blood Count 8.69 K/uL Red Blood Count 3.26 M/uL Hemoglobin 10.1 g/dL Hematocrit 29.1 % Mean Corpuscular Volume 89.3 fL Mean Corpuscular Hemoglobin 31.0 pg Mean Corpuscular Hemoglobin Concent 34.7 g/dl RDW Standard Deviation 44.3 fL RDW Coefficient of Variation 13.6 % Platelet Count 228 K/uL Mean Platelet Volume 9.5 fL Prothrombin Time 60.2 SECONDS Prothromb Time International Ratio 5.3 Sodium Level 144 mmol/L Potassium Level 4.2 mmol/L Chloride Level 115 mmol/L Carbon Dioxide Level 22 mmol/L Anion Gap 7.0 mmol/L Blood Urea Nitrogen 33 mg/dl Creatinine 2.70 mg/dl Est Creatinine Clear Calc Drug Dose 15.5 ml/min Estimated GFR () 23.5 Estimated GFR (Non- 20.3 BUN/Creatinine Ratio 12.2 Random Glucose 95 mg/dl Calcium Level 8.3 mg/dl Magnesium Level 1.5 mg/dl Assessment & Plan Palliative Performance Scale: 60 % (some foretfulness) Problem list: Weakness/unsteady gait Decreased PO intake Parkinson's disease NSTEMI Afib Goals of care (Z51.5) Palliative care plan: discussed with patient, both sons Guanaco and Leo, two [id number] Roxi and Vanessa, and Dr. Fontaine. -Plan is for patient to go home with 24-hour care between family, private pay caregivers, and home health -Goal is for comfort and to stay out of the hospital -Plan to go home with home health with transition to hospice -Patient will continue to go to [facility] from 11a-6p -Patient has no pain or discomfort at this time -Will be discharged this evening Thank you kindly for this consult. Please contact me with any further palliative needs.
[2017-01-05] MEDS ORDERED: TPRSR/25 PO (15:54)
[2017-01-05] MEDS ORDERED: PLV75 PO (15:54)
--- NOTE | 2017-01-05 16:02 | Discharge Instructions ---
Discharge Instructions Date of Service Jan 05, 2017. Admission Reason for Admission: Myocardial Infarction Acute Discharge Discharge Diagnosis / Problem: Aborted Myocardial infarction Discharge Goals Goal(s): Improve function Activity Recommendations Activity Limitations: per Instructions/Follow-up section Exercise/Sports Limitations: as tolerated (with assistance) Driving or Machine Use: no driving for public and patient's safety. . Instructions / Follow-Up Instructions / Follow-Up Primary care physician in 1 week Current Hospital Diet Patient's current hospital diet: AHA Diet (Heart Healthy) Discharge Diet Recommended Diet: AHA Diet (Heart Healthy) Pending Studies Studies pending at discharge: no Laboratory Results Hemoglobin A1c Test 01/03/17 06:50 Range/Units Estimated Average Glucose 126 mg/dl Hemoglobin A1c 6.0 H 4.5-5.6 % Lipid Panel Test 01/03/17 06:50 Range/Units Triglycerides Level 134 0-150 mg/dl Cholesterol Level 111 0-200 mg/dl HDL Cholesterol 36 mg/dl Cholesterol/HDL Ratio 3.1 LDL Cholesterol, Calculated 48 mg/dl Medical Emergencies . Who to Call and When: Medical Emergencies: If at any time you feel your situation is an emergency, please call 911 immediately. . Non-Emergent Contact Non-Emergency issues call your: Primary Care Provider . Past History Medical & Surgical History: (1) Parkinsons disease (2) Acute coronary syndrome (3) Crohns disease (4) Heart disease (5) Hypertension . "Provider Documentation" section prepared by Fahad Fontaine. VTE Core Measure Inpt VTE Proph given/why not?: Warfarin (Coumadin) (Supratherapeutic INR), T.E.D. Stockings, SCD's
--- NOTE | 2017-01-05 21:56 | DISCHARGE SUMMARY ---
Please see dictated H and P for full details. The patient is an 86-year-old with a history of Crohn's, hypertension, paroxysmal atrial fibrillation, Parkinson's disease, and prostate cancer, who presented with epigastric pain, it was sharp in nature, 10/10. EKG revealed ST elevations in II, III, and aVF with reciprocal changes. An aspirin was given with nitroglycerin and his symptoms resolved. His creatinine was discovered to be 2.6, INR was 6.1 on admission. He was brought in for treatment of acute myocardial infarction in the inferior leads. Aspirin, atorvastatin, and metoprolol were given. Dr. Kelley was consulted secondary to his poor renal function and Coumadin toxicity. Percutaneous intervention was not performed. Code status was full on admission. He was admitted to telemetry. During his hospital stay, it was discovered that the patient had recently lost his late last year and his overall health has been declining. He also has Parkinson's disease which is progressing. His renal function did not change significantly with hydration. His creatinine went from 2.8 to 2.7. His estimated GFR is 20. An echocardiogram was performed. EF was 55-60%. There was mild inferior wall hypokinesis. The aortic valve was trileaflet with no hemodynamically significant valvular aortic stenosis. A palliative care consultation was obtained by Alondra Velez and cardiology consultation was obtained with Dr. Kelley. Family meeting was conducted with the patient and his family. The patient's primary goal was to be at home and remain independent for as long as possible. For that reason, he is agreeable to return home and obtain services to assist him in remaining independent. Home health services will be started with an agency that also has hospice care. There is a high suspicion that he will continue to decline. He is presently hospice appropriate based upon his multiple medical problems, advanced age, advancing Parkinson's disease, and the loss of his , all point toward a life expectancy of less than 6 months. In addition, advanced care discussion was held with the patient and he does not want to be resuscitated. His code status was changed to reflect his wishes. His Coumadin was discontinued. He was given vitamin K for continuing elevated PT and INR. We will start Plavix 2 days post-discharge and the patient will follow up with his primary care doctor in a week. DISCHARGE DIAGNOSES: 1. Coronary artery disease. Inferior wall coronary artery disease suspected based upon ST elevations which resolved with aspirin and nitroglycerin. 2. Parkinson's disease. 3. Frailty. 4. Chronic kidney disease. Time spent in review of the chart and discussion with the patient on the date of discharge 60 minutes.
[2017-01-06] MEDS ORDERED: CLOPIDOGREL BISULFATE 75 MG TAB PO SCH (09:00)
--- NOTE | 2017-01-10 13:08 | EDITING REQUIRED CODING QUERY ---
CODING QUERY To promote full compliance with coding requirements relating to patient care, provider participation is requested in all cases of medical billing coder uncertainty. Please assist us with the question(s) below: Coding Question(s): History/Physical acute [place] inferior leads. Discharge Summary- Coronary artery disease,inferior wall, suspected based upon ST elevation which resolved with aspirin and nitro. Cardiology stated aborted inferior infarct by EKG. Please check below the phrase that describes the patient's final diagnosis. Physician's Response(s): Patient was treated for an acute myocardial infarction, Present on Admission __x Patient was treated for an aborted myocardial infarction, Present on Admission Cannot clinically correlate if patient was treated for a myocardial infarction Other/ Please document: Principal Diagnosis: "_that condition established after study, to be chiefly responsible for occasioning the admission of the patient to the hospital for care." Co-Existing Principal Diagnosis: "_when two or more diagnoses equally meet the criteria for principal diagnosis as determined by the circumstances of admission, diagnostic work up, and/or therapy provided, and the Alphabetic Index, Tabular List, or another coding guideline does not provide sequencing direction, any one of the diagnoses may be sequenced first." "When the physician has documented what appears to be a current diagnosis in the body of the record, but has not included the diagnosis in the final diagnostic statement, the physician should be asked whether the diagnosis should be added." (Source Coding Clinic 2 QTR90. p3-4)
--- NOTE | 2017-01-30 18:23 | Progress Note ---
Progress Note Date of Service January 30, 2017. Progress Note GI bleeding recent [place], [id number]
[2017-07-11] MEDS ORDERED: ULT50X PO (13:29)
[2017-07-11] MEDS ORDERED: ASPEC81 PO (13:29)
== END 2017-01-05 17:36 | disposition home health service (06) | DRG 303 ==
LOC: ENRESERVTM → ENRESERVDT → EDBD 12:38 → C.EDB 12:39 → C.2T 13:56
PROVIDERS: ADMIT Internal Medicine; ATTEND Internal Medicine
DX: I25.110 Atherosclerotic heart disease of native coronary artery with unstable angina pectoris (principal); K50.90 Crohn's disease, unspecified, without complications; D68.32 Hemorrhagic disorder due to extrinsic circulating anticoagulants; N17.9 Acute kidney failure, unspecified; I12.9 Hypertensive chronic kidney disease with stage 1 through stage 4 chronic kidney disease, or unspecified chronic kidney disease; N18.3 Chronic kidney disease, stage 3 (moderate); D51.0 Vitamin B12 deficiency anemia due to intrinsic factor deficiency; Z85.46 Personal history of malignant neoplasm of prostate; Z79.01 Long term (current) use of anticoagulants; Z87.891 Personal history of nicotine dependence; Z82.49 Family history of ischemic heart disease and other diseases of the circulatory system; I48.0 Paroxysmal atrial fibrillation; Z87.442 Personal history of urinary calculi; T45.515A Adverse effect of anticoagulants, initial encounter; Y92.009 Unspecified place in unspecified non-institutional (private) residence as the place of occurrence of the external cause

== ENCOUNTER 2017-01-10 13:16 | Emergency (ER) | payer OTHER ==
[~2017-01-10] VITALS: Ht 180.3 cm; Wt 55.9 kg
[~2017-01-10 13:16] MED LIST changes: -CHOL2000 PO; +CHOL20005 PO; -CMD2 PO; -CYAN3INJ SQ; +CYNI1000 SQ; -DMX250; -METO25TA3 PO; -OFLO0.3S OP; +PARO20TA3 PO; +PLV75 PO; -PRED1SUS3 OPL; +TPRSR/25 PO
[2017-01-10 13:18] VITALS: Ht 180.3 cm; Wt 55.9 kg
[2017-01-10] MEDS ORDERED: SODIUM CHLORIDE 0.9% 500ML 500 ML IV STA (13:31)
--- NOTE | 2017-01-10 13:36 | EMERGENCY ROOM VISIT NOTE ---
History Report prepared by Dominic: Manuel Dumas Under the Supervision of: Dr. Jimmy Crowder M.D. First contact with patient: 13:24 Chief Complaint: DIARRHEA Stated Complaint: DIARRHEA Nursing Triage Summary: pt sent in with family for dehydration concerns due tot pt having diarrhea all last night no complaints of pain History of Present Illness The patient is an 86 year old male who presents to the Emergency Room with complaints of episodes of diarrhea that started 4 days ago. Per the patient's family, there is concern that the patient is dehydrated. The nurses at [facility] recommended that the patient be evaluated here. The patient has felt tired and has had nasal congestion, but states that otherwise he is feeling alright. He has had 1 or 2 episodes of diarrhea per day. He denies any loss of consciousness, new chest pain, abdominal pain, urinary symptoms, or leg swelling. The patient was recently here for heart problems. He has had some chronic stomach issues with indigestion after eating. The patient notes that his chest discomfort after eating has not worsened recently. The patient's family notes that the patient's kidney levels were measured to be in the 3ish range prior to arrival. The patient has no history of stomach ulcers. Source of History: patient, family Onset: 4 days ago Position: other (global - diarrhea) Symptom Intensity: 1 or 2 episodes of diarrhea per day Timing: other (episodes) Associated Symptoms: + fatigue, No LOC, No abdominal pain, No chest pain, No urinary symptoms Note: Associated symptoms: Nasal congestion. Denies leg swelling. Review of Systems See HPI for pertinent positives & negatives. A total of 10 systems reviewed and were otherwise negative. Past Medical & Surgical Medical Problems: (1) Acute on chronic renal failure (2) Crohns disease (3) Heart disease (4) Hypertension (5) Kidney stones (6) Left ureteral calculus (7) Myocardial infarction acute (8) Parkinsons disease (9) Prostate cancer Family History Cancer Heart disease Hypertension Kidney stones Social History Smoking Status: Never Smoker Alcohol Use: none Marital Status: Housing Status: lives alone Occupation Status: retired Current/Historical Medications Scheduled Carbidopa/Levodopa (Sinemet 25MG/100MG), 1 TAB PO QID Cholecalciferol (Vitamin D3), 2,000 UNITS PO DAILY Clopidogrel Bisulfate (Clopidogrel), 75 MG PO QAM Cyanocobalamin (Cyanocobalamin), 1 ML SQ MONTHLY Metoprolol Succinate (Toprol Xl), 12.5 MG PO DAILY Pantoprazole (Protonix), 40 MG PO DAILY Paroxetine HCl (Paroxetine), 20 MG PO DAILY Allergies Coded Allergies: Amoxicillin (Verified Allergy, Unknown, ., 01/10/17) Propoxyphene (Verified Allergy, Unknown, DARVON, 01/10/17) Physical Exam Vital Signs Date Time Temp Pulse Resp B/P Pulse Ox O2 Delivery O2 Flow Rate FiO2 01/10/17 15:28 36.7 63 16 141/73 99 01/10/17 15:27 63 16 141/73 99 Room Air 01/10/17 14:47 55 18 145/69 99 01/10/17 13:18 36.7 78 16 101/63 94 Room Air Physical Exam GENERAL: Patient is elderly appearing and in no acute distress. HEENT: No acute trauma, normocephalic atraumatic, mucous membranes dry, no nasal congestion, no scleral icterus. NECK: No stridor, no adenopathy, no meningismus, trachea is midline. LUNGS: No dyspnea. Clear to auscultation and equal bilaterally. No wheeze, no rhonchi. HEART: Regular rate and rhythm. No murmurs, rubs, gallops appreciated. ABDOMEN: Soft, nontender, bowel sounds positive, no masses appreciated, no peritonitis. BACK: No midline tenderness, no CVA tenderness EXTREMITIES: Normal motion all extremities, no cyanosis, no edema. NEUROLOGIC: Alert and oriented, no acute motor or sensory deficits, no focal weakness, cranial nerves grossly intact. GCS of 15. SKIN: No rash, no jaundice, no diaphoresis. Medical Decision & Procedures ER Provider Diagnostic Interpretation: CT results are stated below per my interpretation and the radiologist's interpretation. CT HEAD WITHOUT CONTRAST (CT) CLINICAL HISTORY: Head trauma. Patient on Coumadin. COMPARISON STUDY: No previous studies for comparison. TECHNIQUE: Axial CT of the brain is performed from the vertex to the skull base. IV contrast was not administered for this examination. CT DOSE: 788.63 mGycm FINDINGS: No intra or extra-axial mass lesions are visualized. There is no CT evidence of acute cortical infarction. There is no evidence of midline shift. There is no acute hemorrhage. No calvarial fractures are visualized. There are moderately extensive white matter hypodensities likely on a small vessel basis. 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 There is no evidence of pathologic ventricular dilatation. There is no evidence of acute sinusitis IMPRESSION: Extensive white matter disease. No acute intracranial findings. Electronically signed by: Caden Schmitt M.D. 01/10/2017 2:45 PM Dictated Date/Time: 01/10/2017 2:44 PM Laboratory Results 01/10/17 13:50 Red Blood Count 3.24, Mean Corpuscular Volume 92.9, Mean Corpuscular Hemoglobin 30.6, Mean Corpuscular Hemoglobin Concent 32.9, Mean Platelet Volume 9.2, Neutrophils (%) (Auto) 79.2, Lymphocytes (%) (Auto) 10.2, Monocytes (%) (Auto) 7.9, Eosinophils (%) (Auto) 0.9, Basophils (%) (Auto) 0.3, Neutrophils # (Auto) 7.73, Lymphocytes # (Auto) 1.00, Monocytes # (Auto) 0.77, Eosinophils # (Auto) 0.09, Basophils # (Auto) 0.03 01/10/17 13:50 Test 01/10/17 13:50 White Blood Count 9.77 K/uL (4.8-10.8) Red Blood Count 3.24 M/uL (4.7-6.1) Hemoglobin 9.9 g/dL (14.0-18.0) Hematocrit 30.1 % (42-52) Mean Corpuscular Volume 92.9 fL (80-100) Mean Corpuscular Hemoglobin 30.6 pg (25-34) Mean Corpuscular Hemoglobin Concent 32.9 g/dl (32-36) Platelet Count 288 K/uL (130-400) Mean Platelet Volume 9.2 fL (7.4-10.4) Neutrophils (%) (Auto) 79.2 % Lymphocytes (%) (Auto) 10.2 % Monocytes (%) (Auto) 7.9 % Eosinophils (%) (Auto) 0.9 % Basophils (%) (Auto) 0.3 % Neutrophils # (Auto) 7.73 K/uL (1.4-6.5) Lymphocytes # (Auto) 1.00 K/uL (1.2-3.4) Monocytes # (Auto) 0.77 K/uL (0.11-0.59) Eosinophils # (Auto) 0.09 K/uL (0-0.5) Basophils # (Auto) 0.03 K/uL (0-0.2) RDW Standard Deviation 47.0 fL (36.4-46.3) RDW Coefficient of Variation 13.7 % (11.5-14.5) Immature Granulocyte % (Auto) 1.5 % Immature Granulocyte # (Auto) 0.15 K/uL (0.00-0.02) Anion Gap 6.0 mmol/L (3-11) Est Creatinine Clear Calc Drug Dose 15.2 ml/min Estimated GFR () 23.5 Estimated GFR (Non- 20.3 BUN/Creatinine Ratio 10.9 (10-20) Calcium Level 8.5 mg/dl (8.5-10.1) Magnesium Level 1.9 mg/dl (1.8-2.4) Total Bilirubin 0.5 mg/dl (0.2-1) Direct Bilirubin 0.1 mg/dl (0-0.2) Aspartate Amino Transf (AST/SGOT) 15 U/L (15-37) Alanine Aminotransferase (ALT/SGPT) 8 U/L (12-78) Alkaline Phosphatase 72 U/L (45-117) C-Reactive Protein 2.50 mg/dl (0-0.29) Total Protein 6.3 gm/dl (6.4-8.2) Albumin 2.9 gm/dl (3.4-5.0) Lipase 137 U/L (73-393) Laboratory results as reviewed by me. Medications Administered Medications (Trade) Dose Ordered Sig/Jennifer Route Start Time Stop Time Status Last Admin Dose Admin Sodium Chloride (Nss 500ml) 500 ml @ 999 mls/hr Q31M STAT IV 01/10/17 13:31 01/10/17 14:01 DC 01/10/17 13:47 999 MLS/HR ED Course 1325: The patient was evaluated in room A3. A complete history and physical exam was performed. 1331: Ordered NSS 500 ml @ 999 mls/hr IV. 1401: I reevaluated the patient and he did hit his posterior head on bricks a week ago when he fell backwards. He was on Coumadin at the time. He still does not feel like having a bowel movement. 1508: Reevaluated the patient and he is resting comfortably. Discussed results and discharge instructions: The patient and daughter verbalized understanding and agreement. The patient is ready for discharge. Medical Decision Differential: Viral, Bacterial, Parasitic, Iatrogenic, C-Diff, Malabsorption, Irritable Bowel Disease, IBS, Ischemic Bowel, amongst other pathologies entertained. 86 yr old male arrives for evaluation fo diarrhea. Mild dehydration thus given fluids with no issues. Soft non-tender abdomen. CT head done given recent head trauma which is normal. Labs looking OK and patient feeling well. No BM while here in department. Stable and feeling well at discharge. Impression Primary Impression: Diarrhea Additional Impressions: Dehydration Head injury, closed Scribe Attestation The scribe's documentation has been prepared under my direction and personally reviewed by me in its entirety. I confirm that the note above accurately reflects all work, treatment, procedures, and medical decision making performed by me. Departure Information Dispostion Home / Self-Care Referrals No Doctor, Assigned (PCP) Patient Instructions Diarrhea, My [facility] Health Problem Qualifiers Primary Impression: Diarrhea Diarrhea type: unspecified type Qualified Codes: R19.7 - Diarrhea, unspecified Additional Impressions: Head injury, closed Encounter type: initial encounter Qualified Codes: S09.90XA - Unspecified injury of head, initial encounter
[2017-01-10] MEDS ORDERED: METO25TA3 PO (13:51)
[2017-01-10] MEDS ORDERED: PANT40TA PO (13:51)
[2017-01-10 14:11] LABS: BASO % 0.3 %; BASO ABS # 0.03 K/uL (0-0.2); COMPLETE YES; EOS % 0.9 %; HEMATOCRIT 30.1 % (42-52); IG% 1.5 %; LYMPH % 10.2 %; MEAN CELL VOLUME 92.9 fL (80-100); MEAN CORPUSCULAR HEMOGLOBIN 30.6 pg (25-34); MEAN CORPUSCULAR HGB CONC 32.9 g/dl (32-36); MEAN PLATELET VOLUME 9.2 fL (7.4-10.4); MONO % 7.9 %; NEUT % 79.2 %; PLATELET COUNT 288 K/uL (130-400); RED BLOOD COUNT 3.24 M/uL (4.7-6.1); WHITE BLOOD COUNT 9.77 K/uL (4.8-10.8)
--- NOTE | 2017-01-10 14:47 | DIAGNOSTIC IMAGING REPORT ---
CT HEAD WITHOUT CONTRAST (CT) CLINICAL HISTORY: Head trauma. Patient on Coumadin. COMPARISON STUDY: No previous studies for comparison. TECHNIQUE: Axial CT of the brain is performed from the vertex to the skull base. IV contrast was not administered for this examination. CT DOSE: 788.63 mGycm FINDINGS: No intra or extra-axial mass lesions are visualized. There is no CT evidence of acute cortical infarction. There is no evidence of midline shift. There is no acute hemorrhage. No calvarial fractures are visualized. There are moderately extensive white matter hypodensities likely on a small vessel basis. 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 There is no evidence of pathologic ventricular dilatation. There is no evidence of acute sinusitis IMPRESSION: Extensive white matter disease. No acute intracranial findings. Electronically signed by: Caden Schmitt M.D. 01/10/2017 2:45 PM Dictated Date/Time: 01/10/2017 2:44 PM
[2017-01-10 14:54] LABS: BUN/CREATININE RATIO 10.9 (10-20); C-REACTIVE PROTEIN 2.5 mg/dl (0-0.29); CALCIUM 8.5 mg/dl (8.5-10.1); CREATININE 2.7 mg/dl (0.60-1.40); MAGNESIUM 1.9 mg/dl (1.8-2.4); POTASSIUM 4.3 mmol/L (3.5-5.1)
[2017-01-10 15:28] VITALS: BP 141/73; PULSE 63; TEMP 36.7; O2SAT 99
[2017-02-01] MEDS ORDERED: ASPEC81 PO (15:25)
[2017-07-11] MEDS ORDERED: ULT50X PO (13:29)
[2017-07-11] MEDS ORDERED: ASPEC81 PO (13:29)
== END 2017-01-10 15:29 | disposition home or self-care (01) ==
LOC: C.EDB 13:17 → C.EDA 15:29
DX: R19.7 Diarrhea, unspecified (principal); E86.0 Dehydration; S09.90XA Unspecified injury of head, initial encounter; X58.XXXA Exposure to other specified factors, initial encounter; I12.9 Hypertensive chronic kidney disease with stage 1 through stage 4 chronic kidney disease, or unspecified chronic kidney disease; N18.9 Chronic kidney disease, unspecified; I51.9 Heart disease, unspecified; I25.2 Old myocardial infarction; G20 Parkinson's disease; K50.90 Crohn's disease, unspecified, without complications; Z85.46 Personal history of malignant neoplasm of prostate; Z87.442 Personal history of urinary calculi; Z79.899 Other long term (current) drug therapy; Z88.1 Allergy status to other antibiotic agents; Z88.8 Allergy status to other drugs, medicaments and biological substances; Z80.9 Family history of malignant neoplasm, unspecified; Z82.49 Family history of ischemic heart disease and other diseases of the circulatory system; Z84.1 Family history of disorders of kidney and ureter

== ENCOUNTER 2017-01-28 10:54 | Emergency (ER) | payer OTHER ==
[~2017-01-28] VITALS: Ht 180.3 cm; Wt 58.2 kg
[~2017-01-28 10:54] MED LIST changes: +METO25TA3 PO; +PANT40TA PO; -TPRSR/25 PO
[2017-01-28 11:10] VITALS: TEMP 36.7; Ht 180.3 cm; Wt 58.2 kg
[2017-01-28] MEDS ORDERED: ASPI81TA28 PO (11:38)
--- NOTE | 2017-01-28 12:00 | EMERGENCY ROOM VISIT NOTE ---
History Report prepared by Dominic: Jeff Marie Under the Supervision of: Dr. Beth Villanueva D.O. First contact with patient: 11:46 Chief Complaint: FALL Stated Complaint: FELL HURT RIGHT HAND History of Present Illness The patient is an 86 year old male who presents to the Emergency Room with complaints of an acute fall that occurred earlier today. The patient tripped and fell today, and landed onto the floor with his right hand and face. He mostly complains of right hand pain. He was in his basement, but is not sure what he tripped over. The patient remembers the fall and does not believe that he lost consciousness. He does not believe that he hit the top of his head. He denies teeth, chest, abdomen, or extremity pain. He did not injure anything other than his hand and face. The patient is on Plavix and Aspirin. He denies headache, blurry vision, double vision, shortness of breath, nausea. Patient got up under his own power and called family. Patient does live alone. Source of History: patient Onset: today Position: other (global) Quality: other (fall) Timing: other (acute) Associated Symptoms: No LOC, No SOB, No abdominal pain, No chest pain, No headache, No nausea Review of Systems See HPI for pertinent positives & negatives. A total of 10 systems reviewed and were otherwise negative. Past Medical & Surgical Medical Problems: (1) Acute on chronic renal failure (2) Crohns disease (3) GI bleeding recent [place] (4) Heart disease (5) Hypertension (6) Kidney stones (7) Left ureteral calculus (8) Myocardial infarction acute (9) Parkinsons disease (10) Prostate cancer (11) Weight loss Family History Cancer Heart disease Hypertension Kidney stones Social History Smoking Status: Former Smoker Alcohol Use: none Marital Status: Housing Status: lives alone Occupation Status: retired Current/Historical Medications Scheduled Aspirin (Aspirin EC Low Dose), 81 MG PO DAILY Carbidopa/Levodopa (Sinemet 25MG/100MG), 1 TAB PO QID Cholecalciferol (Vitamin D3), 2,000 UNITS PO DAILY Clopidogrel Bisulfate (Plavix), 75 MG PO DAILY@NOON Cyanocobalamin (Cyanocobalamin), 1 ML SQ MONTHLY Metoprolol Succinate (Toprol Xl), 12.5 MG PO DAILY Ondasetron Odt (Zofran Odt), 4 MG SL Q6H Pantoprazole (Protonix), 40 MG PO BID Paroxetine HCl (Paroxetine), 20 MG PO DAILY Allergies Coded Allergies: Amoxicillin (Verified Allergy, Unknown, ., 01/28/17) Propoxyphene (Verified Allergy, Unknown, DARVON, 01/28/17) Physical Exam Vital Signs Date Time Temp Pulse Resp B/P Pulse Ox O2 Delivery O2 Flow Rate FiO2 01/28/17 15:58 62 18 138/69 97 01/28/17 15:29 60 18 180/82 96 Room Air 01/28/17 13:31 65 01/28/17 12:25 55 18 118/52 100 Room Air 01/28/17 11:21 62 01/28/17 11:10 36.7 98 20 104/68 98 Room Air Physical Exam GENERAL: alert, well appearing, well nourished, no distress, non-toxic HEAD: Small superficial laceration along the infraorbital margin on the left, no active bleeding, no periorbital ecchymosis or edema. Contusion over the left mandible, no other evidence of head trauma. EYE EXAM: normal conjunctiva, PERRL and EOM's grossly intact OROPHARYNX: no exudate, no erythema, lips, buccal mucosa, and tongue normal and mucous membranes are moist , no evidence of intraoral trauma. EARS: TMs clear b/l NECK: Non-tender, no stepoff, no ecchymosis. CHEST: stable to compression anteriorly and posteriorly LUNGS: clear to auscultation. Normal chest wall mechanics HEART: no murmurs, S1 normal and S2 normal ABDOMEN: abdomen soft, non-tender, normo-active bowel sounds, no masses, no rebound or guarding. PELVIS: stable to compression anteriorly and posteriorly BACK: Back is symmetrical on inspection and there is no deformity, no midline tenderness, no CVA tenderness. UPPER EXTREMITIES: Dorsal aspect of left hand with large contusion, normal sensory function, tendon function, capillary refill. Neurovascularly intact. LOWER EXTREMITIES: Normal pulses, normal sensorimotor function, normal capillary refill. NEURO EXAM: Normal sensorium, cranial nerves II-XII grossly intact, normal speech, no gross weakness of arms, no gross weakness of legs. GCS: 15. Medical Decision & Procedures ER Provider Diagnostic Interpretation: Xray results per the radiologist and my interpretation. Other results have been interpreted by the radiologist and reviewed by me. CERVICAL SPINE CT CT DOSE: HISTORY: Trauma trauma TECHNIQUE: Multiaxial CT images of the cervical spine were performed and reformatted in the sagittal and coronal plane without the use of contrast. COMPARISON: None. FINDINGS: No fractures. No subluxation. Prevertebral soft tissues and the C1-C2 interval are intact. No pneumothorax. IMPRESSION: No fractures within the cervical spine. Electronically signed by: Jose Leonard M.D. 01/28/2017 3:06 PM Dictated Date/Time: 01/28/2017 3:05 PM CHEST 2 VIEWS ROUTINE CLINICAL HISTORY: trauma pain COMPARISON STUDY: 01/02/2017 FINDINGS: The bones soft tissues and hemidiaphragms are normal. The cardiomediastinal silhouette is normal. The lungs are clear. The pulmonary vasculature is normal. IMPRESSION: Negative chest. Electronically signed by: Jose Leonard M.D. 01/28/2017 1:17 PM Dictated Date/Time: 01/28/2017 1:16 PM LEFT HAND MIN 3 VIEWS ROUTINE CLINICAL HISTORY: trauma COMPARISON: None. DISCUSSION: Moderate degenerative changes throughout. No acute bony abnormality. Cortical margins are intact. There is no evidence for soft tissue swelling. IMPRESSION: Degenerative change. No acute process. Dorsal soft tissue edema Electronically signed by: Jose Leonard M.D. 01/28/2017 1:16 PM Dictated Date/Time: 01/28/2017 1:[address] CT DOSE: 1522.18 mGy.cm HISTORY: Trauma trauma TECHNIQUE: Multiaxial CT images of the head were performed without the use of intravenous contrast. Comparison: 01/10/2017 Findings: The paranasal sinuses and mastoid air cells are clear. The calvarium and skull base are intact. The ventricles and sulci are within normal limits. There is no mass, hematoma, midline shift, or acute infarct. Age-related chronic small vessel change as well as atrophy Impression: No acute intracranial abnormality. Chronic and age-related change. Electronically signed by: Jose Leonard M.D. 01/28/2017 1:00 PM Dictated Date/Time: 01/28/2017 12:[address] DOSE: HISTORY: Trauma trauma, left jaw TECHNIQUE: Multiaxial CT images of the maxillofacial region were performed and reformatted in the coronal plane without the use of contrast. COMPARISON: None. FINDINGS: The visualized cervical spine, skull base, pterygoid plates, nasal bones, lamina papyracea, orbital floors, mandible, and zygomatic arches are intact. No fractures. The orbits are unremarkable. IMPRESSION: No fractures within the maxillofacial region. Moderate degenerative change of the temporomandibular joints Electronically signed by: Jose Leonard M.D. 01/28/2017 2:39 PM Dictated Date/Time: 01/28/2017 2:36 PM ED Course 1152: The patient was evaluated in room C10. A complete history and physical exam was performed. 1532: The patient is aware of the results. Reexamined him with no changes. He will be discharged. Medical Decision Differential diagnoses include major intracranial, cervical, spinal, thoracic, abdominal, pelvic and neurologic injury. Fracture, contusion, sprain, strain, laceration, abrasions included as well. Patient denies any prodromal symptoms to suggest syncope or other etiology. Based on patient's description most likely mechanical fall. Discussed all results with patient and family. Discussed need for close follow-up with family doctor as a precaution. Discussed risks of a culture medic injury. I have a low suspicion for any additional occult trauma at this time. Discussed symptoms to watch and return for, patient and family at bedside verbalized understanding were agreeable with plan. Patient and related in the ER with a steady gait and was tolerating sips of by mouth prior to discharge. Vital signs stable throughout. Isolated elevated blood pressure likely in her as all others were more consistent with patient's normal range. Impression Primary Impression: Fall Additional Impressions: Head injury Contusion Laceration Scribe Attestation The scribe's documentation has been prepared under my direction and personally reviewed by me in its entirety. I confirm that the note above accurately reflects all work, treatment, procedures, and medical decision making performed by me. Departure Information Dispostion Home / Self-Care Referrals Drew Cheung D.O. (PCP) Forms HOME CARE DOCUMENTATION FORM, IMPORTANT VISIT INFORMATION Patient Instructions My [facility] Additional Instructions Please continue regular medications as prescribed. Please be careful to avoid any additional or repeat injuries. You may use Tylenol as needed for pain. Please follow-up with your family doctor to make sure that your injuries are healing. If you have any worsening headaches, vision changes, dizziness, trouble walking, numbness or tingling, develop chest pain, abdominal pain, trouble breathing, or any other new concerns, please return the emergency room. Problem Qualifiers Primary Impression: Fall Encounter type: initial encounter Qualified Codes: W19.XXXA - Unspecified fall, initial encounter Additional Impressions: Head injury Encounter type: initial encounter Qualified Codes: S09.90XA - Unspecified injury of head, initial encounter Contusion Encounter type: initial encounter Contusion area: hand Laterality: left Qualified Codes: S60.222A - Contusion of left hand, initial encounter
--- NOTE | 2017-01-28 13:01 | DIAGNOSTIC IMAGING REPORT ---
HEAD CT NONCONTRAST CT DOSE: 1522.18 mGy.cm HISTORY: Trauma trauma TECHNIQUE: Multiaxial CT images of the head were performed without the use of intravenous contrast. Comparison: 01/10/2017 Findings: The paranasal sinuses and mastoid air cells are clear. The calvarium and skull base are intact. The ventricles and sulci are within normal limits. There is no mass, hematoma, midline shift, or acute infarct. Age-related chronic small vessel change as well as atrophy Impression: No acute intracranial abnormality. Chronic and age-related change. Electronically signed by: Jose Leonard M.D. 01/28/2017 1:00 PM Dictated Date/Time: 01/28/2017 12:58 PM
--- NOTE | 2017-01-28 13:17 | DIAGNOSTIC IMAGING REPORT ---
LEFT HAND MIN 3 VIEWS ROUTINE CLINICAL HISTORY: trauma COMPARISON: None. DISCUSSION: Moderate degenerative changes throughout. No acute bony abnormality. Cortical margins are intact. There is no evidence for soft tissue swelling. IMPRESSION: Degenerative change. No acute process. Dorsal soft tissue edema Electronically signed by: Jose Leonard M.D. 01/28/2017 1:16 PM Dictated Date/Time: 01/28/2017 1:15 PM
--- NOTE | 2017-01-28 13:18 | DIAGNOSTIC IMAGING REPORT ---
CHEST 2 VIEWS ROUTINE CLINICAL HISTORY: trauma pain COMPARISON STUDY: 01/02/2017 FINDINGS: The bones soft tissues and hemidiaphragms are normal. The cardiomediastinal silhouette is normal. The lungs are clear. The pulmonary vasculature is normal. IMPRESSION: Negative chest. Electronically signed by: Jose Leonard M.D. 01/28/2017 1:17 PM Dictated Date/Time: 01/28/2017 1:16 PM
--- NOTE | 2017-01-28 14:41 | DIAGNOSTIC IMAGING REPORT ---
MAXILLOFACIAL CT CT DOSE: HISTORY: Trauma trauma, left jaw TECHNIQUE: Multiaxial CT images of the maxillofacial region were performed and reformatted in the coronal plane without the use of contrast. COMPARISON: None. FINDINGS: The visualized cervical spine, skull base, pterygoid plates, nasal bones, lamina papyracea, orbital floors, mandible, and zygomatic arches are intact. No fractures. The orbits are unremarkable. IMPRESSION: No fractures within the maxillofacial region. Moderate degenerative change of the temporomandibular joints Electronically signed by: Jose Leonard M.D. 01/28/2017 2:39 PM Dictated Date/Time: 01/28/2017 2:36 PM
--- NOTE | 2017-01-28 15:07 | DIAGNOSTIC IMAGING REPORT ---
CERVICAL SPINE CT CT DOSE: HISTORY: Trauma trauma TECHNIQUE: Multiaxial CT images of the cervical spine were performed and reformatted in the sagittal and coronal plane without the use of contrast. COMPARISON: None. FINDINGS: No fractures. No subluxation. Prevertebral soft tissues and the C1-C2 interval are intact. No pneumothorax. IMPRESSION: No fractures within the cervical spine. Electronically signed by: Jose Leonard M.D. 01/28/2017 3:06 PM Dictated Date/Time: 01/28/2017 3:05 PM
[2017-01-28 15:58] VITALS: BP 138/69; PULSE 62; O2SAT 97
[2017-02-01] MEDS ORDERED: ASPEC81 PO (15:25)
[2017-07-11] MEDS ORDERED: ASPEC81 PO (13:29)
[2017-07-11] MEDS ORDERED: ULT50X PO (13:29)
== END 2017-01-28 15:59 | disposition home or self-care (01) ==
LOC: C.EDB 10:55 → C.EDC 15:59
DX: S60.222A Contusion of left hand, initial encounter (principal); S00.83XA Contusion of other part of head, initial encounter; S01.112A Laceration without foreign body of left eyelid and periocular area, initial encounter; W18.09XA Striking against other object with subsequent fall, initial encounter; Y92.008 Other place in unspecified non-institutional (private) residence as the place of occurrence of the external cause; Z79.01 Long term (current) use of anticoagulants; Z79.82 Long term (current) use of aspirin; K50.90 Crohn's disease, unspecified, without complications; I10 Essential (primary) hypertension; Z87.442 Personal history of urinary calculi; I25.2 Old myocardial infarction; G20 Parkinson's disease; Z85.46 Personal history of malignant neoplasm of prostate; Z80.9 Family history of malignant neoplasm, unspecified; Z82.49 Family history of ischemic heart disease and other diseases of the circulatory system; Z84.1 Family history of disorders of kidney and ureter; Z87.891 Personal history of nicotine dependence; Z79.899 Other long term (current) drug therapy

== ENCOUNTER 2017-01-30 13:18 | Inpatient (IN) | payer OTHER ==
[~2017-01-30] VITALS: Ht 180.3 cm; Wt 56.6 kg
[~2017-01-30 13:18] MED LIST changes: +ASPI81TA28 PO
[2017-01-30] MEDS ORDERED: CLOP1TAB5 PO (13:38)
--- NOTE | 2017-01-30 13:50 | EMERGENCY ROOM VISIT NOTE ---
History Report prepared by Dominic: Shankar Ocampo Under the Supervision of: Dr. Krystle Lassiter M.D. First contact with patient: 13:28 Chief Complaint: NAUSEA Stated Complaint: NAUSEA History of Present Illness The patient is an 86 year old male who presents to the Emergency Room with complaints of intermittent nausea beginning several hours prior to arrival. As per family, the patient was evaluated in the ED for a fall two days ago. She state the patient had a CT of his head and an x-ray of his left hand during the evaluation. The patient was told to return if he experienced nausea. Family states the patient was on Coumadin and was then changed to Plavix. He was on Coumadin for his atrial fibrillation. The family notes the patient had a heart incident or a heart attack three weeks ago. As per patient, he experienced nausea this morning when he got out of bed, a few hours later, and at lunch. The family notes the patient has been experiencing diarrhea, but the patient states he has always experienced loose bowels due to his Crohn's. The patient denies a headache, vomiting, and bloody or black stool. Source of History: patient Onset: several hours CQ DEVELOPER Position: other (global) Quality: other (nausea) Timing: intermittent Associated Symptoms: + nausea, No headache, No hematochezia, No melena, No vomiting Review of Systems See HPI for pertinent positives & negatives. A total of 10 systems reviewed and were otherwise negative. Past Medical & Surgical Medical Problems: (1) Acute on chronic renal failure (2) Crohns disease (3) GI bleeding recent [place] (4) Heart disease (5) Hypertension (6) Kidney stones (7) Left ureteral calculus (8) Myocardial infarction acute (9) Parkinsons disease (10) Prostate cancer (11) Weight loss Family History Cancer Heart disease Hypertension Kidney stones Social History Smoking Status: Never Smoker Alcohol Use: none Marital Status: Housing Status: lives alone Occupation Status: retired Current/Historical Medications Scheduled Aspirin (Aspirin EC Low Dose), 81 MG PO DAILY Carbidopa/Levodopa (Sinemet 25MG/100MG), 1 TAB PO QID Cholecalciferol (Vitamin D3), 2,000 UNITS PO DAILY Clopidogrel Bisulfate (Plavix), 75 MG PO DAILY@NOON Cyanocobalamin (Cyanocobalamin), 1 ML SQ MONTHLY Metoprolol Succinate (Toprol Xl), 12.5 MG PO DAILY Ondasetron Odt (Zofran Odt), 4 MG SL Q6H Pantoprazole (Protonix), 40 MG PO BID Paroxetine HCl (Paroxetine), 20 MG PO DAILY Allergies Coded Allergies: Amoxicillin (Verified Allergy, Unknown, ., 01/28/17) Propoxyphene (Verified Allergy, Unknown, DARVON, 01/28/17) Physical Exam Vital Signs Date Time Temp Pulse Resp B/P Pulse Ox O2 Delivery O2 Flow Rate FiO2 01/30/17 16:48 66 20 99 01/30/17 16:18 58 17 100 01/30/17 16:02 57 16 152/69 99 Room Air 01/30/17 16:02 57 01/30/17 14:33 54 16 152/69 99 Room Air 01/30/17 14:32 152/69 01/30/17 13:24 36.6 60 18 101/56 95 Room Air Physical Exam Vital signs reviewed. General: Well-appearing male, in no significant distress. He smells incontinent of stool. HEENT: Significant ecchymosis to the left side of the face, neck, and hand that appears to be well-healing. No scleral icterus, PERRLA, neck supple. Cardiovascular: Regular rate and rhythm, no extra sounds. Pulmonary: Clear to auscultation bilaterally, normal work of breathing. Abdomen: Soft, nontender, nondistended, positive bowel sounds. Rectal: Grossly guaiac positive. Musculoskeletal: Atraumatic, no peripheral edema. Neurologic: Patient awake alert and oriented x 3, full strength in all 4 extremities. Cranial nerves 2 through 12 grossly intact. Skin: Warm, dry, no rash Medical Decision & Procedures ER Provider Diagnostic Interpretation: Radiology results as stated below per my review and radiologist interpretation: CHEST ONE VIEW PORTABLE CLINICAL HISTORY: Nausea. Gastrointestinal hemorrhage. COMPARISON STUDY: 01/28/2017 FINDINGS: Postsurgical changes are present on the right. There is mild superior hilar retraction. There is mild chronic interstitial thickening. There is no acute rectal consolidation. There is no failure. There are no pleural effusions.[ IMPRESSION: No active disease in the chest. Electronically signed by: Caden Schmitt M.D. 01/30/2017 4:[address] HEAD WITHOUT CONTRAST (CT) CLINICAL HISTORY: Head pain. Nausea. Closed head injury. Fall. COMPARISON STUDY: 01/28/2017 TECHNIQUE: Axial CT of the brain is performed from the vertex to the skull base. IV contrast was not administered for this examination. CT DOSE: 765.09 mGycm FINDINGS: No intra or extra-axial mass lesions are visualized. There is no CT evidence of acute cortical infarction. There is no evidence of midline shift. There is no acute hemorrhage. No calvarial fractures are visualized. There are moderately extensive white matter hypodensities likely on a small vessel basis. There is no evidence of pathologic ventricular dilatation. There is no evidence of acute sinusitis IMPRESSION: No acute intracranial findings Electronically signed by: Caden Schmitt M.D. 01/30/2017 2:10 PM Laboratory Results Test 01/30/17 15:56 Immature Granulocyte % (Auto) 0.3 % White Blood Count 9.39 K/uL (4.8-10.8) Red Blood Count 3.43 M/uL (4.7-6.1) Hemoglobin 10.7 g/dL (14.0-18.0) Hematocrit 32.5 % (42-52) Mean Corpuscular Volume 94.8 fL (80-100) Mean Corpuscular Hemoglobin 31.2 pg (25-34) Mean Corpuscular Hemoglobin Concent 32.9 g/dl (32-36) Platelet Count 225 K/uL (130-400) Mean Platelet Volume 9.9 fL (7.4-10.4) Neutrophils (%) (Auto) 79.5 % Lymphocytes (%) (Auto) 10.2 % Monocytes (%) (Auto) 7.6 % Eosinophils (%) (Auto) 2.1 % Basophils (%) (Auto) 0.3 % Neutrophils # (Auto) 7.46 K/uL (1.4-6.5) Lymphocytes # (Auto) 0.96 K/uL (1.2-3.4) Monocytes # (Auto) 0.71 K/uL (0.11-0.59) Eosinophils # (Auto) 0.20 K/uL (0-0.5) Basophils # (Auto) 0.03 K/uL (0-0.2) Immature Granulocyte # (Auto) 0.03 K/uL (0.00-0.02) Prothrombin Time 10.6 SECONDS (9.0-12.0) Prothromb Time International Ratio 1.0 (0.9-1.1) Activated Partial Thromboplast Time 24.1 SECONDS (21.0-31.0) Partial Thromboplastin Ratio 0.9 Total Bilirubin 0.4 mg/dl (0.2-1) Direct Bilirubin 0.1 mg/dl (0-0.2) Aspartate Amino Transf (AST/SGOT) 14 U/L (15-37) Alanine Aminotransferase (ALT/SGPT) 8 U/L (12-78) Alkaline Phosphatase 71 U/L (45-117) Total Creatine Kinase 70 U/L (39-308) Creatine Kinase MB 2.0 ng/ml (0.5-3.6) Creatine Kinase MB Ratio 2.9 (0-3.0) Troponin I 0.018 ng/ml (0-0.045) Total Protein 6.4 gm/dl (6.4-8.2) Albumin 3.3 gm/dl (3.4-5.0) Lipase 209 U/L (73-393) Laboratory results per my review. ECG Indication: other (nausea) Rate (beats per minute): 57 Rhythm: sinus bradycardia Findings: no acute ischemic change, no ectopy ED Course 1340: Past medical records reviewed. The patient was evaluated in room C8. A complete history and physical examination was performed. 1615: Ordered Pantoprazole Sodium 80 mg/ Dextrose 120 ml @ 400 mls/hr IV. 1725: I spoke to LAMBERT Gasca (Hospitalist) about the patient's case, and he will follow the patient for further evaluation. Medical Decision Differential Diagnoses: Intracranial hemorrhage, intracranial mass, migraine headache, tension headache , sinusitis, meningitis This patient was evaluated and appeared to be in no significant distress. Physical examination is fairly unrevealing. The patient has no complaints except for nausea that has subsided. Due to the amount of ecchymosis seen on exam and the patient's recent head injury, CT scan of the head was performed and is negative for acute intracranial pathology. The patient was incontinent of stool. On my reevaluation he continued to complain of some nausea. A rectal exam was performed and is guaiac positive. Patient was recently anticoagulated however this was stopped after his fall. Due to his advanced elderly state, GI bleed and recent falls, he will be evaluated by the hospitalist service for further management. IV Protonix was initiated in the department, the patient family are aware of the plan and agree. Consults Time Called: 1710 Consulting Physician: LAMBERT Gasca (Hospitalist) Returned Call: 1725 I spoke to LAMBERT Gasca (Hospitalist) about the patient's case, and he will follow the patient for further evaluation. Impression Primary Impression: Acute GI bleeding Additional Impressions: Nausea Postconcussion syndrome Scribe Attestation The scribe's documentation has been prepared under my direction and personally reviewed by me in its entirety. I confirm that the note above accurately reflects all work, treatment, procedures, and medical decision making performed by me. Departure Information Dispostion Being Evaluated By Hospitalist (LAMBERT Gasca (Hospitalist)) Prescriptions Aspirin (Aspirin EC Low Dose) 81 Mg Ectab 81 MG PO DAILY, #30 2 Refills Prov: Jere Adorno MD 02/01/17 Pantoprazole (Protonix) 40 Mg Tab 40 MG PO BID for 30 Days, #60 TAB Prov: Nasrin Carter PA-C 02/01/17 Ondasetron Odt (ZOFRAN ODT) 4 Mg Tab 4 MG SL Q6H for Nausea, #10 TAB Prov: Krystle Lassiter M.D. 01/30/17 Referrals No Doctor, Assigned (PCP) Problem Qualifiers
--- NOTE | 2017-01-30 14:11 | DIAGNOSTIC IMAGING REPORT ---
CT HEAD WITHOUT CONTRAST (CT) CLINICAL HISTORY: Head pain. Nausea. Closed head injury. Fall. COMPARISON STUDY: 01/28/2017 TECHNIQUE: Axial CT of the brain is performed from the vertex to the skull base. IV contrast was not administered for this examination. CT DOSE: 765.09 mGycm FINDINGS: No intra or extra-axial mass lesions are visualized. There is no CT evidence of acute cortical infarction. There is no evidence of midline shift. There is no acute hemorrhage. No calvarial fractures are visualized. There are moderately extensive white matter hypodensities likely on a small vessel basis. There is no evidence of pathologic ventricular dilatation. There is no evidence of acute sinusitis IMPRESSION: No acute intracranial findings Electronically signed by: Caden Schmitt M.D. 01/30/2017 2:10 PM Dictated Date/Time: 01/30/2017 2:08 PM
[2017-01-30] MEDS ORDERED: ONDA4TAB10 SL (15:23)
[2017-01-30 16:15] LABS: BASO % 0.3 %; BASO ABS # 0.03 K/uL (0-0.2); COMPLETE YES; EOS % 2.1 %; HEMATOCRIT 32.5 % (42-52); IG% 0.3 %; LYMPH % 10.2 %; LYMPH ABS # 0.96 K/uL (1.2-3.4); MEAN CELL VOLUME 94.8 fL (80-100); MEAN CORPUSCULAR HEMOGLOBIN 31.2 pg (25-34); MEAN CORPUSCULAR HGB CONC 32.9 g/dl (32-36); MEAN PLATELET VOLUME 9.9 fL (7.4-10.4); MONO % 7.6 %; NEUT % 79.5 %; PLATELET COUNT 225 K/uL (130-400); RED BLOOD COUNT 3.43 M/uL (4.7-6.1); WHITE BLOOD COUNT 9.39 K/uL (4.8-10.8)
[2017-01-30] MEDS ORDERED: PANTOprazole INJ 80 MG in DEXTROSE 5% 100ML 100 ML IV SCH (16:15)
[2017-01-30 16:26] LABS: BUN/CREATININE RATIO 14.5 (10-20); CALCIUM 8.2 mg/dl (8.5-10.1); CREATININE 2.3 mg/dl (0.60-1.40); POTASSIUM 4.8 mmol/L (3.5-5.1)
[2017-01-30 16:29] LABS: PARTIAL THROMBOPLASTIN RATIO 0.9; PROTHROMBIN TIME (PATIENT) 10.6 SECONDS (9.0-12.0)
[2017-01-30 16:31] LABS: CKMB/CK RATIO 2.9 (0-3.0)
--- NOTE | 2017-01-30 16:40 | DIAGNOSTIC IMAGING REPORT ---
CHEST ONE VIEW PORTABLE CLINICAL HISTORY: Nausea. Gastrointestinal hemorrhage. COMPARISON STUDY: 01/28/2017 FINDINGS: Postsurgical changes are present on the right. There is mild superior hilar retraction. There is mild chronic interstitial thickening. There is no acute rectal consolidation. There is no failure. There are no pleural effusions.[ IMPRESSION: No active disease in the chest. Electronically signed by: Caden Schmitt M.D. 01/30/2017 4:38 PM Dictated Date/Time: 01/30/2017 4:35 PM
[2017-01-30] MEDS ORDERED: ONDANSETRON INJ 2 MG/ML 2 ML VIAL IV PRN (18:00)
[2017-01-30] MEDS ORDERED: ALUMINUM/MAGNESIUM/SIMETH (MAALOX MAX) 30 ML UDC PO PRN (18:00)
[2017-01-30] MEDS ORDERED: ACETAMINOPHEN 325 MG TAB PO PRN (18:00)
--- NOTE | 2017-01-30 18:24 | Progress Note ---
Progress Note Date of Service January 30, 2017. Progress Note GI bleeding recent [place], [id number]
[2017-01-30] MEDS ORDERED: HydrALAZINE HCL 20 MG/ML VIAL IV. PRN (18:30)
[2017-01-30] MEDS ORDERED: PANTOprazole INJ 80 MG in DEXTROSE 5% 100ML IV SCH (18:30)
[2017-01-30] MEDS: PANTOprazole INJ 40 MG in DEXTROSE 5% 100ML 100 ML IV SCH (19:32)
--- NOTE | 2017-01-30 19:36 | HISTORY & PHYSICAL EXAMINATION ---
DATE OF ADMISSION: 01/30/2017 This is an inpatient admission, 31 minutes. CHIEF COMPLAINT: Nauseation and diarrhea in this morning. HISTORY OF PRESENT ILLNESS: The patient is an 86-year-old white male, with a recent history of acute DC, who was admitted to the hospital 3 weeks ago , coming to the Emergency Room because of feeling nauseation. He reports has had evaluation in the Emergency Room 2 days ago because of a fall; submandibular area was bluish and left hand was bluish. The family sent him in again today because of intermittent nauseation. The family is concerned about bleeding. In the Emergency Room, a head CT done and was not remarkable. The patient was on Coumadin for atrial fibrillation. Coumadin was discontinued on the last discharge. The patient has been on Plavix for heart disease, it was upgraded from Aspirin to Plavix per family reported. The acute DC was about 3 weeks ago. The patient was experiencing diarrhea x1, but no abdominal pain. He reported that he has experienced loose stools due to Crohn's disease which is not unusual for him. The patient denied headache or vomiting. No blood in the stools or black stools. In the Emergency Room, head CT was not remarkable. However, ED physician found positive blood on the rectal exam. When I interviewed the patient he is awake, alert, orientated, conversational and follows all commands. No acute distress. He confirmed the above information. He denied fever or chills. He denied generalized weakness. He denied cough or sputum. He denied wheezing. There is no nausea or vomiting now. No diarrhea now. He denied dysuria, urgency or frequencies. He denied facial droop, slurry speeches or local weakness. He denied skin rashes. He is not homicidal or suicidal. PAST MEDICAL HISTORY: 1. Like I mentioned above include; acute on chronic kidney disease, Crohn's disease, heart disease and 3 weeks ago a possible acute DC. 2. Hypertension. 3. Kidney stones. 4. Left ureter calculus. 5. Parkinson's disease. 6. Prostate cancer. FAMILY HISTORY: Includes; cancer, heart disease, hypertension and kidney disease. SOCIAL HISTORY: Never smoked. Denied alcohol abuse disorder, denied illicit drug abuse. The patient is retired and lives alone. MEDICATIONS: Prior to this ED visit include; Sinemet 25/100 one tab p.o. q.i.d., vitamin D3 2000 international units p.o. daily, Plavix 75 mg p.o. daily, vitamin B12 1 mg subQ monthly, metoprolol 12.5 mg p.o. daily, Zofran 4 mg p.o. q. 6 hours, Protonix 40 mg p.o. daily and paroxetine 20 mg p.o. daily. ALLERGIES: TO PENICILLIN PHYSICAL EXAMINATION: VITAL SIGNS: Temperature 36.6, pulse 66, respiratory rate 20, blood pressure 152/69 and pulse ox was 99% on room air. GENERAL: The patient is a white male, who looks frail and weak, but conversational, in no acute distress. HEAD: Normocephalic. EYES: Pupils are equal, round and responds to light. EARS: Normal. NOSE: Normal. NECK: Supple. HEART: Regular rhythm, S1, S2. No murmur. LUNGS: Clear to auscultation. No wheezing, rhonchi or crackles. ABDOMEN: Soft and nontender. Bowel sounds were positive. RECTAL: Exam per ED physician shows grossly hem positive positive. MUSCULOSKELETAL: No peripheral edema. Pulse was positive. NEUROLOGIC: Cranial nerves II-XII are intact. There were no local deficits. SKIN: Bluish on the anterior submandibular area and also the left hand. LABORATORY STUDIES: WBC 9.3, hemoglobin 10 and platelets 225. PT/INR was 10/1. Sodium 143, potassium 4.9, BUN 33 and creatinine 2.3. Calcium was 8.2. Total bilirubin was 0.4. AST and ALT were within normal limits. Troponin was negative. Lipase was 209. IMAGING STUDIES: Today's chest x-ray; he has no acute disease in the chest. Head CT; he has no acute disease. ASSESSMENT AND PLAN: An 86-year-old white male, with the problems as below: 1. Rectal bleeding with heme positive in the digital rectal examination, associated with nauseation. 2. Soft stool, one time diarrhea with history of Crohn's disease. 3. Recent myocardial infarction, on Plavix . 4. History of atrial fibrillation, Coumadin was off. 5. Parkinson's disease. 6. GERD. 7. Chronic kidney disease, in baseline. The patient's dry yard worker is Dr. Kelley. I will request both dry yard worker and GI consult. Per documentation, on previous admission, there was a family meeting carried out. The primary goal was to go home and remain independent as long as possible. Because the patient was very possible to be suspicious to continue to decline, there was discussion about hospice care regarding his multiple medical conditions, advanced age, advancing Parkinson's disease, possible life expectancy is less than 6 months and the patient being a DNR. Also Bbased on the above mentioned condition, Coumadin was discontinued for stroke prevention. Now the patient is coming with new condition with GI bleeding. I will continue Protonix drip. GI consult and n.p.o. I discussed with the patient and family regarding general risks and benefits of continuing Plavix for the recent acute DC and have to hold it for now because of GI bleeding. This is difficult to manage. Therefore, we need to have more discussions with the primary care team, with dry yard worker and with his family. I did request Dr. Aceves to see the patient in case the patient and family would like to have some more procedures to be done such as colonoscopy or EGD. GI prophylaxis is covered by Protonix drip. DVT prophylaxis is covered by SCD. The patient is a DO NOT RESUSCITATE. We discussed with patient and family about the care of plan. I answered all their questions. KAM
[2017-01-30 19:47] VITALS: BP 122/63; PULSE 101; TEMP 36.8; O2SAT 98; Ht 180.3 cm; Wt 56.6 kg
[2017-01-30] MEDS: CARBIDOPA/LEVODOPA 25/100MG TAB PO SCH (20:25)
[2017-01-30] MEDS: NSS + 20MEQ KCL 1000ML 1,000 ML IV SCH (20:26)
[2017-01-30 23:22] VITALS: BP 121/65; PULSE 57; TEMP 36.3; O2SAT 99
[2017-01-31] MEDS: PANTOprazole INJ 40 MG in DEXTROSE 5% 100ML 100 ML IV SCH ×2 (00:58→04:04)
[2017-01-31 04:16] VITALS: BP 132/66; PULSE 57; TEMP 36.4; O2SAT 98
[2017-01-31] MEDS: NSS + 20MEQ KCL 1000ML 1,000 ML IV SCH ×2 (06:09→16:13)
[2017-01-31 07:26] VITALS: BP 144/75; PULSE 57; TEMP 36.8; O2SAT 98
--- NOTE | 2017-01-31 08:20 | Hospitalist Progress Note ---
Hospitalist Progress Note Date of Service January 31, 2017. (Nasrin Carter PA-C) Subjective Pt evaluation today including: conversation w/ patient, conversation w/ family , physical exam, chart review, lab review, review of studies Pain: None PO Intake: NPO Voiding: no voiding problems The patient was seen and examined this morning. Pt reports he is doing well currently without any acute complaints. Pt reports "I run out of gas quickly" when asked how he normally does at home with daily activities. He denies feeling acutely short of breath on exertion, but pt gets fatigued easily. He notes a history of Crohns disease but reports he is usually constipated, he has not had a flare for some time now, denies any visible blood in stool, dark tarry stools, abd pain. He is from home, lives alone, but goes to [facility] for meals daily. Constitutional: No chills, No fever, No sweats Eyes: No diplopia, No redness ENT: No nasal symptoms, No trouble swallowing Respiratory: No cough, No shortness of breath Cardiovascular: No chest pain, No palpitations Abdomen: No constipation, No diarrhea, No nausea, No pain, No vomiting Musculoskeletal: No joint pain, No muscle pain Neurologic: + problem reported (s/p fall ~3 days ago), No numbness/tingling , No weakness Skin: No itch, No rash (Nasrin Carter, CHRISSY) Objective Vital Signs Date Time Temp Pulse Resp B/P Pulse Ox O2 Delivery O2 Flow Rate FiO2 01/31/17 07:26 36.8 57 18 144/75 98 Room Air 01/31/17 04:16 36.4 57 17 132/66 98 Room Air 01/31/17 04:00 Room Air 01/30/17 23:59 Room Air 01/30/17 23:22 36.3 57 18 121/65 99 Room Air 01/30/17 19:47 36.8 101 18 122/63 98 Room Air 01/30/17 18:50 36.6 59 20 147/65 99 01/30/17 18:46 59 20 147/65 99 Room Air 01/30/17 16:48 66 20 99 01/30/17 16:18 58 17 100 01/30/17 16:02 57 16 152/69 99 Room Air 01/30/17 16:02 57 01/30/17 14:33 54 16 152/69 99 Room Air 01/30/17 14:32 152/69 01/30/17 13:24 36.6 60 18 101/56 95 Room Air (Nasrin Carter PA-C) Physical Exam General Appearance: WD/WN, no apparent distress, + thin, + pertinent finding (+ ecchymotic lesion over chin and left submental region) Eyes: PERRL, EOMI ENT: hearing grossly normal, pharynx normal Neck: supple, no JVD Respiratory/Chest: lungs clear, no respiratory distress, no accessory muscle use Cardiovascular: regular rate, rhythm, no murmur Abdomen: normal bowel sounds, non tender, soft Extremities: no pedal edema, no calf tenderness, + pertinent finding (+left hand and wrist ecchymotic s/p fall ) (Nasrin Carter PA-C) Laboratory Results Last 24 Hours Test 01/30/17 15:56 White Blood Count 9.39 K/uL Red Blood Count 3.43 M/uL Hemoglobin 10.7 g/dL Hematocrit 32.5 % Mean Corpuscular Volume 94.8 fL Mean Corpuscular Hemoglobin 31.2 pg Mean Corpuscular Hemoglobin Concent 32.9 g/dl Platelet Count 225 K/uL Mean Platelet Volume 9.9 fL Neutrophils (%) (Auto) 79.5 % Lymphocytes (%) (Auto) 10.2 % Monocytes (%) (Auto) 7.6 % Eosinophils (%) (Auto) 2.1 % Basophils (%) (Auto) 0.3 % Neutrophils # (Auto) 7.46 K/uL Lymphocytes # (Auto) 0.96 K/uL Monocytes # (Auto) 0.71 K/uL Eosinophils # (Auto) 0.20 K/uL Basophils # (Auto) 0.03 K/uL RDW Standard Deviation 49.5 fL RDW Coefficient of Variation 14.4 % Immature Granulocyte % (Auto) 0.3 % Immature Granulocyte # (Auto) 0.03 K/uL Prothrombin Time 10.6 SECONDS Prothromb Time International Ratio 1.0 Activated Partial Thromboplast Time 24.1 SECONDS Partial Thromboplastin Ratio 0.9 Sodium Level 143 mmol/L Potassium Level 4.8 mmol/L Chloride Level 109 mmol/L Carbon Dioxide Level 27 mmol/L Anion Gap 7.0 mmol/L Blood Urea Nitrogen 33 mg/dl Creatinine 2.30 mg/dl Est Creatinine Clear Calc Drug Dose 18.3 ml/min Estimated GFR () 28.5 Estimated GFR (Non- 24.6 BUN/Creatinine Ratio 14.5 Random Glucose 85 mg/dl Calcium Level 8.2 mg/dl Total Bilirubin 0.4 mg/dl Direct Bilirubin 0.1 mg/dl Aspartate Amino Transf (AST/SGOT) 14 U/L Alanine Aminotransferase (ALT/SGPT) 8 U/L Alkaline Phosphatase 71 U/L Total Creatine Kinase 70 U/L Creatine Kinase MB 2.0 ng/ml Creatine Kinase MB Ratio 2.9 Troponin I 0.018 ng/ml Total Protein 6.4 gm/dl Albumin 3.3 gm/dl Lipase 209 U/L (Nasrin Carter, CHRISSY) Assessment and Plan This is an 86 yo M with PMHx of atrial fibrillation on metoprolol, was taken off coumadin during last admission ~3 wks ago when he was here for acute ME. He now presents with increased nausea and fall, where family was initally concerned for bleeding. GI bleed - GI was consulted at time of admission, currently on a protonix gtt, can transition to a high IV BID dosing. - Hgb was 10.7, will recheck this morning along with other iron studies - Pt was placed on dual therapy asa and plavix during last admission, Cardiology recommending to continue ASA and plavix at this time unless acute bleed is identified. - Further discussion will need to be held with family regarding antiplatelet therapy and risk of bleed/clotting. There was documented discussion about possible hospice during last admission, so may need to revisit possibility and discuss goals with the patient and family Crohns disease - Checking CRP to make sure not in acute flare, possible that heme positive stools is from this CKD stage III - Baseline of 1.5-1.9 Atrial fibrillation - Cont metoprolol succ 12.5 mg daily Hx inferior ME on 01/05/17 - At that time was taken off coumadin. - Follows with Dr. Kelley as his call center analyst- have asked for cards input on anticoagulation with GI bleed as above. -appreciate recs - will continue ASA and plavix dual therapy. Monitor H&H. Parkinsons Disease: -Continue sinemet 25/100 QID and Paxil GERD- stable DVT ppx: Teds, SCDS, no chemical anticoagulation with GI bleed. Disposition: From home, has meals at [facility], PT/OT consults (Nasrin Carter PA-C) Attending Attestation: Pt seen/examined, chart reviewed, and care plan d/w LETICIA Carter. I agree w/ the cosby components of her documentation. Pt is very poor historian & thus history taken from family at bedside. They report he has had 20 pound weight loss over the last 6 months. Daily diarrhea, typically after meals, for "months." Often going 3+ times a day. No abd pain. VSS no fever gen - parkinsonism features mouth - MMM heart - RRR lungs - CTA b/l abd - soft, NT, ND, BS+, no HSM ext - no edema skin - ecchymoses over left chin and left hand/wrist labs - hb 10.2 Cr 2.2 u/a nl A/P: severe protein calorie malnutrition nausea, dry heaves - acute but resolved chronic diarrhea weight loss falls PD recent acute ME PAF CKD stage 4 CT abd/pelvis 06/2016 with gallstones, renal stones, etc repeat CT to be obtained to exclude developing cholecystitis, obstructive renal stone, recurrence of prostate ca, etc re-eval once CT is done d/c fluids later today patient overall has declined and living alone is not a good option recommend he live w/ family or in assisted living Jere Adorno MD (Jere Adorno MD)
[2017-01-31] MEDS: CARBIDOPA/LEVODOPA 25/100MG TAB PO SCH ×4 (09:04→20:59)
[2017-01-31] MEDS: METOPROLOL SUCC 25MG EXT REL TAB PO SCH (09:04)
[2017-01-31] MEDS: PAROXETINE 20 MG TAB PO SCH (09:04)
[2017-01-31 09:35] LABS: HEMATOCRIT 32.3 % (42-52); MEAN CELL VOLUME 94.7 fL (80-100); MEAN CORPUSCULAR HEMOGLOBIN 29.9 pg (25-34); MEAN CORPUSCULAR HGB CONC 31.6 g/dl (32-36); MEAN PLATELET VOLUME 9.7 fL (7.4-10.4); PLATELET COUNT 229 K/uL (130-400); RED BLOOD COUNT 3.41 M/uL (4.7-6.1); WHITE BLOOD COUNT 7.43 K/uL (4.8-10.8)
[2017-01-31 10:19] LABS: BLOOD UREA NITROGEN 30 mg/dl (7-18); BUN/CREATININE RATIO 13.7 (10-20); CALCIUM 8.2 mg/dl (8.5-10.1); CARBON DIOXIDE 25 mmol/L (21-32); CHLORIDE 111 mmol/L (98-107); GLUCOSE 84 mg/dl (70-99); POTASSIUM 4.8 mmol/L (3.5-5.1); SODIUM 143 mmol/L (136-145)
[2017-01-31 10:24] LABS: C-REACTIVE PROTEIN < 0.29 mg/dl (0-0.29); FERRITIN 179.7 ng/ml (8.0-388.0); TOTAL IRON BINDING CAPACITY 251 mcg/dl (250-450)
--- NOTE | 2017-01-31 10:39 | Clinical Documentation Query ---
CLINICAL DOCUMENTATION QUERY Dr. JARAMILLO In your clinical opinion is this patient being managed for: ( ) bleeding disorder due to dual anticoagulation therapy ( ) Other explanation of clinical findings (Please Explain) ( ) Unable to determine (Please Define) ( ) Need to Discuss ( ) Not Agree The medical record reflects the following clinical findings, treatment, and risk factors. Clinical Indicators: 86 yo male presenting with nausea. Found to have heme+ stools. Pt had recently been transitioned from coumadin (for A fib) to ASA and plavix (for acute NC) Treatment: hold ASA and plavix, GI consult, cardiology consult, IV protonix, follow CBC Risk Factors: age, plavix and ASA therapy Please clarify and document your clinical opinion in the progress notes and discharge summary. Terms such as "probable", "suspected", "likely", "questionable", "possible", or "still to be ruled out" are acceptable. IF IN AGREEMENT, YOU MUST DOCUMENT ABOVE DIAGNOSTIC STATEMENT IN DAILY PROGRESS NOTES AND DISCHARGE SUMMARY. This document is not part of the patient's record. Thank You, Frannie Barrera, TYSHAWN [phone]
--- NOTE | 2017-01-31 11:03 | Gastrointestinal Consultation ---
Gastrointestinal Consultation Date of Consultation: January 31, 2017 Attending Physician: Dr. Hernandez, consult from Dr. Patel Consulting Physician: Dr. Ra Owen Reason for Consultation: GI bleed History of Present Illness Patient is a 86 year old male patient of Dr. Fuller with a hx of CAD, S/P OH 3 weeks ago, who presented to the ED yesterday for fall, head trauma. GI is consulted for a GI bleed. The patient's son (with whom he has recently been living with) is with him in the hospital room. The patient is resting comfortably. He denies any epigastric pain/pressure, burning and also denies nausea, vomiting or diarrhea. The pt and family are unaware of any blood in the stools or black tarry stools. Apparently , a rectal exam in the ED was occult positive. His Hb was 9.9 on 01/10 and today is 10.7 which is actually slightly higher than his typical baseline of 10. BUN is 33, but there is also a compensatory rise in Cr at 2.3. He was on Coumadin until a few weeks ago and was placed on Plavix instead. As an OP, he is on Protonix 40mg daily and denies any NSAID use. Past Medical/Surgical History Medical Problems: (1) 9786 Status: Acute (2) 31529 Status: Acute (3) Acute coronary syndrome Status: Acute (4) Acute GI bleeding Status: Acute (5) Contusion Status: Acute (6) Dehydration Status: Acute (7) Dehydration Status: Acute (8) Diarrhea Status: Acute (9) Diarrhea Status: Acute (10) Fall Status: Acute (11) Head injury Status: Acute (12) Head injury, closed Status: Acute (13) Hematuria Status: Acute (14) Hematuria Status: Acute (15) Laceration Status: Acute (16) Nausea Status: Acute (17) Postconcussion syndrome Status: Acute Past Medical History: 1. CAD, recent OH 2. HTN 3. Kidney Stones 4. Apparently the pt has a hx of Crohn's but hasn't needed tx for this for many years. 5. Kidney stones 6. Parkinson's 7. Prostate Cancer Past Surgical History: 1. Endoscopy, "several years ago." 2. Prostate radiation seed implants. 3. Appendectomy, followed by removal of a portion of the bowel about 40 yrs ago. Poor healing suspected to be due to Crohn's (according to the son). Family History Cancer Heart disease Hypertension Kidney stones Social History Smoking Status: Current Some Day Smoker Alcohol Use: none Marital Status: Housing Status: lives alone Occupation Status: retired Allergies Coded Allergies: Amoxicillin (Verified Allergy, Unknown, ., 01/28/17) Propoxyphene (Verified Allergy, Unknown, DARVON, 01/28/17) Current Medications Home Meds and Scripts Medications Dose Route/Sig Max Daily Dose Days Date Category Dose Instructions Zofran Odt (Ondansetron HCl) 4 Mg Tab 4 Mg SL Q6H 01/30/17 Rx Plavix (Clopidogrel Bisulfate) 75 Mg Tab 75 Mg PO DAILY@NOON 01/30/17 Reported Protonix (Pantoprazole Sodium) 40 Mg Tab 40 Mg PO DAILY 01/10/17 Reported Toprol Xl (Metoprolol Succinate) 25 Mg Tabcr 12.5 Mg PO DAILY 01/10/17 Reported Vitamin D3 (Cholecalciferol) 2,000 Unit Tab 2,000 Units PO DAILY 01/02/17 Reported Paroxetine (Paroxetine HCl) 20 Mg Tab 20 Mg PO DAILY 01/02/17 Reported Cyanocobalamin 1,000 Mcg/Ml Inj 1 Ml SQ MONTHLY 01/02/17 Reported Sinemet 25MG/100MG (Carbidopa/Levodopa) Tab 1 Tab PO QID 01/02/17 Reported 0700, 1100, 1600, 1900 Review of Systems Constitutional: + weakness (and falls), No chills, No fever, No sweats, No weight loss Eyes: No eye pain, No redness ENT: No pain on swallowing, No sore throat, No trouble swallowing Respiratory: No cough, No dyspnea on exertion, No shortness of breath, No wheezing Cardiac: No chest pain, No edema, No palpitations Abdomen: + see HPI, No diarrhea, No nausea, No pain, No vomiting Neuro: No balance problems, No memory loss, No numbness/tingling, No vertigo, No weakness Psych: No anxiety, No depression symptoms, No insomnia Heme: No abnormal bleeding/bruising, No night sweats Endo: No excessive thirst, No excessive urination Skin: No itch, No jaundice, No new/changing skin lesions, No rash Physical Exam Date Time Temp Pulse Resp B/P Pulse Ox O2 Delivery O2 Flow Rate FiO2 01/31/17 08:00 Room Air 01/31/17 07:26 36.8 57 18 144/75 98 Room Air 01/31/17 04:16 36.4 57 17 132/66 98 Room Air 01/31/17 04:00 Room Air 01/30/17 23:59 Room Air 01/30/17 23:22 36.3 57 18 121/65 99 Room Air 01/30/17 19:47 36.8 101 18 122/63 98 Room Air 01/30/17 18:50 36.6 59 20 147/65 99 01/30/17 18:46 59 20 147/65 99 Room Air 01/30/17 16:48 66 20 99 01/30/17 16:18 58 17 100 01/30/17 16:02 57 16 152/69 99 Room Air 01/30/17 16:02 57 01/30/17 14:33 54 16 152/69 99 Room Air 01/30/17 14:32 152/69 01/30/17 13:24 36.6 60 18 101/56 95 Room Air General Appearance: no apparent distress Eyes: normal inspection, EOMI Neck: supple, no adenopathy, thyroid normal, no JVD Respiratory/Chest: chest non-tender, lungs clear, normal breath sounds, no accessory muscle use Cardiovascular: no JVD, no murmur, + irregularly irregular Abdomen: normal bowel sounds, non tender, soft, no organomegaly Extremities: normal inspection, no pedal edema, normal capillary refill Neurologic/Psych: alert, normal mood/affect, oriented x 3 Skin: normal color, no jaundice, warm/dry, no rash, + pertinent finding ( ecchymosis on the hand, face) Laboratory Results Last 24 Hours Test 01/30/17 15:56 01/31/17 09:09 White Blood Count 9.39 K/uL 7.43 K/uL Red Blood Count 3.43 M/uL 3.41 M/uL Hemoglobin 10.7 g/dL 10.2 g/dL Hematocrit 32.5 % 32.3 % Mean Corpuscular Volume 94.8 fL 94.7 fL Mean Corpuscular Hemoglobin 31.2 pg 29.9 pg Mean Corpuscular Hemoglobin Concent 32.9 g/dl 31.6 g/dl Platelet Count 225 K/uL 229 K/uL Mean Platelet Volume 9.9 fL 9.7 fL Neutrophils (%) (Auto) 79.5 % Lymphocytes (%) (Auto) 10.2 % Monocytes (%) (Auto) 7.6 % Eosinophils (%) (Auto) 2.1 % Basophils (%) (Auto) 0.3 % Neutrophils # (Auto) 7.46 K/uL Lymphocytes # (Auto) 0.96 K/uL Monocytes # (Auto) 0.71 K/uL Eosinophils # (Auto) 0.20 K/uL Basophils # (Auto) 0.03 K/uL RDW Standard Deviation 49.5 fL 49.0 fL RDW Coefficient of Variation 14.4 % 14.2 % Immature Granulocyte % (Auto) 0.3 % Immature Granulocyte # (Auto) 0.03 K/uL Prothrombin Time 10.6 SECONDS Prothromb Time International Ratio 1.0 Activated Partial Thromboplast Time 24.1 SECONDS Partial Thromboplastin Ratio 0.9 Sodium Level 143 mmol/L 143 mmol/L Potassium Level 4.8 mmol/L 4.8 mmol/L Chloride Level 109 mmol/L 111 mmol/L Carbon Dioxide Level 27 mmol/L 25 mmol/L Anion Gap 7.0 mmol/L 7.0 mmol/L Blood Urea Nitrogen 33 mg/dl 30 mg/dl Creatinine 2.30 mg/dl 2.20 mg/dl Est Creatinine Clear Calc Drug Dose 18.3 ml/min 18.9 ml/min Estimated GFR () 28.5 30.1 Estimated GFR (Non- 24.6 26.0 BUN/Creatinine Ratio 14.5 13.7 Random Glucose 85 mg/dl 84 mg/dl Calcium Level 8.2 mg/dl 8.2 mg/dl Total Bilirubin 0.4 mg/dl Direct Bilirubin 0.1 mg/dl Aspartate Amino Transf (AST/SGOT) 14 U/L Alanine Aminotransferase (ALT/SGPT) 8 U/L Alkaline Phosphatase 71 U/L Total Creatine Kinase 70 U/L Creatine Kinase MB 2.0 ng/ml Creatine Kinase MB Ratio 2.9 Troponin I 0.018 ng/ml Total Protein 6.4 gm/dl Albumin 3.3 gm/dl Lipase 209 U/L Erythrocyte Sedimentation Rate 4 mm/hr Iron Level 106 mcg/dl Total Iron Binding Capacity 251 mcg/dl Transferrin 194 mg/dl Transferrin % Saturation 39 % Ferritin 179.7 ng/ml C-Reactive Protein < 0.29 mg/dl Vitamin B12 Level 972 pg/mL Folate > 24.00 ng/mL Impression Patient is a 86 year old male post recent OH with occult positive stool, w/o evidence of gross GI bleeding and w/o drop in Hb. Plan 1. Due to high risk for procedures, in light of recent OH, would recommend against endoscopy, unless he begins with gross GI bleed and a significant drop in the Hb/Hct. 2. Would continue daily PPI and avoidance of NSAIDs while on Plavix. I saw and evaluated the patient. GI is consulted due to a question of IBD in the past and possible heme positive stool. The patient denies having nausea, abdominal pain, but does admit to chronic problems with his bowel (constipation / diarrhea). PE: nad, diffuse eccymosis over arms and legs. Impression: No obvious GI bleeding at this time. given recent medical issues would not advocate an interventional procedure for the present. Recomendations: follow-up with GI as needed Please call with any questions
--- NOTE | 2017-01-31 11:21 | CARDIOLOGY CONSULTATION ---
DATE OF CONSULTATION: 01/31/2017 REFERRING PHYSICIAN: Dr. Patel. INDICATION: Concern regarding GI bleed. HISTORY OF PRESENT ILLNESS: The patient is an 86-year-old male with complex history which includes: 1. Chronic Crohn's disease with past flares. 2. Hypertension. 3. 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 4. Parkinson's disease with mild dementia. 5. Chronic renal insufficiency. The patient seen on request. He carries a history of prior presentation on 01/26/2017 with acute nausea, chest pain with marked ST elevation on initial EKG which returned to baseline with nitrates and aspirin. Due to underlying multiple issues, he was managed conservatively, was recently seen in the outpatient setting on 01/26/2017, noting no clinical decline, though continues to complain of chronic lower bowel issues. He re-presented per review of records to [facility] on 01/28/2017 with a description of a mechanical fall. The patient feels he tripped over a fan, struck his chin, face and left hand with significant ecchymoses. Radiologic imaging were unrevealing and he was discharged to home. He re-presents now with concerns of nausea and generalized malaise, dropping hemoglobin. This morning the patient notes no complaints, has had diarrhea for 1-2 days as well as a sense of abdominal fullness. Notes no chest pain, shortness of breath, orthopnea. Notes no worsening peripheral edema. Notes no dizziness or lightheadedness. Notes no tachypalpitations. Weight per the patient has been trending downward, 10-20 pounds at least over the past year's time. PAST MEDICAL HISTORY: In addition to above is notable for paroxysmal atrial fibrillation, though in the setting of acute illness in 2008 without recurrence. He on presentation earlier in December had been on Coumadin but it was discontinued at that time due to elevated INR and plans for dual antiplatelet with aspirin and clopidogrel. The patient is not specifically aware of melena or hematochezia. He is only a fair historian. ALLERGIES: AMOXICILLIN AND PROPOXYPHENE. MEDICATIONS: On presentation were atorvastatin 20 mg p.o. daily, aspirin 81 mg p.o. daily, Sinemet 25/100 four times per day, tolterodine 2 mg once per day, B12 1000 mcg monthly, clopidogrel 75 mg per day, Toprol-XL 25 mg p.o. every day. PAST SURGICAL HISTORY: Notable for prior appendectomy, lithotripsy and multiple urinary stone interventions. FAMILY HISTORY: Not notable specifically for cardiac disease. SOCIAL HISTORY: The patient is a nonsmoker but past rare cigarette use. Uses alcoholic beverages on a rare basis. Currently resident of [facility]. PHYSICAL EXAMINATION: VITAL SIGNS: This morning heart rate is 57, blood pressure is 144/75. HEENT: Normocephalic. There is evidence of ecchymosis of the chin and jaw. NECK: Thin. There is no distinct jugular venous distention. LUNGS: Clear. CARDIOVASCULAR: Regular with normal S1, S2. There is less than grade 1/6 systolic murmur. There is no diastolic murmur. ABDOMEN: Soft with fullness in the left lower quadrant on palpation, similar to prior examinations. EXTREMITIES: Without cyanosis or clubbing. There is ecchymosis superficial of the left hand and arm. There is no edema. There are intact distal pulses. LABORATORY DATA: White cell count 7.4, hemoglobin is 10.2, hematocrit is 32.3. Sodium is 143, potassium is 4.8, chloride is 109, bicarbonate is 27, BUN is 33, creatinine is 2.3. AST and ALT are normal. Troponin is normal at 0.018. EKG reveals sinus bradycardia at a rate of 57, hyperacute T waves. Telemetry reveals no arrhythmias. IMPRESSION: The patient is a complex 86-year-old male with recent hospitalization on 01/02/2017 with acute nausea, chest pain, and ST elevation consistent with a border inferoposterior infarct. He has been managed conservatively since that time since multiple underlying medical issues including chronic renal insufficiency. He had been on anticoagulation up until December due to remote history of atrial fibrillation without documented recurrence. This was discontinued. He has been maintained on dual antiplatelet therapy. He presents now with a mechanical fall 2 days prior to current admission and then returned again with nausea and generalized malaise and diminished hemoglobin. No acute cardiac issues have been identified. The patient does have a prominent fullness to the left lower quadrant palpable, with KUB in December demonstrating stool filled colon. No overt evidence of bleeding per patient description. RECOMMENDATIONS: Given labile hemodynamics, we will recommend attempting to continue aspirin and clopidogrel unless defined bleeding disorder is identified. Hemoglobins may reflect recent injuries. He does have multiple risks for colon lesions with history of chronic Crohn's disease and palpable left lower quadrant fullness. We will continue beta-virginia with Toprol-XL 12.5 mg per day and follow along as clinical course progresses and GI evaluation proceeds.
[2017-01-31 11:41] VITALS: BP 127/55; PULSE 51; TEMP 36.4; O2SAT 96
[2017-01-31 14:55] LABS: URINE APPEARANCE CLEAR (CLEAR); URINE BILIRUBIN NEG (NEG); URINE COLOR YELLOW; URINE NITRITE NEG (NEG); URINE PH 5.5 (4.5-7.5); UROBILINOGEN NEG (NEG)
[2017-01-31 15:10] LABS: MANUAL MICROSCOPIC REQUIRED? NO; REVIEW REQ? NO
[2017-01-31 15:26] VITALS: BP 119/53; PULSE 48; TEMP 36.4; O2SAT 98
[2017-01-31 19:12] VITALS: BP 119/64; PULSE 52; TEMP 36.6; O2SAT 100
--- NOTE | 2017-01-31 19:45 | DIAGNOSTIC IMAGING REPORT ---
CT SCAN OF THE ABDOMEN AND PELVIS WITHOUT CONTRAST CLINICAL HISTORY: Generalized abdominal pain COMPARISON STUDY: 07/24/2016 TECHNIQUE: CT scan of the abdomen and pelvis was performed from the lung bases to the proximal femurs. Images are reviewed in the axial, sagittal, and coronal planes. IV contrast was not administered for this examination. Oral contrast was administered CT DOSE: 273.54 mGy.cm FINDINGS: Lower chest: There is pulmonary emphysema. There are left lower lobe nodular opacities, likely representing a pneumonitis/bronchiolitis. There is a stable 6 mm right lower lobe opacity, likely representing an area of scarring. Liver: There are a few tiny hypodensities, likely representing cysts. Gallbladder: Cholelithiasis. Contracted. Gallbladder wall thickening. Spleen: Normal in size and attenuation. Pancreas: Unremarkable. Adrenal glands: Unremarkable. Kidneys: There is a 2 mm nonobstructing upper pole right renal calculus. There are 2 lower pole right renal calculi the largest of which measures 2 mm. There are multiple left renal calculi, the largest of which measures 4 mm. There is no hydronephrosis. No ureteral calculi are visualized. There is a tiny bladder calculus. Bowel: There are no transition zones indicate bowel obstruction. There is mild fecal retention. There is no acute diverticulitis. There is a thick-walled right lower quadrant bowel loop. This may represent an unusual appearing cecum and ascending colon. A dilated thick-walled small bowel could appear similar but is felt to be less likely Peritoneum: There is no intraperitoneal free air or abdominal ascites. Vasculature: The abdominal aorta is normal in course and caliber. Adenopathy: None. Pelvic viscera: There is a trabeculated bladder. There are multiple prostate patient therapy implant seeds, several which are extra prostatic. Skeletal structures: No destructive osseous lesions are seen. IMPRESSION: 1. Bilateral nephrolithiasis 2. Tiny bladder calculus 3. Contracted thick-walled gallbladder containing multiple calculi, similar in appearance the prior study 4. Thick walled right lower quadrant bowel loop, likely representing a thick-walled cecum and proximal ascending colon 5. Stable 6 mm right lower lobe pulmonary nodule 6. Interval development of left basilar nodular airspace opacities consistent with a pneumonitis 7. Bladder wall thickening and trabeculated bladder 8. 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 Severe emphysema 10. No evidence of bowel obstruction. No evidence of free air Electronically signed by: Caden Schmitt M.D. 01/31/2017 7:44 PM Dictated Date/Time: 01/31/2017 7:28 PM
[2017-01-31] MEDS: PANTOprazole INJ 40 MG in SYRINGE 0 ML IV SCH (20:59)
[2017-01-31 23:47] VITALS: BP 100/58; PULSE 59; TEMP 36.8; O2SAT 96
[2017-02-01 05:01] VITALS: BP 106/57; PULSE 52; TEMP 36.5; O2SAT 99
[2017-02-01 05:57] LABS: HEMATOCRIT 27.9 % (42-52); MEAN CELL VOLUME 94.9 fL (80-100); MEAN CORPUSCULAR HEMOGLOBIN 31.6 pg (25-34); MEAN CORPUSCULAR HGB CONC 33.3 g/dl (32-36); MEAN PLATELET VOLUME 9.6 fL (7.4-10.4); PLATELET COUNT 164 K/uL (130-400); RED BLOOD COUNT 2.94 M/uL (4.7-6.1); WHITE BLOOD COUNT 6.67 K/uL (4.8-10.8)
[2017-02-01 06:35] LABS: BUN/CREATININE RATIO 14.4 (10-20); CALCIUM 7.9 mg/dl (8.5-10.1); CREATININE 2.1 mg/dl (0.60-1.40); POTASSIUM 4.8 mmol/L (3.5-5.1)
[2017-02-01 06:57] VITALS: BP 125/50; PULSE 98; TEMP 36.4; O2SAT 93
[2017-02-01] MEDS: PAROXETINE 20 MG TAB PO SCH (08:27)
[2017-02-01] MEDS: CARBIDOPA/LEVODOPA 25/100MG TAB PO SCH ×2 (08:27→12:41)
[2017-02-01] MEDS: PANTOprazole INJ 40 MG in SYRINGE 0 ML IV SCH (08:33)
[2017-02-01] MEDS: METOPROLOL SUCC 25MG EXT REL TAB PO SCH (08:42)
--- NOTE | 2017-02-01 09:21 | Hospitalist Progress Note ---
Hospitalist Progress Note Date of Service February 01, 2017. (Nasrin Carter PA-C) Subjective Pt evaluation today including: conversation w/ patient, conversation w/ family , physical exam, chart review, lab review, review of studies, conversation w/ professional employer consultant Pain: None PO Intake: Good, improved Voiding: no voiding problems The patient was seen and examined this morning. Pt reports doing well today, he feels his mood is better, brighter, and that his appetite has actually improved. He admits to some loose stools but states this has been ongoing. His son, Abdullahi and [id number] Vanessa are present at bedside. He reports his left ring finger seems to be numb today but denies pain or other acute complaints. Discussion regarding findings on CT abd/pelvis was held - cecum wall thickening ?crohns or possible malignancy. Pt does not seem to want invasive testing or workup at this time and family is in agreement with this. He is hopeful of being discharged today. Plan is for him to stay with son, Guanaco and his at time of discharge. He is not keen on the idea of going to stay at [facility] although he does eat lunch and dinner there on a daily basis. Constitutional: No chills, No fever, No sweats Eyes: No diplopia, No redness ENT: No nasal symptoms, No trouble swallowing Respiratory: No cough, No shortness of breath Cardiovascular: No chest pain, No palpitations Abdomen: + diarrhea, No constipation, No nausea, No pain, No vomiting Musculoskeletal: No joint pain, No muscle pain, No swelling Skin: No itch, No rash (Nasrin Carter PA-C) Objective Vital Signs Date Time Temp Pulse Resp B/P Pulse Ox O2 Delivery O2 Flow Rate FiO2 02/01/17 06:57 36.4 98 16 125/50 93 Room Air 02/01/17 05:01 36.5 52 18 106/57 99 Room Air 02/01/17 04:00 Room Air 02/01/17 00:00 Room Air 01/31/17 23:47 36.8 59 18 100/58 96 Room Air 01/31/17 20:00 Room Air 01/31/17 19:12 36.6 52 18 119/64 100 Room Air 01/31/17 16:00 Room Air 01/31/17 15:26 36.4 48 18 119/53 98 Room Air 01/31/17 12:00 Room Air 01/31/17 11:41 36.4 51 16 127/55 96 Room Air (Nasrin Carter PA-C) Physical Exam Notes: General Appearance: WD/WN, no apparent distress, + thin, + pertinent finding (+ ecchymotic lesion over chin and left submental region) Eyes: PERRL, EOMI ENT: hearing grossly normal, pharynx normal Neck: supple, no JVD Respiratory/Chest: lungs clear, no respiratory distress, no accessory muscle use Cardiovascular: regular rate, rhythm, no murmur Abdomen: normal bowel sounds, non tender, soft Extremities: no pedal edema, no calf tenderness, + pertinent finding (+left hand and wrist ecchymotic s/p fall, + numbness to light touch on left ring finger) (Nasrin Carter PA-C) Laboratory Results Last 24 Hours Test 01/31/17 14:37 02/01/17 05:47 Urine Color YELLOW Urine Appearance CLEAR Urine pH 5.5 Urine Specific Braham 1.010 Urine Protein NEG Urine Glucose (UA) NEG Urine Ketones NEG Urine Occult Blood NEG Urine Nitrite NEG Urine Bilirubin NEG Urine Urobilinogen NEG Urine Leukocyte Esterase NEG White Blood Count 6.67 K/uL Red Blood Count 2.94 M/uL Hemoglobin 9.3 g/dL Hematocrit 27.9 % Mean Corpuscular Volume 94.9 fL Mean Corpuscular Hemoglobin 31.6 pg Mean Corpuscular Hemoglobin Concent 33.3 g/dl RDW Standard Deviation 49.1 fL RDW Coefficient of Variation 14.1 % Platelet Count 164 K/uL Mean Platelet Volume 9.6 fL Sodium Level 143 mmol/L Potassium Level 4.8 mmol/L Chloride Level 112 mmol/L Carbon Dioxide Level 25 mmol/L Anion Gap 6.0 mmol/L Blood Urea Nitrogen 30 mg/dl Creatinine 2.10 mg/dl Est Creatinine Clear Calc Drug Dose 19.8 ml/min Estimated GFR () 31.8 Estimated GFR (Non- 27.5 BUN/Creatinine Ratio 14.4 Random Glucose 102 mg/dl Calcium Level 7.9 mg/dl (Nasrin Carter PA-C) Assessment and Plan This is an 86 yo M with PMHx of atrial fibrillation on metoprolol, was taken off coumadin during last admission ~3 wks ago when he was here for acute [place]. He now presents with increased nausea and fall, where family was initally concerned for bleeding. GI bleed - GI was consulted at time of admission, currently on a protonix gtt, can transition to a high IV BID dosing. - Hgb dropped to 9.3, possibly just dilutional, follow - Iron studies complete: transferrin is borderline of low normal at 194, but other studies are WNL. B12 is slightly elevated. - Pt was placed on dual therapy asa and plavix during last admission, Cardiology recommending to continue ASA and plavix at this time unless acute bleed is identified. - CT abd/pelvis as below- thick walled cecum possible representing cause of lower abdominal fullness and diarrhea/constipation along with Crohns disease etiology. This was discussed with the patient and his family at bedside, possible that GI would do outpatient workup with diagnostic colonoscopy. Pt does not want invasive testing but he may benefit just from a diagnosis/ prognosis standpoint. - Will ask PT/OT to see him today. Crohns disease - CRP negative, no acute flare - CT abd/pelvis completed on 01/31 IMPRESSION: 1. Bilateral nephrolithiasis 2. Tiny bladder calculus 3. Contracted thick-walled gallbladder containing multiple calculi, similar in appearance the prior study 4. Thick walled right lower quadrant bowel loop, likely representing a thick-walled cecum and proximal ascending colon 5. Stable 6 mm right lower lobe pulmonary nodule 6. Interval development of left basilar nodular airspace opacities consistent with a pneumonitis 7. Bladder wall thickening and trabeculated bladder 8. 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 Severe emphysema 10. No evidence of bowel obstruction. No evidence of free air CKD stage III - Baseline of 1.5-1.9, Cr. trending down to 2.1 from 2.4, Fluids were stopped last night at 2400. Atrial fibrillation - Cont metoprolol succ 12.5 mg daily Hx inferior [place] on 01/05/17 - At that time was taken off coumadin. 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 - Monitor H&H. Parkinsons Disease: -Continue sinemet 25/100 QID and Paxil - The patient has been living at home by himself; question if the patient should be discharged to [facility] as a resident after this admission, not living at home and going there for meals. Pt is agreeable to living with his son, Guanaco, after discharge from here but does not want to stay at [facility] despite having lunch and dinner there already. He lives alone in two story home - laundry is in the basement with 15 stairs. I have asked him to have others wash/dry his laundry to eliminate the possibility of fall down the stairs since other options such as moving the laundry upstairs or going to SNF seem to be out of the question to the patient. - PT/OT consulted GERD- stable DVT ppx: Teds, SCDS, continue asa and plavix Disposition: From home, has meals at [facility], PT/OT consults, possible discharge later today. (Nasrin Carter, PA-C) Attending Attestation: Pt seen/examined, chart reviewed, care plan d/w LETICIA Carter. I agree w/ the cosby components of her documentation. Please see my attending note and exam findings in the discharge summary from today. Pt to be d/c home today with his son. Jere Adorno MD (Jere Adorno MD)
[2017-02-01 11:59] VITALS: BP 113/54; PULSE 102; TEMP 36.8; O2SAT 92
[2017-02-01] MEDS ORDERED: PANT40TA PO (14:05)
--- NOTE | 2017-02-01 14:14 | Discharge Instructions ---
Discharge Instructions Date of Service February 01, 2017. Admission Reason for Admission: Gi Bleeding Recent Mi Discharge Discharge Diagnosis / Problem: S/p fall, GI bleed Discharge Goals Goal(s): Decrease discomfort, Improve function, Increase independence, Improve disease control Activity Recommendations Activity Limitations: resume your previous activity Lifting Limitations: no more than 25 pounds Exercise/Sports Limitations: gradually increase as tolerated Shower/Bathe: no limitations Driving or Machine Use: DO NOT DRIVE . Instructions / Follow-Up Instructions / Follow-Up You were admitted to [facility] after a fall you sustained that caused bruising to your chin and left upper extremity and diagnosed with GI bleed. - During your stay here you were treated with intravenous fluids, prophylactic therapy with acid virginia (pantoprazole) and your hemoglobin levels were trended which remained stable. - Cardiology was involved and recommended you continue taking aspirin and plavix. - You were seen by Gastroenterology during your stay, there was no need for scoping procedure during admission. You should continue the increased dosage of pantoprazole 40 mg twice daily - Imaging studies which were completed include CT of the abdomen and pelvis, and were abnormal showing a thickened wall in the cecum. Given this GI would like to see you in 1-2 weeks and possibly schedule you for a colonoscopy. - You are being discharged to home, to live with your son Guanaco and family. - May take [id number] immodium as needed for diarrhea. Continue taking all medications as directed. Follow up with your Primary Care Provider within 1 week. Follow up with GI within 1-2 weeks. Current Hospital Diet Patient's current hospital diet: AHA Diet (Heart Healthy) Discharge Diet Recommended Diet: AHA Diet (Heart Healthy) Procedures Procedures Performed: None Pending Studies Studies pending at discharge: no Laboratory Results Hemoglobin A1c Test 01/03/17 06:50 Range/Units Estimated Average Glucose 126 mg/dl Hemoglobin A1c 6.0 H 4.5-5.6 % Lipid Panel Test 01/03/17 06:50 Range/Units Triglycerides Level 134 0-150 mg/dl Cholesterol Level 111 0-200 mg/dl HDL Cholesterol 36 mg/dl Cholesterol/HDL Ratio 3.1 LDL Cholesterol, Calculated 48 mg/dl Medical Emergencies . Who to Call and When: Medical Emergencies: If at any time you feel your situation is an emergency, please call 911 immediately. . Non-Emergent Contact Non-Emergency issues call your: Primary Care Provider Call Non-Emergent contact if: you have a fever, you have any medication questions . Past History Medical & Surgical History: (1) GI bleeding recent [place] (2) Acute GI bleeding (3) Crohns disease (4) Hypertension (5) Nausea . "Provider Documentation" section prepared by Ceci Carter. . VTE Core Measure Inpt VTE Proph given/why not?: Celia Krause, SCD's
--- NOTE | 2017-02-01 14:33 | Discharge Summary ---
Discharge Summary Date of Service February 01, 2017. 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 There is no CT evidence of acute cortical infarction. There is no evidence of midline shift. There is no acute hemorrhage. No calvarial fractures are visualized. There are moderately extensive white matter hypodensities likely on a small vessel basis. There is no evidence of pathologic ventricular dilatation. There is no evidence of acute sinusitis IMPRESSION: No acute intracranial findings CHEST ONE VIEW PORTABLE 01/30/17 FINDINGS: Postsurgical changes are present on the right. There is mild superior hilar retraction. There is mild chronic interstitial thickening. There is no acute rectal consolidation. There is no failure. There are no pleural effusions.[ IMPRESSION: No active disease in the chest. CT SCAN OF THE ABDOMEN AND PELVIS WITHOUT CONTRAST 01/31/17 IMPRESSION: 1. Bilateral nephrolithiasis 2. Tiny bladder calculus 3. Contracted thick-walled gallbladder containing multiple calculi, similar in appearance the prior study 4. Thick walled right lower quadrant bowel loop, likely representing a thick-walled cecum and proximal ascending colon 5. Stable 6 mm right lower lobe pulmonary nodule 6. Interval development of left basilar nodular airspace opacities consistent with a pneumonitis 7. Bladder wall thickening and trabeculated bladder 8. 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 Severe emphysema 10. No evidence of bowel obstruction. No evidence of free air Consultations: Cardiology Gastroenterology (Nasrin Carter PA-C) Medication Reconciliation Changed Medications: Pantoprazole (Protonix) 40 Mg Tab 40 MG PO BID for 30 Days, #60 TAB (Changed from: DAILY; 30) Continued Medications: Carbidopa/Levodopa (Sinemet 25MG/100MG) Tab 1 TAB PO QID, TAB 0700, 1100, 1600, 1900 Cholecalciferol (Vitamin D3) 2,000 Unit Tab 2000 UNITS PO DAILY Clopidogrel Bisulfate (Plavix) 75 Mg Tab 75 MG PO DAILY@NOON, TAB Cyanocobalamin (Cyanocobalamin) 1,000 Mcg/Ml Inj 1 ML SQ MONTHLY Metoprolol Succinate (Toprol Xl) 25 Mg Tabcr 12.5 MG PO DAILY, #30 TAB Ondasetron Odt (Zofran Odt) 4 Mg Tab 4 MG SL Q6H for Nausea, #10 TAB Paroxetine HCl (Paroxetine) 20 Mg Tab 20 MG PO DAILY Discharge Exam Pt evaluation today including: conversation w/ patient, conversation w/ family , physical exam, chart review, lab review, review of studies, conversation w/ quality improvement consultant Pain: None PO Intake: Good, improved Voiding: no voiding problems The patient was seen and examined this morning. Pt reports doing well today, he feels his mood is better, brighter, and that his appetite has actually improved. He admits to some loose stools but states this has been ongoing. His son, Abdullahi and [id number] Vanessa are present at bedside. He reports his left ring finger seems to be numb today but denies pain or other acute complaints. Discussion regarding findings on CT abd/pelvis was held - cecum wall thickening ?crohns or possible malignancy. Pt does not seem to want invasive testing or workup at this time and family is in agreement with this. He is hopeful of being discharged today. Plan is for him to stay with son, Guanaco and his at time of discharge. He is not keen on the idea of going to stay at [facility] although he does eat lunch and dinner there on a daily basis. Constitutional: No chills, No fever, No sweats Eyes: No diplopia, No redness ENT: No nasal symptoms, No trouble swallowing Respiratory: No cough, No shortness of breath Cardiovascular: No chest pain, No palpitations Abdomen: + diarrhea, No constipation, No nausea, No pain, No vomiting Musculoskeletal: No joint pain, No muscle pain, No swelling Skin: No itch, No rash Objective Vital Signs Date Time Temp Pulse Resp B/P Pulse Ox O2 Delivery O2 Flow Rate FiO2 02/01/17 06:57 36.4 98 16 125/50 93 Room Air 02/01/17 05:01 36.5 52 18 106/57 99 Room Air 02/01/17 04:00 Room Air 02/01/17 00:00 Room Air 01/31/17 23:47 36.8 59 18 100/58 96 Room Air 01/31/17 20:00 Room Air 01/31/17 19:12 36.6 52 18 119/64 100 Room Air 01/31/17 16:00 Room Air 01/31/17 15:26 36.4 48 18 119/53 98 Room Air 01/31/17 12:00 Room Air 01/31/17 11:41 36.4 51 16 127/55 96 Room Air Physical Exam Notes: General Appearance: WD/WN, no apparent distress, + thin, + pertinent finding (+ ecchymotic lesion over chin and left submental region) Eyes: PERRL, EOMI ENT: hearing grossly normal, pharynx normal Neck: supple, no JVD Respiratory/Chest: lungs clear, no respiratory distress, no accessory muscle use Cardiovascular: regular rate, rhythm, no murmur Abdomen: normal bowel sounds, non tender, soft Extremities: no pedal edema, no calf tenderness, + pertinent finding (+left hand and wrist ecchymotic s/p fall, + numbness to light touch on left ring finger) (Nasrin Carter, PA-Piero) Hospital Course H&P per Dr. Amanda MD. HISTORY OF PRESENT ILLNESS: The patient is an 86-year-old white male, with a recent history of acute KS, who was admitted to the hospital 3 weeks ago , coming to the Emergency Room because of feeling nauseation. He reports has had evaluation in the Emergency Room 2 days ago because of a fall; submandibular area was bluish and left hand was bluish. The family sent him in again today because of intermittent nauseation. The family is concerned about bleeding. In the Emergency Room, a head CT done and was not remarkable. The patient was on Coumadin for atrial fibrillation. Coumadin was discontinued on the last discharge. The patient has been on Plavix for heart disease, it was upgraded from Aspirin to Plavix per family reported. The acute KS was about 3 weeks ago. The patient was experiencing diarrhea x1, but no abdominal pain. He reported that he has experienced loose stools due to Crohn's disease which is not unusual for him. The patient denied headache or vomiting. No blood in the stools or black stools. In the Emergency Room, head CT was not remarkable. However, ED physician found positive blood on the rectal exam. When I interviewed the patient he is awake, alert, orientated, conversational and follows all commands. No acute distress. He confirmed the above information. He denied fever or chills. He denied generalized weakness. He denied cough or sputum. He denied wheezing. There is no nausea or vomiting now. No diarrhea now. He denied dysuria, urgency or frequencies. He denied facial droop, slurry speeches or local weakness. He denied skin rashes. He is not homicidal or suicidal. PHYSICAL EXAMINATION: VITAL SIGNS: Temperature 36.6, pulse 66, respiratory rate 20, blood pressure 152/69 and pulse ox was 99% on room air. GENERAL: The patient is a white male, who looks frail and weak, but conversational, in no acute distress. HEAD: Normocephalic. EYES: Pupils are equal, round and responds to light. EARS: Normal. NOSE: Normal. NECK: Supple. HEART: Regular rhythm, S1, S2. No murmur. LUNGS: Clear to auscultation. No wheezing, rhonchi or crackles. ABDOMEN: Soft and nontender. Bowel sounds were positive. RECTAL: Exam per ED physician shows grossly hem positive positive. MUSCULOSKELETAL: No peripheral edema. Pulse was positive. NEUROLOGIC: Cranial nerves II-XII are intact. There were no local deficits. SKIN: Bluish on the anterior submandibular area and also the left hand. Hospital Course: This is an 86 yo M with PMHx of atrial fibrillation on metoprolol, was taken off coumadin during last admission ~3 wks ago when he was here for acute KS. He now presents with increased nausea and fall, where family was initially concerned for bleeding. CT of the head was obtained and was negative. The patient was found to have hemmocult positive stool, along with weight loss of 10 -20lbs and CT abd/pelvis showing cecum wall thickening. GI did not opt to do inpatient scope as vital signs were stable, hemoglobin remained stable. Cardiology was consulted and decided to continue dual platelet therapy with aspirin and plavix. The patient will have outpatient scheduling with GI within 1-2 weeks for possible diagnostic colonoscopy. Discussion was held with pt and his family- all in agreement that he did not want invasive testing or treatment if this were to be a malignancy. Pt was in PRASANNA at time of admission; Cr. trended downward back to his baseline. Pt did not want to go to rehab at time of discharge so it was agreed that he would live with his son, Guanaco and his . Family will make arrangements with [facility] for meals from this point onward. GI bleed - GI was consulted at time of admission, currently on a protonix gtt, can transition to a high IV BID dosing. - Hgb dropped to 9.3, possibly just dilutional, follow - Iron studies complete: transferrin is borderline of low normal at 194, but other studies are WNL. B12 is slightly elevated. - Pt was placed on dual therapy asa and plavix during last admission, Cardiology recommending to continue ASA and plavix at this time unless acute bleed is identified. - CT abd/pelvis as below- thick walled cecum possible representing cause of lower abdominal fullness and diarrhea/constipation along with Crohns disease etiology. This was discussed with the patient and his family at bedside, possible that GI would do outpatient workup with diagnostic colonoscopy. Pt does not want invasive testing but he may benefit just from a diagnosis/ prognosis standpoint. - Will ask PT/OT to see him today. Crohns disease - CRP negative, no acute flare - CT abd/pelvis completed on 01/31 IMPRESSION: 1. Bilateral nephrolithiasis 2. Tiny bladder calculus 3. Contracted thick-walled gallbladder containing multiple calculi, similar in appearance the prior study 4. Thick walled right lower quadrant bowel loop, likely representing a thick-walled cecum and proximal ascending colon 5. Stable 6 mm right lower lobe pulmonary nodule 6. Interval development of left basilar nodular airspace opacities consistent with a pneumonitis 7. Bladder wall thickening and trabeculated bladder 8. 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 Severe emphysema 10. No evidence of bowel obstruction. No evidence of free air PRASANNA on CKD stage III - Baseline of 1.5-1.9, Cr. trending down to 2.1 from 2.4, Fluids were stopped last night at 2400. Atrial fibrillation - Cont metoprolol succ 12.5 mg daily Hx inferior KS on 01/05/17 - At that time was taken off coumadin. - Follows with Dr. Kelley as his peanut shaker- appreciate recs - will continue ASA and plavix dual therapy without signs of acute bleed. - Monitor H&H. Parkinsons Disease: -Continue sinemet 25/100 QID and Paxil - The patient has been living at home by himself; question if the patient should be discharged to [facility] as a resident after this admission, not living at home and going there for meals. Pt is agreeable to living with his son, Guanaco, after discharge from here but does not want to stay at [facility] despite having lunch and dinner there already. He lives alone in two story home - laundry is in the basement with 15 stairs. I have asked him to have others wash/dry his laundry to eliminate the possibility of fall down the stairs since other options such as moving the laundry upstairs or going to SNF seem to be out of the question to the patient. - PT/OT consulted GERD- stable DVT ppx: Teds, SCDS, continue asa and plavix Disposition: From home, has meals at [facility], PT/OT consulted, discharge today. Total Time Spent: Greater than 30 minutes This includes examination of the patient, discharge planning, medication reconciliation, and communication with other providers. (Nasrin Carter, CHRISSY) Attending Discharge Note & Attestation: Pt seen/examined, chart reviewed, care plan d/w LETICIA Carter on day of discharge. I agree w/ the cosby components of her discharge summary. 86yo male with parkinson's disease and recent acute KS about 3 weeks prior who presented with nausea, dry heaves, and falls. Family reported progressive weight loss over the last few months as well as diarrhea. During his stay there was no evidence of ACS. No specific infectious etiology was found. He underwent CT of the abdomen and pelvis showing thickening of the cecum. He also had evidence of gallstones but no findings to suggest acute cholecystitis. There was no evidence of recurrent prostate cancer either. He was treated for acute kidney injury with IV fluids. PT/OT were consulted and he was cleared for home, but it was highly recommended that he stay with family given his progressive decline in his health. He was agreeable to staying with his son. Discharge exam - gen - thin, nad, masked facies mouth - MMM neck - no JVD heart - RRR, s1, s2 lungs - CTA b/l abd - soft, NT ext - no edema Due to the progressive weight loss, abnormal abdominal CT, h/o Crohn's disease, and diarrhea he will have follow-up with [facility] as an outpatient. Colonoscopy will be discussed during that follow-up. Jere Adorno MD (Jere Adorno MD) Discharge Instructions Please refer to the electronic Patient Visit Report (Discharge Instructions) for additional information. (Nasrin Carter PA-C) Follow-Up Follow up with your Primary Care Provider within 1 week. Follow up with GI within 1-2 weeks. (Nasrin Carter PA-C) Additional Copies To Drew Cheung D.O.
[2017-02-01 15:24] VITALS: BP 113/54; PULSE 102; TEMP 36.8; O2SAT 92
[2017-02-01 15:25] VITALS: BP 132/74; PULSE 104; TEMP 36.7; O2SAT 95
[2017-02-01] MEDS ORDERED: ASPEC81 PO (15:25)
[2017-07-11] MEDS ORDERED: ULT50X PO (13:29)
[2017-07-11] MEDS ORDERED: ASPEC81 PO (13:29)
== END 2017-02-01 16:00 | disposition home or self-care (01) | DRG 377 ==
LOC: ENRESERVDT → ENRESERVTM → C.EDB 13:21 → C.2T 18:07 → C.MED 01-31 13:59
PROVIDERS: ADMIT Hospitalist; ATTEND Internal Medicine
DX: K62.5 Hemorrhage of anus and rectum (principal); E43 Unspecified severe protein-calorie malnutrition; Z68.1 Body mass index [BMI] 19.9 or less, adult; K50.90 Crohn's disease, unspecified, without complications; N17.9 Acute kidney failure, unspecified; R11.0 Nausea; R29.6 Repeated falls; I48.0 Paroxysmal atrial fibrillation; I12.9 Hypertensive chronic kidney disease with stage 1 through stage 4 chronic kidney disease, or unspecified chronic kidney disease; N18.3 Chronic kidney disease, stage 3 (moderate); I25.10 Atherosclerotic heart disease of native coronary artery without angina pectoris; K21.9 Gastro-esophageal reflux disease without esophagitis; G20 Parkinson's disease; F02.80 Dementia in other diseases classified elsewhere, unspecified severity, without behavioral disturbance, psychotic disturbance, mood disturbance, and anxiety; F17.200 Nicotine dependence, unspecified, uncomplicated; I25.2 Old myocardial infarction; Z66 Do not resuscitate; Z79.82 Long term (current) use of aspirin; Z79.02 Long term (current) use of antithrombotics/antiplatelets; Z79.899 Other long term (current) drug therapy; S60.222A Contusion of left hand, initial encounter; S00.83XA Contusion of other part of head, initial encounter; S01.112A Laceration without foreign body of left eyelid and periocular area, initial encounter; W18.09XA Striking against other object with subsequent fall, initial encounter; Y92.008 Other place in unspecified non-institutional (private) residence as the place of occurrence of the external cause; Z79.01 Long term (current) use of anticoagulants; Z87.442 Personal history of urinary calculi; Z85.46 Personal history of malignant neoplasm of prostate; Z80.9 Family history of malignant neoplasm, unspecified; Z82.49 Family history of ischemic heart disease and other diseases of the circulatory system; Z84.1 Family history of disorders of kidney and ureter

== ENCOUNTER → 2017-02-09 | Outpatient (CLI) | payer OTHER ==
[~2017-02-09] MED LIST changes: +ASPEC81 PO; +CLOP1TAB5 PO; +ONDA4TAB10 SL; -PLV75 PO; +POLY335019 PO; +TRAM-10 PO; +ULT50X PO; +[UNRECOGNIZED DRUG - CODE] OT
[2017-02-09 17:56] LABS: HEMATOCRIT 31.2 % (42-52)
== END | disposition home or self-care (01) ==
LOC: C.LAB1850 16:00
PROVIDERS: ATTEND Registered Nurse
DX: D62 Acute posthemorrhagic anemia (principal)

== ENCOUNTER → 2017-02-15 | Outpatient (CLI) | payer OTHER ==
--- NOTE | 2017-02-15 08:45 | DIAGNOSTIC IMAGING REPORT ---
ABDOMEN AND PELVIS CT WITH ORAL CONTRAST CT DOSE: 292.16 mGycm HISTORY: Pain. Abnormal CT exam. K50.90 Crohn's [id number] scan, [id number] Diarrhea TECHNIQUE: Multiaxial CT images of the abdomen and pelvis were performed following the use of oral contrast. COMPARISON STUDY: 01/31/2017 FINDINGS: Study is acquired with oral contrast exclusively. Interstitial changes left and to lesser extent right base slightly improved. Liver is generally uniform within limitations of an unenhanced scan. Gallstones within a thickened gallbladder nonobstructing renal calcifications unchanged. Increased fecal load within the colon thickened loop of bowel right lower quadrant unchanged. No evidence for abscess collection or obstruction. Bladder is midline. Radioactive seeds within the prostate. Slight rectal wall thickening unchanged. Several small scattered reactive nodes. IMPRESSION: 1. No major change from the prior study. 2. Thick-walled nonobstructing loop of bowel right lower quadrant unchanged. 3. Gallstones within a thickened gallbladder wall 4. Basilar interstitial change somewhat improved in the prior study. 5. Nonobstructing renal calcifications bilaterally Electronically signed by: Jose Leonard M.D. 02/15/2017 8:43 AM Dictated Date/Time: 02/15/2017 8:36 AM
== END | disposition home or self-care (01) ==
LOC: C.CTS 07:45
PROVIDERS: ATTEND Registered Nurse
DX: K50.90 Crohn's disease, unspecified, without complications (principal); R19.7 Diarrhea, unspecified; R93.3 Abnormal findings on diagnostic imaging of other parts of digestive tract; K80.20 Calculus of gallbladder without cholecystitis without obstruction; N20.0 Calculus of kidney

== ENCOUNTER → 2017-03-30 | Outpatient (CLI) | payer OTHER ==
[~2017-03-30] MED LIST changes: -ASPI81TA28 PO; -POLY335019 PO; -TRAM-10 PO; -ULT50X PO; -[UNRECOGNIZED DRUG - CODE] OT
[2017-03-30 12:25] LABS: HEMATOCRIT 33.2 % (42-52); MEAN CELL VOLUME 95.7 fL (80-100); MEAN CORPUSCULAR HEMOGLOBIN 30.5 pg (25-34); MEAN CORPUSCULAR HGB CONC 31.9 g/dl (32-36); MEAN PLATELET VOLUME 9.6 fL (7.4-10.4); PLATELET COUNT 219 K/uL (130-400); RED BLOOD COUNT 3.47 M/uL (4.7-6.1); WHITE BLOOD COUNT 8.01 K/uL (4.8-10.8)
[2017-03-30 13:35] LABS: BLOOD UREA NITROGEN 35 mg/dl (7-18); BUN/CREATININE RATIO 12.1 (10-20); CALCIUM 8.3 mg/dl (8.5-10.1); CARBON DIOXIDE 28 mmol/L (21-32); CHLORIDE 110 mmol/L (98-107); GLUCOSE 90 mg/dl (70-99); POTASSIUM 4.8 mmol/L (3.5-5.1); SODIUM 143 mmol/L (136-145)
== END | disposition home or self-care (01) ==
LOC: C.LABWYN 13:33
PROVIDERS: ATTEND Nurse Practitioner Adult Health
DX: R53.83 Other fatigue (principal); R53.1 Weakness

== ENCOUNTER → 2017-05-09 | Outpatient (CLI) | payer OTHER ==
[~2017-05-09] MED LIST changes: +POLY335019 PO; +[UNRECOGNIZED DRUG - CODE] OT
[2017-05-09 13:06] LABS: HEMATOCRIT 29.5 % (42-52); MEAN CELL VOLUME 95.8 fL (80-100); MEAN CORPUSCULAR HEMOGLOBIN 31.2 pg (25-34); MEAN CORPUSCULAR HGB CONC 32.5 g/dl (32-36); MEAN PLATELET VOLUME 9.6 fL (7.4-10.4); PLATELET COUNT 215 K/uL (130-400); RED BLOOD COUNT 3.08 M/uL (4.7-6.1); WHITE BLOOD COUNT 9.06 K/uL (4.8-10.8)
[2017-05-09 13:08] LABS: BLOOD UREA NITROGEN 46 mg/dl (7-18); BUN/CREATININE RATIO 16.4 (10-20); CALCIUM 8.4 mg/dl (8.5-10.1); CARBON DIOXIDE 24 mmol/L (21-32); CHLORIDE 109 mmol/L (98-107); GLUCOSE 85 mg/dl (70-99); POTASSIUM 4.7 mmol/L (3.5-5.1); SODIUM 142 mmol/L (136-145)
== END | disposition home or self-care (01) ==
LOC: C.LABWYN 15:28
PROVIDERS: ATTEND Nurse Practitioner Adult Health
DX: D64.9 Anemia, unspecified (principal); N18.9 Chronic kidney disease, unspecified

== ENCOUNTER → 2017-05-30 | Outpatient (CLI) | payer OTHER ==
[2017-05-30 13:47] LABS: BLOOD UREA NITROGEN 35 mg/dl (7-18); BUN/CREATININE RATIO 12.6 (10-20); CALCIUM 8.4 mg/dl (8.5-10.1); CARBON DIOXIDE 24 mmol/L (21-32); CHLORIDE 114 mmol/L (98-107); GLUCOSE 82 mg/dl (70-99); POTASSIUM 4.6 mmol/L (3.5-5.1); SODIUM 145 mmol/L (136-145)
== END | disposition home or self-care (01) ==
LOC: C.LABWYN 06:05
PROVIDERS: ATTEND Internal Medicine Cardiovascular Disease
DX: N18.4 Chronic kidney disease, stage 4 (severe) (principal)

== ENCOUNTER 2017-07-07 10:01 | Inpatient (IN) | payer OTHER ==
[~2017-07-07] VITALS: Ht 180.3 cm; Wt 55.0 kg
[~2017-07-07 10:01] MED LIST changes: +CLINDAMYCIN IV 900 MG in DEXTROSE 5% 100ML 100 ML IV SCH; -POLY335019 PO; -[UNRECOGNIZED DRUG - CODE] OT
[2017-07-07] MEDS ORDERED: ONDANSETRON INJ 2 MG/ML 2 ML VIAL IV STA (10:12)
[2017-07-07] MEDS ORDERED: LIDOCAINE/EPINEPHRINE 1% 20 ML VIAL INFIL STA (10:15)
--- NOTE | 2017-07-07 10:22 | EMERGENCY ROOM VISIT NOTE ---
History Report prepared by Dominic: Latanya Licea Under the Supervision of: Dr. Georgi Lundberg M.D. First contact with patient: 10:07 Chief Complaint: FALL Stated Complaint: FALL History of Present Illness The patient is a 86 year old male who presents to the Emergency Room with complaints of an episode of a fall occurring [employer]. The patient fell in the bathroom this morning and landed on his left side. He is unsure how he fell. He states that he just lost his balance. He has a history of Parkinson's and has been falling frequently per [id number]. He hit his head today but denies LOC. The patient is complaining of left hip pain that worsens with movement. He has been unable to bear weight since the fall. The patient is on Plavix. He has some skin tears to his left elbow. He is complaining of neck pain and headache. His tetanus is up to date. He denies any abdominal pain. The patient is a resident at [facility]. He rates his current pain as a 9/10 in severity. Source of History: patient, family Onset: [employer] Position: other (global) Symptom Intensity: 9/10 Timing: other (episode) Modifying Factors (Worsening): movement Associated Symptoms: + headache, + neck pain, No LOC Note: Pt has left hip pain. Review of Systems See HPI for pertinent positives & negatives. A total of 10 systems reviewed and were otherwise negative. Past Medical & Surgical Medical Problems: (1) CKD (chronic kidney disease), stage IV (2) Crohns disease (3) Heart disease (4) Hip fracture (5) History of [place] (myocardial infarction) (6) Hypertension (7) Kidney stones (8) Left ureteral calculus (9) Parkinsons disease (10) Paroxysmal atrial fibrillation (11) Prostate cancer (12) Prostate cancer Surgical Problems: (1) S/p removal of kidney stone (2) S/P small bowel resection Family History Cancer Heart disease Hypertension Kidney stones Social History Smoking Status: Current Some Day Smoker Alcohol Use: none Marital Status: Housing Status: lives alone Occupation Status: retired Current/Historical Medications Scheduled Carbidopa/Levodopa (Sinemet 25MG/100MG), 1 TAB PO QID Cholecalciferol (Vitamin D3), 2,000 UNITS PO DAILY Clopidogrel Bisulfate (Plavix), 75 MG PO DAILY@NOON Cyanocobalamin (Cyanocobalamin), 1 ML SQ MONTHLY Metoprolol Succinate (Toprol Xl), 12.5 MG PO DAILY Pantoprazole (Protonix), 40 MG PO BID Paroxetine HCl (Paroxetine), 20 MG PO DAILY Scheduled PRN Carbamide Peroxide (Otic) (Ear Wax Drops), 5-10 DROPS OT DAILY PRN for ear wax Polyethylene Glycol 3350 (Miralax), 17 GM PO for Constipation Allergies Coded Allergies: Amoxicillin (Verified Allergy, Unknown, ., 07/07/17) Propoxyphene (Verified Allergy, Unknown, DARVON, 07/07/17) Physical Exam Vital Signs Date Time Temp Pulse Resp B/P (MAP) Pulse Ox O2 Delivery O2 Flow Rate FiO2 07/07/17 11:51 76 22 117/66 94 Room Air 07/07/17 11:06 62 07/07/17 10:06 36.9 84 18 95/53 97 Room Air Physical Exam GENERAL: Patient is a healthy-appearing well-nourished 86 year old male HEAD: Normocephalic atraumatic EYES: Ocular movements intact pupils equal and react to light OROPHARYNX mucous membranes are moist no exudates present no erythema or edema present NECK: Supple no nuchal rigidity, pt c/o pain at C1/C2 CHEST: Good equal expansion LUNGS: Clear and equal to auscultation CARDIAC: Normal S1 and S2 ABDOMEN: Soft nontender no guarding BACK: No CVA tenderness EXTREMITIES: 2.6 cm laceration to the left proximal forearm, large skin tear to the distal humerus, small dime-sized avulsion to the elbow. He cannot lift the left leg, NVI. NEURO: Patient is following commands and answering questions appropriately. Alert and oriented x3 Cranial Nerves 2-12 grossly intact Medical Decision & Procedures ER Provider Diagnostic Interpretation: Radiology results as stated below per my review and radiologist interpretation: PELVIS 1 OR 2 VIEW ROUTINE CLINICAL HISTORY: Left hip pain trauma COMPARISON STUDY: No previous studies for comparison. FINDINGS: Prostate patient therapy seeds are visualized. No blastic lesions are evident. There is an equivocal cortical step-off and slight sclerosis of the left femoral neck. A subtle subcapital fracture cannot be excluded. IMPRESSION: Subtle sclerosis and cortical step-off involving the lateral aspect of the femoral neck. A nondisplaced subcapital hip fracture cannot be excluded. Additional imaging of the left hip is recommended if the patient has pain referrable to this area Electronically signed by: Caden Schmitt M.D. 07/07/2017 11:07 AM Dictated Date/Time: 07/07/2017 11:[address] HEAD WITHOUT CONTRAST (CT) CLINICAL HISTORY: Head pain. Head trauma. COMPARISON STUDY: 01/30/2017 TECHNIQUE: Axial CT of the brain is performed from the vertex to the skull base. IV contrast was not administered for this examination. A dose lowering technique was utilized adhering to the principles of ALARA. CT DOSE: 1048.91 mGy.cm FINDINGS: No intra or extra-axial mass lesions are visualized. There is no CT evidence of acute cortical infarction. There is no evidence of midline shift. There is no acute hemorrhage. No calvarial fractures are visualized. There are extensive white matter hypodensities likely on a small vessel basis. There is no evidence of pathologic ventricular dilatation. There is no evidence of acute sinusitis IMPRESSION: No acute intracranial findings Electronically signed by: Caden Schmitt M.D. 07/07/2017 10:52 AM Dictated Date/Time: 07/07/2017 10:49 AM Left FEMUR 2 VIEWS ROUTINE CLINICAL HISTORY: Pt c/o left femur pain. Fall. COMPARISON STUDY: None. FINDINGS: Slightly impacted nondisplaced left femoral neck fracture. No dislocation. The visual pelvic bones are intact. Multiple brachytherapy seeds within the prostate gland. The distal femur appears intact. IMPRESSION: Slightly impacted nondisplaced left femoral neck fracture. Electronically signed by: Deondre Mackay M.D. 07/07/2017 11:12 AM Dictated Date/Time: 07/07/2017 11:11 AM CHEST ONE VIEW PORTABLE HISTORY: Fall. COMPARISON: Chest 01/30/2017. FINDINGS: The heart is normal in size. No pleural effusions. No pneumothorax. Mild interstitial thickening which is likely chronic. Postoperative changes within the right lung, unchanged. No new focal lung consolidations. No acute rib fractures identified. IMPRESSION: Stable postoperative changes within the right lung. Mild interstitial thickening which may be chronic. Otherwise, no acute process within the chest. Electronically signed by: Deondre Mackay M.D. 07/07/2017 11:10 AM Dictated Date/Time: 07/07/2017 11:[address] OF THE CERVICAL SPINE CLINICAL HISTORY: Neck pain status post trauma COMPARISON STUDY: 01/28/2017 CT DOSE: TECHNIQUE: CT scan of the cervical spine was performed from the skull base to the thoracic inlet. Images are reviewed in the axial, sagittal, and coronal planes. IV contrast was not administered for this examination. A dose lowering technique was utilized adhering to the principles of ALARA. FINDINGS: There is no evidence of pneumothorax. There are biapical opacities right greater than left, likely representing areas of apical pleural and parenchymal scarring. The prevertebral soft tissues are normal. No fractures or subluxations are visualized within the cervical spine. There is a minimal superior endplate T3 compression deformity, likely old. There is a small disc bulge/protrusion at the C3-4 level. IMPRESSION: No evidence of acute fracture or traumatic subluxation. Electronically signed by: Caden Schmitt M.D. 07/07/2017 11:00 AM Dictated Date/Time: 07/07/2017 10:[address] OF THE PELVIS AND HIPS WITHOUT CONTRAST CLINICAL HISTORY: Left hip pain following fall. COMPARISON STUDY: CT of the abdomen and pelvis February 15, 2017 pelvis and left femur radiographs performed earlier today. TECHNIQUE: Axial images of the pelvis and hips were obtained without IV contrast. Sagittal and coronal reconstructions were viewed. FINDINGS: Partial ankylosis of the sacroiliac joints is noted. There are brachytherapy seeds within the prostate gland. There is an acute impacted minimally displaced subcapital left femoral neck fracture. There is an acute nondisplaced fracture of the medial left pubic bone. Trabeculated bladder wall is again noted. No additional pelvic fractures are identified. There is no proximal right femoral fracture. IMPRESSION: 1. Acute minimally displaced impacted subcapital left femoral neck fracture. 2. Acute nondisplaced medial left pubic bone fracture. Electronically signed by: Adolfo Simental M.D. 07/07/2017 12:09 PM Dictated Date/Time: 07/07/2017 12:00 PM Laboratory Results 07/07/17 10:30 Red Blood Count 3.34, Mean Corpuscular Volume 94.3, Mean Corpuscular Hemoglobin 30.8, Mean Corpuscular Hemoglobin Concent 32.7, Mean Platelet Volume 9.3, Neutrophils (%) (Auto) 79.2, Lymphocytes (%) (Auto) 10.0, Monocytes (%) (Auto) 7.4, Eosinophils (%) (Auto) 2.6, Basophils (%) (Auto) 0.3, Neutrophils # (Auto) 11.59, Lymphocytes # (Auto) 1.46, Monocytes # (Auto) 1.09, Eosinophils # (Auto) 0.38, Basophils # (Auto) 0.05 07/07/17 10:30 Test 07/07/17 10:30 07/07/17 11:43 White Blood Count 14.65 K/uL (4.8-10.8) Red Blood Count 3.34 M/uL (4.7-6.1) Hemoglobin 10.3 g/dL (14.0-18.0) Hematocrit 31.5 % (42-52) Mean Corpuscular Volume 94.3 fL (80-100) Mean Corpuscular Hemoglobin 30.8 pg (25-34) Mean Corpuscular Hemoglobin Concent 32.7 g/dl (32-36) Platelet Count 273 K/uL (130-400) Mean Platelet Volume 9.3 fL (7.4-10.4) Neutrophils (%) (Auto) 79.2 % Lymphocytes (%) (Auto) 10.0 % Monocytes (%) (Auto) 7.4 % Eosinophils (%) (Auto) 2.6 % Basophils (%) (Auto) 0.3 % Neutrophils # (Auto) 11.59 K/uL (1.4-6.5) Lymphocytes # (Auto) 1.46 K/uL (1.2-3.4) Monocytes # (Auto) 1.09 K/uL (0.11-0.59) Eosinophils # (Auto) 0.38 K/uL (0-0.5) Basophils # (Auto) 0.05 K/uL (0-0.2) RDW Standard Deviation 47.8 fL (36.4-46.3) RDW Coefficient of Variation 13.9 % (11.5-14.5) Immature Granulocyte % (Auto) 0.5 % Immature Granulocyte # (Auto) 0.08 K/uL (0.00-0.02) Prothrombin Time 10.8 SECONDS (9.0-12.0) Prothromb Time International Ratio 1.0 (0.9-1.1) Activated Partial Thromboplast Time 25.2 SECONDS (21.0-31.0) Partial Thromboplastin Ratio 1.0 Anion Gap 11.0 mmol/L (3-11) Est Creatinine Clear Calc Drug Dose 14.0 ml/min Estimated GFR () 21.6 Estimated GFR (Non- 18.6 BUN/Creatinine Ratio 10.4 (10-20) Calcium Level 8.0 mg/dl (8.5-10.1) Creatine Kinase MB Ratio (0-3.0) Labs reviewed by ED physician. Medications Administered Medications (Trade) Dose Ordered Sig/Jennifer Route Start Time Stop Time Status Last Admin Dose Admin Hydromorphone HCl (Dilaudid Inj) 0.25 mg Q20M PRN IV 07/07/17 10:15 07/07/17 13:22 DC 07/07/17 11:55 0.25 MG Ondansetron HCl (Zofran Inj) 4 mg NOW STAT IV 07/07/17 10:12 07/07/17 10:16 DC 07/07/17 10:37 4 MG ECG Indication: other Rate (beats per minute): 62 Rhythm: normal sinus Findings: no acute ischemic change, no ectopy ED Course 1009: Past medical records reviewed. The patient was evaluated in room A10. A complete history and physical examination was performed. 1012: Zofran 4 mg IV 1015: Dilaudid 0.25 mg IV - PRN 1140: I reassessed the patient at this time. He is feeling better and resting comfortably. I discussed the results and treatment plan with the patient and his family. I answered all pertaining questions that they had. They expressed understanding and verbalized agreement. 1143: I spoke with Mary Romero PA-C. We discussed the patients case. [facility] Medical Decision Differential diagnosis: Etiologies such as fracture, dislocation, intra-abdominal, pneumothorax, intrathoracic , intracranial, neurologic, as well as other traumatic pathologies were entertained. This is an 86-year-old male who presents emergency department complaining of left hip pain after a fall. The patient appears to have a impacted femur fracture. He was sent for CAT scan of the head and neck. As the patient continued to have neck pain he was placed in a [place] J collar. I will note that the patient has multiple comorbidities and is on dual antiplatelet therapy. An IV was established, the patient was given Dilaudid for his pain along with Zofran. Repeat examination revealed improvement patient's symptoms. I did discuss the case with both the hospitalist as well as the orthopedic surgeon on-call. Medication Reconcilliation Current Medication List: was personally reviewed by me Blood Pressure Screening Patient's blood pressure: Normal blood pressure Consults Time Called: 1141 Consulting Physician: Mary Romero PA-C Returned Call: 1143 I spoke with Mary Romero PA-C. We discussed the patients case. [facility] Impression Primary Impression: Fall Additional Impression: Hip fracture Scribe Attestation The scribe's documentation has been prepared under my direction and personally reviewed by me in its entirety. I confirm that the note above accurately reflects all work, treatment, procedures, and medical decision making performed by me. Departure Information Dispostion Being Evaluated By Hospitalist Referrals BRIANNE MARTINEZ (PCP) Patient Instructions My [facility] Problem Qualifiers Primary Impression: Fall Encounter type: initial encounter Qualified Codes: W19.XXXA - Unspecified fall, initial encounter Additional Impression: Hip fracture Encounter type: initial encounter Fracture type: closed Laterality: left Qualified Codes: S72.002A - Fracture of unspecified part of neck of left femur , initial encounter for closed fracture
[2017-07-07] MEDS: HYDROmorphone INJ 0.5 MG/0.5 ML SYR IV PRN ×5 (10:37→22:21)
--- NOTE | 2017-07-07 10:53 | DIAGNOSTIC IMAGING REPORT ---
CT HEAD WITHOUT CONTRAST (CT) CLINICAL HISTORY: Head pain. Head trauma. COMPARISON STUDY: 01/30/2017 TECHNIQUE: Axial CT of the brain is performed from the vertex to the skull base. IV contrast was not administered for this examination. A dose lowering technique was utilized adhering to the principles of ALARA. CT DOSE: 1048.91 mGy.cm FINDINGS: No intra or extra-axial mass lesions are visualized. There is no CT evidence of acute cortical infarction. There is no evidence of midline shift. There is no acute hemorrhage. No calvarial fractures are visualized. There are extensive white matter hypodensities likely on a small vessel basis. There is no evidence of pathologic ventricular dilatation. There is no evidence of acute sinusitis IMPRESSION: No acute intracranial findings Electronically signed by: Caden Schmitt M.D. 07/07/2017 10:52 AM Dictated Date/Time: 07/07/2017 10:49 AM
[2017-07-07] MEDS ORDERED: PANT40TA PO (10:59)
[2017-07-07 11:01] LABS: BASO % 0.3 %; BASO ABS # 0.05 K/uL (0-0.2); COMPLETE YES; EOS % 2.6 %; HEMATOCRIT 31.5 % (42-52); IG% 0.5 %; LYMPH ABS # 1.46 K/uL (1.2-3.4); MEAN CELL VOLUME 94.3 fL (80-100); MEAN CORPUSCULAR HEMOGLOBIN 30.8 pg (25-34); MEAN CORPUSCULAR HGB CONC 32.7 g/dl (32-36); MEAN PLATELET VOLUME 9.3 fL (7.4-10.4); MONO % 7.4 %; NEUT % 79.2 %; PLATELET COUNT 273 K/uL (130-400); RED BLOOD COUNT 3.34 M/uL (4.7-6.1); WHITE BLOOD COUNT 14.65 K/uL (4.8-10.8)
[2017-07-07] MEDS ORDERED: POLY335019 PO (11:01)
[2017-07-07] MEDS ORDERED: [UNRECOGNIZED DRUG - CODE] OT (11:01)
--- NOTE | 2017-07-07 11:02 | DIAGNOSTIC IMAGING REPORT ---
CT OF THE CERVICAL SPINE CLINICAL HISTORY: Neck pain status post trauma COMPARISON STUDY: 01/28/2017 CT DOSE: TECHNIQUE: CT scan of the cervical spine was performed from the skull base to the thoracic inlet. Images are reviewed in the axial, sagittal, and coronal planes. IV contrast was not administered for this examination. A dose lowering technique was utilized adhering to the principles of ALARA. FINDINGS: There is no evidence of pneumothorax. There are biapical opacities right greater than left, likely representing areas of apical pleural and parenchymal scarring. The prevertebral soft tissues are normal. No fractures or subluxations are visualized within the cervical spine. There is a minimal superior endplate T3 compression deformity, likely old. There is a small disc bulge/protrusion at the C3-4 level. IMPRESSION: No evidence of acute fracture or traumatic subluxation. Electronically signed by: Caden Schmitt M.D. 07/07/2017 11:00 AM Dictated Date/Time: 07/07/2017 10:56 AM
[2017-07-07 11:09] LABS: PROTHROMBIN TIME (PATIENT) 10.8 SECONDS (9.0-12.0)
--- NOTE | 2017-07-07 11:09 | DIAGNOSTIC IMAGING REPORT ---
PELVIS 1 OR 2 VIEW ROUTINE CLINICAL HISTORY: Left hip pain trauma COMPARISON STUDY: No previous studies for comparison. FINDINGS: Prostate patient therapy seeds are visualized. No blastic lesions are evident. There is an equivocal cortical step-off and slight sclerosis of the left femoral neck. A subtle subcapital fracture cannot be excluded. IMPRESSION: Subtle sclerosis and cortical step-off involving the lateral aspect of the femoral neck. A nondisplaced subcapital hip fracture cannot be excluded. Additional imaging of the left hip is recommended if the patient has pain referrable to this area Electronically signed by: Caden Schmitt M.D. 07/07/2017 11:07 AM Dictated Date/Time: 07/07/2017 11:04 AM
--- NOTE | 2017-07-07 11:12 | DIAGNOSTIC IMAGING REPORT ---
CHEST ONE VIEW PORTABLE HISTORY: Fall. COMPARISON: Chest 01/30/2017. FINDINGS: The heart is normal in size. No pleural effusions. No pneumothorax. Mild interstitial thickening which is likely chronic. Postoperative changes within the right lung, unchanged. No new focal lung consolidations. No acute rib fractures identified. IMPRESSION: Stable postoperative changes within the right lung. Mild interstitial thickening which may be chronic. Otherwise, no acute process within the chest. Electronically signed by: Deondre Mackay M.D. 07/07/2017 11:10 AM Dictated Date/Time: 07/07/2017 11:09 AM
--- NOTE | 2017-07-07 11:14 | DIAGNOSTIC IMAGING REPORT ---
Left FEMUR 2 VIEWS ROUTINE CLINICAL HISTORY: Pt c/o left femur pain. Fall. COMPARISON STUDY: None. FINDINGS: Slightly impacted nondisplaced left femoral neck fracture. No dislocation. The visual pelvic bones are intact. Multiple brachytherapy seeds within the prostate gland. The distal femur appears intact. IMPRESSION: Slightly impacted nondisplaced left femoral neck fracture. Electronically signed by: Deondre Mackay M.D. 07/07/2017 11:12 AM Dictated Date/Time: 07/07/2017 11:11 AM
[2017-07-07 11:36] LABS: BUN/CREATININE RATIO 10.4 (10-20); CREATININE 2.9 mg/dl (0.60-1.40)
--- NOTE | 2017-07-07 12:10 | DIAGNOSTIC IMAGING REPORT ---
CT OF THE PELVIS AND HIPS WITHOUT CONTRAST CLINICAL HISTORY: Left hip pain following fall. COMPARISON STUDY: CT of the abdomen and pelvis February 15, 2017 pelvis and left femur radiographs performed earlier today. TECHNIQUE: Axial images of the pelvis and hips were obtained without IV contrast. Sagittal and coronal reconstructions were viewed. FINDINGS: Partial ankylosis of the sacroiliac joints is noted. There are brachytherapy seeds within the prostate gland. There is an acute impacted minimally displaced subcapital left femoral neck fracture. There is an acute nondisplaced fracture of the medial left pubic bone. Trabeculated bladder wall is again noted. No additional pelvic fractures are identified. There is no proximal right femoral fracture. IMPRESSION: 1. Acute minimally displaced impacted subcapital left femoral neck fracture. 2. Acute nondisplaced medial left pubic bone fracture. Electronically signed by: Adolfo Simental M.D. 07/07/2017 12:09 PM Dictated Date/Time: 07/07/2017 12:00 PM
[2017-07-07] MEDS ORDERED: POLYETHYLENE (MIRALAX) 17 GM PACK PO PRN ×2 (12:30→13:15)
[2017-07-07] MEDS ORDERED: MAGNESIUM HYDROXIDE SUSP 30 ML UDC PO PRN (12:30)
[2017-07-07] MEDS ORDERED: HYDROmorphone INJ 0.5 MG/0.5 ML SYR IV PRN (12:30)
[2017-07-07] MEDS ORDERED: SOD PHOSPHATE/SOD BIPHOSPHATE ENEMA 132 ML BTL PR PRN (12:30)
[2017-07-07] MEDS ORDERED: NALOXONE HCL 0.4 MG/1 ML VIAL/CARP IV PRN (12:30)
[2017-07-07] MEDS ORDERED: ONDANSETRON INJ 2 MG/ML 2 ML VIAL IV ONE (12:30)
[2017-07-07] MEDS ORDERED: BISACODYL 10 MG SUPP PR PRN (12:30)
[2017-07-07 12:33] VITALS: Ht 180.3 cm; Wt 55.0 kg
[2017-07-07 12:50] VITALS: BP 133/66; PULSE 82; TEMP 36.7; O2SAT 91
[2017-07-07 13:07] LABS: URINE APPEARANCE CLEAR (CLEAR); URINE BILIRUBIN NEG (NEG); URINE COLOR YELLOW; URINE NITRITE NEG (NEG); URINE SPECIFIC GRAVITY 1.016 (1.000-1.030); UROBILINOGEN NEG (NEG); ZZURINE CULT IF INDIC CATH NO
[2017-07-07 13:15] LABS: MANUAL MICROSCOPIC REQUIRED? NO; REVIEW REQ? NO
[2017-07-07] MEDS ORDERED: CARBAMIDE PEROXIDE 6.5% 15 ML BTL OT PRN (13:15)
--- NOTE | 2017-07-07 13:59 | History and Physical ---
History & Physical Date & Time of Service: Jul 07, 2017 at 13:11 Chief Complaint: FALL Primary Care Physician: Drew Cheung D.O. History of Present Illness Source: patient, clinic records, hospital records This is an 86 y/o male with PMH of CAD s/p aborted LA in December 2016, HTN, remote paroxysmal Afib, CKD IV, Parkinson's disease, Chron's disease, and other problems listed below who presents to the ED with left hip pain s/p fall. Patient was feeling at baseline when today he fell while ambulating from restroom to bedroom at [facility] where he resides. Unclear if he was using his walker. Unsure what made him fall. Denies dizziness or LOC. He reports hitting his head and sustaining skin tears to the left arm. Reports posterior neck pain, now in c-spine collar. No headache. Developed left hip pain with the fall, was able to get up with assistance, then was brought to the ER by his [id number]. Received Dilaudid in ER, became nauseous after administered, which resolved with Zofran. States pain is now controlled. Notes he has been having 2-3 loose BM per day which he attributes to unknown med change. Denies COLLINS but he only ambulates short distances. No stair climbing. He denies recent fever, URI, cough, SOB, chest pain, palpitations, abdominal pain, vomiting, GI bleeding, dysuria, increased urinary frequency or urgency. 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/02/2017 at [facility] Status: Chronic (5) Hypertension Status: Chronic (6) Kidney stones Status: Resolved (7) Left ureteral calculus Status: Resolved (8) Parkinsons disease Status: Chronic (9) Paroxysmal atrial fibrillation Permanent Comment: single episode of paroxysmal atrial fibrillation occurring in the setting of acute illness > 10 years ago Status: Chronic (10) Prostate cancer Status: Resolved (11) Prostate cancer Status: Chronic Surgical Problems: (1) S/p removal of kidney stone Status: Chronic (2) S/P small bowel resection Status: Chronic Family History Cancer Heart disease Hypertension Kidney stones Social History Smoking Status: Current Every Day Smoker (1-2 cigarettes per day) Alcohol Use: none Drug Use: none Marital Status: Housing status: lives alone Occupational Status: retired Immunizations History of Influenza Vaccine: Yes History of Tetanus Vaccine?: Yes History of Pneumococcal: Yes History of Hepatitis B Vaccine: No Multi-Drug Resistant Organisms History of MDRO: No Allergies Coded Allergies: Amoxicillin (Verified Allergy, Unknown, ., 07/07/17) Propoxyphene (Verified Allergy, Unknown, DARVON, 07/07/17) Home Medications Scheduled Carbidopa/Levodopa (Sinemet 25MG/100MG), 1 TAB PO QID Cholecalciferol (Vitamin D3), 2,000 UNITS PO DAILY Clopidogrel Bisulfate (Plavix), 75 MG PO DAILY@NOON Cyanocobalamin (Cyanocobalamin), 1 ML SQ MONTHLY Metoprolol Succinate (Toprol Xl), 12.5 MG PO DAILY Pantoprazole (Protonix), 40 MG PO BID Paroxetine HCl (Paroxetine), 20 MG PO DAILY Scheduled PRN Carbamide Peroxide (Otic) (Ear Wax Drops), 5-10 DROPS OT DAILY PRN for ear wax Polyethylene Glycol 3350 (Miralax), 17 GM PO for Constipation Review of Systems Ten systems reviewed and negative except as noted in HPI. Physical Exam Vital Signs Date Time Temp Pulse Resp B/P (MAP) Pulse Ox O2 Delivery O2 Flow Rate FiO2 07/07/17 12:33 Room Air 07/07/17 12:12 87 07/07/17 11:51 76 22 117/66 94 Room Air 07/07/17 11:06 62 07/07/17 10:06 36.9 84 18 95/53 97 Room Air General Appearance: + thin, + pertinent finding (elderly male, lying in bed, initially nauseous- resolved with zofran, then no distress. daughter in law at bedside.) Head: normocephalic, atraumatic Eyes: normal inspection, PERRL, EOMI, sclerae normal ENT: hearing grossly normal, pharynx normal Neck: + pertinent finding (c-spine collar in place) Respiratory/Chest: lungs clear (anteriorly), normal breath sounds, no respiratory distress, no accessory muscle use Cardiovascular: regular rate, rhythm, no murmur Abdomen/GI: normal bowel sounds, non tender, soft Extremities/Musculoskelatal: no calf tenderness, no pedal edema, + pertinent finding (left hip ROM not examined 2/2 pain.) Neurologic/Psych: alert, normal mood/affect, oriented x 3, + pertinent finding (bilateral ankle flexion/ extension 5/5) Skin: normal color, warm/dry Diagnostics Laboratory Results Results Past 24 Hours Test 07/07/17 10:30 07/07/17 11:43 07/07/17 11:59 Range/Units White Blood Count 14.65 4.8-10.8 K/uL Red Blood Count 3.34 4.7-6.1 M/uL Hemoglobin 10.3 14.0-18.0 g/dL Hematocrit 31.5 42-52 % Mean Corpuscular Volume 94.3 80-100 fL Mean Corpuscular Hemoglobin 30.8 25-34 pg Mean Corpuscular Hemoglobin Concent 32.7 32-36 g/dl Platelet Count 273 130-400 K/uL Mean Platelet Volume 9.3 7.4-10.4 fL Neutrophils (%) (Auto) 79.2 % Lymphocytes (%) (Auto) 10.0 % Monocytes (%) (Auto) 7.4 % Eosinophils (%) (Auto) 2.6 % Basophils (%) (Auto) 0.3 % Neutrophils # (Auto) 11.59 1.4-6.5 K/uL Lymphocytes # (Auto) 1.46 1.2-3.4 K/uL Monocytes # (Auto) 1.09 0.11-0.59 K/uL Eosinophils # (Auto) 0.38 0-0.5 K/uL Basophils # (Auto) 0.05 0-0.2 K/uL RDW Standard Deviation 47.8 36.4-46.3 fL RDW Coefficient of Variation 13.9 11.5-14.5 % Immature Granulocyte % (Auto) 0.5 % Immature Granulocyte # (Auto) 0.08 0.00-0.02 K/uL Prothrombin Time 10.8 9.0-12.0 SECONDS Prothromb Time International Ratio 1.0 0.9-1.1 Activated Partial Thromboplast Time 25.2 21.0-31.0 SECONDS Partial Thromboplastin Ratio 1.0 Sodium Level 143 136-145 mmol/L Potassium Level 4.0 3.5-5.1 mmol/L Chloride Level 112 98-107 mmol/L Carbon Dioxide Level 20 21-32 mmol/L Anion Gap 11.0 3-11 mmol/L Blood Urea Nitrogen 30 7-18 mg/dl Creatinine 2.90 0.60-1.40 mg/dl Est Creatinine Clear Calc Drug Dose 14.0 ml/min Estimated GFR () 21.6 Estimated GFR (Non- 18.6 BUN/Creatinine Ratio 10.4 10-20 Random Glucose 127 70-99 mg/dl Calcium Level 8.0 8.5-10.1 mg/dl Creatine Kinase MB Ratio 0-3.0 Diagnostic Radiology PELVIS 1 OR 2 VIEW ROUTINE IMPRESSION: Subtle sclerosis and cortical step-off involving the lateral aspect of the femoral neck. A nondisplaced subcapital hip fracture cannot be excluded. Additional imaging of the left hip is recommended if the patient has pain referrable to this area CT HEAD WITHOUT CONTRAST (CT) IMPRESSION: No acute intracranial findings Left FEMUR 2 VIEWS ROUTINE IMPRESSION: Slightly impacted nondisplaced left femoral neck fracture. CHEST ONE VIEW PORTABLE IMPRESSION: Stable postoperative changes within the right lung. Mild interstitial thickening which may be chronic. Otherwise, no acute process within the chest. CT OF THE CERVICAL SPINE IMPRESSION: No evidence of acute fracture or traumatic subluxation. CT OF THE PELVIS AND HIPS WITHOUT CONTRAST 1. Acute minimally displaced impacted subcapital left femoral neck fracture. 2. Acute nondisplaced medial left pubic bone fracture. EKG poor quality EKG, regular rhythm, possible junctional vs sinus, rate 62 bpm, no clear ST or T wave abnormality. Will obtain repeat EKG for better quality tracing. Impression Assessment and Plan LEFT FEMUR FRACTURE/ LEFT PUBIC BONE FRACTURE Admit to med/ surg, hip fracture management per protocol Pain control with IV Dilaudid Consult Alpesh ordonez PA-C aware Preop workup- CXR unremarkable, labs show chronic anemia, creatinine at baseline , UA-negative, recheck EKG (initial tracing poor quality) Consult anesthesiology and cardiology (known to Dr. Kelley) for preop evaluation , at risk due to CAD with recent aborted LA in 12/2016, CKD IV CAD History of acute but aborted inferior posterior myocardial infarction on 2016 at [facility], placed on dual antiplatelet at that time As per Dr. Kelley's clinic note, was supposed to be on dual antiplatelet for at least 6 months as long as tolerated, now on Plavix only (past 6 month ilda) Continue beta virginia, will keep on Plavix until otherwise instructed by cardiology CKD IV Creatinine is at baseline Monitor renal function Avoid nephrotoxins HYPERTENSION BP 90s->110s in ER Gentle IVF's Continue Toprol 12.5 mg daily with parameters PAROXYSMAL ATRIAL FIBRILLATION Hx single episode of paroxysmal atrial fibrillation occurring in the setting of acute illness > 10 years ago Taken off Coumadin in December 2016 Currently in regular rhythm with controlled rate, continue beta virginia CHRON'S DISEASE Reports of diarrhea, unclear duration, but no GI bleeding or abdominal pain, benign abdomen on exam Hold Miralax, If further diarrhea consider stool studies PARKINSON'S DISEASE Continue Sinemet DEPRESSION Continue paroxetine GERD Continue PPI DVT PROPHYLAXIS SCD's CODE STATUS DNR per my discussion with the patient DISPOSITION Follows with Dr. Cheung for primary care Resides at [facility] Patient seen in collaboration with Dr. Reyes. Please see his addendum. Attending Addendum Pt was seen and examined. Agreed with Shoan LOWE exam, assessment and plan. 86 y/o male with PMH of CAD s/p LA in December 2016, HTN, CKD IV, Parkinson's disease, Chron's disease presents to the ED with left hip pain due to a fall while ambulating from the restroom to his bedroom. Pt resides at [facility]. He has been having left hip pain since the fall and unable to get up with assistance. He had a left femur xray done that showed slightly impacted nondisplaced left femoral neck fracture. CT plevis showed Acute minimally displaced impacted subcapital left femoral neck fracture and Acute nondisplaced medial left pubic bone fracture. Ortho consulted and plan to schedule for OR tomorrow. Cardiology consulted for cardiac clearance since pt is very high risk for the procedure. Continue pain management. will hold dvt px in the morning for the procedure and keep NPO after midnight. Continue metoprolol. Lab, imaging, EKG reviewed Please refer to Shona PEPE documentation for other problems. Loyda Reyes MD Advanced Directives Existing Living Will: No Existing Power of Drawing Frame Tender: No Resuscitation Status DO NOT RESUSCITATE VTE Prophylaxis VTE Risk Assessment Done? Y/N: Yes Risk Level: High Given or contraindicated: SCD's
[2017-07-07 14:22] LABS: CKMB/CK RATIO 2.6 (0-3.0)
--- NOTE | 2017-07-07 14:36 | CARDIOLOGY CONSULTATION ---
DATE OF CONSULTATION: 07/07/2017 CONSULTATION FOR: The orthopedic service. REASON FOR CONSULTATION: Preoperative risk assessment. HISTORY OF PRESENT ILLNESS: The patient is an elderly 86-year-old male patient with a history of Crohn's disease and Parkinson's disease. He has a remote history of atrial fibrillation that occurred during an illness in 2003, but has not really had a reoccurrence since. He has had a history of an unsteady gait due to the Parkinson's with previous falls. He fell again today, fracturing his hip and has been admitted from the Emergency Department with anticipation of surgery. I am asked to give cardiac risk assessment. The patient usually follows with Dr. Kelley as an outpatient. Up until this year, the patient's heart disease has been fairly stable. Then in December, after eating a meal developed severe epigastric discomfort and dizziness. When the paramedics were dispatched, his initial EKG in the field showed ST segment elevation in the inferior lateral leads suggesting an acute AK. However, by the time he arrived to the hospital, his pain had resolved and the EKG showed no acute changes. During that hospital admission, he had no elevation in his cardiac markers. An echocardiogram was obtained that showed overall preserved left ventricular systolic function with an estimated left ventricular ejection fraction of between 55% and 60%. There is mention in the report of some mild inferior wall hypokinesis. No significant valvular pathology other than moderate mitral regurgitation and mild tricuspid regurgitation. The patient was started on Plavix, aspirin and continued on warfarin. Then, he represented in January with low hemoglobin and at that point, the warfarin was discontinued. According to the patient and his daughter, he has been taking Plavix as an outpatient. He does not state why the aspirin was discontinued, but I can only assume it was because of the thoughts of GI bleeding. He has not had any evidence of bleeding or low hemoglobin counts since the events in January. His hemoglobin on admission today is 10.3. The patient has had no recent activity related chest pain or shortness of breath. He has had no heart palpitations or tachycardia. The event today was definitely a mechanical fall, which he has had several in the past due to his Parkinson's disease. He has no cardiac complaints today. ALLERGIES: AMOXICILLIN AND PROPOXYPHENE. PAST MEDICAL HISTORY: As per the history of chief complaint. The patient has had Crohn's disease with a previous history of GI bleeding. He has a remote history of paroxysmal atrial fibrillation with no recent evidence of atrial arrhythmias. He had some sort of event in December, which is described in the records as an aborted inferior wall myocardial infarction; however, as mentioned, his cardiac markers were not elevated after admission. He was treated for hypertension. He has Parkinson's disease with balance issues and has had a history of multiple falls in the past. He has chronic renal insufficiency. SOCIAL HISTORY: He lives in [facility]. He is currently a nonsmoker. FAMILY MEDICAL HISTORY: Noncontributory. REVIEW OF SYSTEMS: A 10-point review of systems is negative except for the history of chief complaint. In addition, he has had no melena, hematochezia, and no hematemesis. PHYSICAL EXAMINATION: GENERAL: He is alert. He is not a good historian. VITAL SIGNS: Blood pressure is 117/70 and pulse is regular at 76. He is afebrile. HEENT: He is normocephalic. Pupils are equal and reactive to light. Extraocular muscles are intact bilaterally. NECK: The neck veins are flat. Carotids have good upstrokes bilaterally without bruits. Thyroid is nonpalpable. RESPIRATORY: Breath sounds equal bilaterally and clear to auscultation. CARDIOVASCULAR: Heart has a regular rhythm. There are no cardiac rubs or murmurs. GASTROINTESTINAL: Abdomen is soft and nontender without organomegaly. EXTREMITIES: Free of edema, digit clubbing, or cyanosis. NEUROLOGIC: Grossly intact. SKIN: Warm to touch. LYMPH NODES: Negative to palpation. LABORATORY DATA: Hemoglobin is 10.3 and WBC count is 14.6. Potassium is 4.0. Creatinine is 2.9. BUN is 30. EKG has baseline artifact. I believe this is most likely a sinus rhythm. I will ask him to redo the EKG. IMPRESSION: 1. Hip fracture due to mechanical fall. 2. Parkinson's disease with balance issues. 3. History of Crohn's disease. 4. Possible aborted inferior wall myocardial infarction in December. 5. Low hemoglobin, possibly due to GI bleeding, but basically unknown. 6. 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 RECOMMENDATIONS: This patient is at high risk for any surgical procedures. No additional cardiac testing will change this risk assessment. He is at high risk due to his multiple medical problems as well as his cardiac events earlier this year. He obviously will need to have the hip fracture stabilized. I think he should proceed with the surgery with the accepted risk that he has. We will try to optimally medicate him for the surgery. I will stop his Plavix to decrease the risk of bleeding; however, I think it would be beneficial for him to at least be on aspirin 81 mg daily. He will need DVT prophylaxis. I also believe that he would benefit from a medicine consult to help with management. KAM
[2017-07-07] MEDS: SODIUM CHLORIDE 0.9% 1000ML 1,000 ML IV SCH ×2 (14:51→22:08)
[2017-07-07 15:21] VITALS: BP 120/63; PULSE 91; TEMP 36.4; O2SAT 93
--- NOTE | 2017-07-07 17:07 | Orthopedic Consultation ---
Orthopedic Consultation Date of Consultation: Jul 07, 2017. Attending Physician: Loyda Reyes M.D. Reason for Consultation: The femoral neck fracture History of Present Illness 86-year-old male with history of Parkinson's and numerous other medical conditions on Plavix who sustained a fall. He is previously an ambulator at his group home. It was uncertain whether he is using his walker at the time of this fall. He is heading to the restroom. Uncertain if there is loss of consciousness. He is complaining of neck pain and is still currently complaining of neck pain. CT scan is neck was negative for fracture. Not complaining of any hip pain at rest. Past Medical/Surgical History Medical Problems: (1) 9786 Status: Acute (2) 34838 Status: Acute (3) Acute coronary syndrome Status: Acute (4) Acute GI bleeding Status: Acute (5) Contusion Status: Acute (6) Dehydration Status: Acute (7) Dehydration Status: Acute (8) Diarrhea Status: Acute (9) Diarrhea Status: Acute (10) Fall Status: Acute (11) Fall Status: Acute (12) Head injury Status: Acute (13) Head injury, closed Status: Acute (14) Hematuria Status: Acute (15) Hematuria Status: Acute (16) Laceration Status: Acute (17) Nausea Status: Acute (18) Postconcussion syndrome Status: Acute Family History Cancer Heart disease Hypertension Kidney stones Social History Smoking Status: Current Every Day Smoker (1-2 cigarettes per day) Alcohol Use: none Drug Use: none Marital Status: Housing Status: lives alone Occupation Status: retired Allergies Coded Allergies: Amoxicillin (Verified Allergy, Unknown, ., 07/07/17) Propoxyphene (Verified Allergy, Unknown, DARVON, 07/07/17) Home Medications Scheduled Carbidopa/Levodopa (Sinemet 25MG/100MG), 1 TAB PO QID Cholecalciferol (Vitamin D3), 2,000 UNITS PO DAILY Clopidogrel Bisulfate (Plavix), 75 MG PO DAILY@NOON Cyanocobalamin (Cyanocobalamin), 1 ML SQ MONTHLY Metoprolol Succinate (Toprol Xl), 12.5 MG PO DAILY Pantoprazole (Protonix), 40 MG PO BID Paroxetine HCl (Paroxetine), 20 MG PO DAILY Scheduled PRN Carbamide Peroxide (Otic) (Ear Wax Drops), 5-10 DROPS OT DAILY PRN for ear wax Polyethylene Glycol 3350 (Miralax), 17 GM PO for Constipation Current Inpatient Medications Current Inpatient Medications Medications (Trade) Dose Ordered Sig/Jennifer Route Start Time Stop Time Status Last Admin Dose Admin Sodium Chloride 1,000 ml @ 100 mls/hr Q10H IV 07/07/17 12:23 08/06/17 12:22 07/07/17 14:51 100 MLS/HR Clindamycin Phosphate 900 mg/ Dextrose 106 ml @ 106 mls/hr PREOP IV 07/07/17 06:00 07/07/17 23:59 Hydromorphone HCl (Dilaudid Inj) 0.25 mg Q20M PRN IV 07/07/17 12:30 07/21/17 12:29 Hydromorphone HCl (Dilaudid Inj) 0.5 mg Q20M PRN IV 07/07/17 12:30 07/21/17 12:29 Naloxone HCl (Narcan Inj) 0.1 mg PRN PRN IV 07/07/17 12:30 08/06/17 12:29 Senna/Docusate Sodium (Senokot S Tab) 2 tab HS PO 07/07/17 21:00 08/06/17 20:59 Magnesium Hydroxide (Milk Of Magnesia Susp) 30 ml DAILY PRN PO 07/07/17 12:30 08/06/17 12:29 Bisacodyl (Dulcolax Supp) 10 mg DAILY PRN [place] 07/07/17 12:30 08/06/17 12:29 Sodium Biphosphate/ Sodium Phosphate (Fleet Enema) 132 ml PRN PRN [place] 07/07/17 12:30 07/07/17 23:59 Carbamide Peroxide (Earwax Removal Soln) Instill 5-10 drops into e... DAILY PRN OT 07/07/17 13:15 07/11/17 13:14 Carbidopa/Levodopa (Sinemet 25/ 100MG Tab) 1 tab QID@0700,1100,1600,1900 PO 07/07/17 16:00 08/06/17 15:59 Metoprolol Succinate (Toprol Xl Tab) 12.5 mg DAILY PO 07/08/17 09:00 08/07/17 08:59 Pantoprazole Sodium (Protonix Tab) 40 mg BID PO 07/07/17 21:00 08/06/17 20:59 Paroxetine HCl (pAXil TAB) 20 mg DAILY PO 07/08/17 09:00 08/07/17 08:59 Cholecalciferol (Vitamin D Tab) 2,000 inter.unit QAM PO 07/08/17 09:00 08/07/17 08:59 Aspirin (Ecotrin Tab) 81 mg QAM PO 07/08/17 09:00 08/07/17 08:59 Heparin Sodium (Porcine) (Heparin Sq 5000 Unit/0.5ml) 5,000 unit Q12 SQ 07/07/17 21:00 08/06/17 20:59 Physical Exam Date Time Temp Pulse Resp B/P (MAP) Pulse Ox O2 Delivery O2 Flow Rate FiO2 07/07/17 15:21 36.4 91 16 120/63 (82) 93 Room Air 07/07/17 12:50 36.7 82 22 133/66 (88) 91 Room Air 07/07/17 12:33 Room Air 07/07/17 12:12 87 07/07/17 11:51 76 22 117/66 94 Room Air 07/07/17 11:06 62 07/07/17 10:06 36.9 84 18 95/53 97 Room Air Left lower extremity: Light touch sensation and motor function is intact distally. Palpable dorsalis pedis pulse. Pain with internal/external rotation that he locates to the groin. Examination of the contralateral leg is unremarkable General Appearance: no apparent distress Head: normocephalic Eyes: normal inspection Respiratory/Chest: chest non-tender Cardiovascular: no edema Laboratory Results Last 24 Hours Test 07/07/17 10:30 07/07/17 11:59 07/07/17 13:27 White Blood Count 14.65 K/uL Red Blood Count 3.34 M/uL Hemoglobin 10.3 g/dL Hematocrit 31.5 % Mean Corpuscular Volume 94.3 fL Mean Corpuscular Hemoglobin 30.8 pg Mean Corpuscular Hemoglobin Concent 32.7 g/dl Platelet Count 273 K/uL Mean Platelet Volume 9.3 fL Neutrophils (%) (Auto) 79.2 % Lymphocytes (%) (Auto) 10.0 % Monocytes (%) (Auto) 7.4 % Eosinophils (%) (Auto) 2.6 % Basophils (%) (Auto) 0.3 % Neutrophils # (Auto) 11.59 K/uL Lymphocytes # (Auto) 1.46 K/uL Monocytes # (Auto) 1.09 K/uL Eosinophils # (Auto) 0.38 K/uL Basophils # (Auto) 0.05 K/uL RDW Standard Deviation 47.8 fL RDW Coefficient of Variation 13.9 % Immature Granulocyte % (Auto) 0.5 % Immature Granulocyte # (Auto) 0.08 K/uL Prothrombin Time 10.8 SECONDS Prothromb Time International Ratio 1.0 Activated Partial Thromboplast Time 25.2 SECONDS Partial Thromboplastin Ratio 1.0 Sodium Level 143 mmol/L Potassium Level 4.0 mmol/L Chloride Level 112 mmol/L Carbon Dioxide Level 20 mmol/L Anion Gap 11.0 mmol/L Blood Urea Nitrogen 30 mg/dl Creatinine 2.90 mg/dl Est Creatinine Clear Calc Drug Dose 14.0 ml/min Estimated GFR () 21.6 Estimated GFR (Non- 18.6 BUN/Creatinine Ratio 10.4 Random Glucose 127 mg/dl Calcium Level 8.0 mg/dl Urine Color YELLOW Urine Appearance CLEAR Urine pH 5.0 Urine Specific Reform 1.016 Urine Protein NEG Urine Glucose (UA) NEG Urine Ketones NEG Urine Occult Blood NEG Urine Nitrite NEG Urine Bilirubin NEG Urine Urobilinogen NEG Urine Leukocyte Esterase NEG Total Creatine Kinase 66 U/L Creatine Kinase MB 1.7 ng/ml Creatine Kinase MB Ratio 2.6 Troponin I < 0.015 ng/ml Assessment & Plan Left hip Garden 1 mildly impacted valgus femoral neck fracture Given the nature of the fracture my recommendation is for open reduction internal fixation with cannulated screws. He is being cleared medically. Cardiology stated that he is high risk but recommend proceeding with surgery for assistance in mobilization for prevention of displacement of the fracture. We discussed the surgery with the patient's [id number] at the bedside. He will tentatively be placed on the OR schedule for tomorrow for cannulated screw fixation per Dr. Dubon.
[2017-07-07] MEDS: CARBIDOPA/LEVODOPA 25/100MG TAB PO SCH ×2 (17:38→19:52)
[2017-07-07] MEDS ORDERED: HEPARIN SOD 5000 UNIT/0.5 ML CARP SQ SCH (21:00)
[2017-07-07] MEDS: PANTOprazole SOD 40 MG TAB PO SCH (22:08)
[2017-07-07] MEDS: DOCUSATE SODIUM/SENNA 50/8.6MG TAB PO SCH (22:08)
[2017-07-07 22:47] VITALS: BP 140/71; PULSE 84; TEMP 36.8; O2SAT 92
[2017-07-08] VITALS (12 sets, daily range): BP systolic 99–154; BP diastolic 53–85; PULSE 76–86; TEMP 36.6–36.9; O2SAT 88–99
[2017-07-08] MEDS: HYDROmorphone INJ 0.5 MG/0.5 ML SYR IV PRN ×3 (01:05→19:53)
[2017-07-08] MEDS: CARBIDOPA/LEVODOPA 25/100MG TAB PO SCH ×4 (06:37→19:53)
[2017-07-08 07:18] LABS: BASO % 0.2 %; BASO ABS # 0.02 K/uL (0-0.2); COMPLETE YES; HEMATOCRIT 28.5 % (42-52); IG% 0.3 %; LYMPH % 4.2 %; LYMPH ABS # 0.51 K/uL (1.2-3.4); MEAN CELL VOLUME 92.8 fL (80-100); MEAN CORPUSCULAR HEMOGLOBIN 30.9 pg (25-34); MEAN CORPUSCULAR HGB CONC 33.3 g/dl (32-36); MEAN PLATELET VOLUME 9.2 fL (7.4-10.4); MONO % 8.2 %; NEUT % 87.1 %; PLATELET COUNT 220 K/uL (130-400); RED BLOOD COUNT 3.07 M/uL (4.7-6.1); WHITE BLOOD COUNT 12.07 K/uL (4.8-10.8)
[2017-07-08] MEDS: PANTOprazole SOD 40 MG TAB PO SCH ×2 (07:20→21:50)
[2017-07-08] MEDS: ASPIRIN 81 MG ECTAB PO SCH (07:20)
[2017-07-08] MEDS: METOPROLOL SUCC 25MG EXT REL TAB PO SCH (07:21)
[2017-07-08] MEDS: PAROXETINE 20 MG TAB PO SCH (07:22)
[2017-07-08] MEDS: CHOLECALCIFEROL 1000 INTER.UNIT TAB PO SCH (07:22)
[2017-07-08] MEDS: SODIUM CHLORIDE 0.9% 1000ML 1,000 ML IV SCH ×2 (07:30→21:51)
[2017-07-08 07:50] LABS: BUN/CREATININE RATIO 12.1 (10-20); CALCIUM 7.8 mg/dl (8.5-10.1); CREATININE 2.7 mg/dl (0.60-1.40); POTASSIUM 4.6 mmol/L (3.5-5.1)
--- NOTE | 2017-07-08 09:17 | History & Physical Bridge Note ---
H&P Re-Evaluation Bridge Note: I have examined the patient, reviewed the History & Physical and in the interval since the performance of the History & Physical I have noted the following changes of clinical significance: To OR today for ORIF hip fracture.
[2017-07-08] MEDS ORDERED: CLOPIDOGREL BISULFATE 75 MG TAB PO SCH (12:00)
[2017-07-08] MEDS ORDERED: PROPOFOL IV EMULSION 10 MG/ML 20 ML VIAL IV ONE (12:11)
[2017-07-08] MEDS ORDERED: ROCURONIUM BROMIDE 10 MG/ML 5 ML VIAL IV ONE (12:11)
[2017-07-08] MEDS ORDERED: LIDOCAINE HCL 2% 2 ML VIAL (20MG/ML) ONE (12:11)
[2017-07-08] MEDS ORDERED: FENTANYL CITRATE INJ 50 MCG/1 ML 2 ML VIAL ONE ×3 (12:11→14:32)
[2017-07-08] MEDS ORDERED: MEPERIDINE HCL 25 MG/ML CARP IV PRN (12:15)
[2017-07-08] MEDS ORDERED: EpHEDrine SULFATE INJ 50 MG/ML AMP IV PRN (12:15)
[2017-07-08] MEDS ORDERED: ATROPINE SULFATE 0.1 MG/ML 5ML SYR IV PRN (12:15)
[2017-07-08] MEDS ORDERED: LABETALOL HCL IV 5 MG/ML 20ML IV PRN (12:15)
[2017-07-08] MEDS ORDERED: ONDANSETRON INJ 2 MG/ML 2 ML VIAL IV PRN ×2 (12:15→19:15)
[2017-07-08] MEDS ORDERED: HYDROmorphone INJ 1 MG/ML SYR IV PRN (12:15)
[2017-07-08] MEDS ORDERED: FENTANYL CITRATE INJ 50 MCG/1 ML 2 ML VIAL IV PRN (12:15)
[2017-07-08] MEDS ORDERED: BUPIVACAINE 0.5 % 5 MG/1 ML MPF 30ML VIAL ONE (13:04)
[2017-07-08] MEDS ORDERED: CEFAZOLIN SOD 1 GM VIAL ONE (13:20)
[2017-07-08] MEDS ORDERED: ONDANSETRON INJ 2 MG/ML 2 ML VIAL ONE (13:56)
[2017-07-08] MEDS ORDERED: EpHEDrine SULFATE 50MG/5ML SYR ONE (13:56)
[2017-07-08] MEDS ORDERED: NEOSTIGMINE METHYLSULFATE 5 MG/5 ML SYR ONE (13:56)
--- NOTE | 2017-07-08 14:03 | [facility] Post Operative Brief Note ---
Immediate Operative Summary Operative Date Jul 08, 2017. Pre-Operative Diagnosis Left Garden 1 Femoral Neck Fracture Post-Operative Diagnosis Left Garden 1 Femoral Neck Fracture Procedure(s) Performed Open Reduction Internal Fixation Left Hip Femoral Neck Fracture Surgeon Dr. Dubon Box Maker Paperboard Surgeon(s) Jose Baldwin PA-C Estimated Blood Loss 2 cc Findings See Dict Specimens none per surgeon Drains None Anesthesia GETT w/ local Complication(s) None Disposition Recovery Room / PACU
--- NOTE | 2017-07-08 14:08 | DIAGNOSTIC IMAGING REPORT ---
INTRAOPERATIVE RADIOGRAPHS CLINICAL HISTORY: Open reduction and internal fixation of the left femur. Fluoroscopy time: 55 seconds. FINDINGS: 2 spot fluoroscopic views of the left femur are correlated with pelvic radiograph dated 07/07/2017. There are 2 intertrochanteric cortical lag screws present transfixing an impacted subcapital fracture. The orthopedic hardware appears intact. Brachytherapy seeds are noted in the prostate. IMPRESSION: Intraoperative images from open reduction and internal fixation of a left hip. Electronically signed by: Beltran Ugarte M.D. 07/08/2017 2:07 PM Dictated Date/Time: 07/08/2017 2:06 PM
--- NOTE | 2017-07-08 14:46 | Anesthesiology Progress Note ---
Anesthesia Post Op Note Date & Time Jul 08, 2017 at 14:45 Vital Signs Pain Intensity: 3 Vital Signs Past 12 Hours Date Time Temp Pulse Resp B/P (MAP) Pulse Ox O2 Delivery O2 Flow Rate FiO2 07/08/17 14:40 37.1 81 16 153/62 100 Nasal Cannula 2 07/08/17 14:30 77 16 168/99 100 Nasal Cannula 2 07/08/17 14:20 81 16 148/85 100 Oxymask 10 07/08/17 14:10 79 16 161/75 100 Oxymask 10 07/08/17 14:00 36.3 87 16 153/76 100 Oxymask 10 07/08/17 12:04 36.8 86 18 132/65 (87) 98 Nasal Cannula 3.0 07/08/17 08:00 98 Nasal Cannula 3.0 07/08/17 06:57 36.8 86 16 125/77 (93) 98 Nasal Cannula 3.0 07/08/17 03:01 93 Nasal Cannula 3.0 Notes Mental Status: alert / awake / arousable, participated in evaluation Pt Amnestic to Procedure: Yes Nausea / Vomiting: adequately controlled Pain: adequately controlled Airway Patency, RR, SpO2: stable & adequate BP & HR: stable & adequate Hydration State: stable & adequate Anesthetic Complications: no major complications apparent
--- NOTE | 2017-07-08 14:59 | OPERATIVE REPORT ---
DATE OF OPERATION: 07/08/2017 PREOPERATIVE DIAGNOSIS: Left minimally displaced Garden I femoral neck fracture. POSTOPERATIVE DIAGNOSIS: Same. PROCEDURE: Open reduction and internal fixation of left femoral neck fracture. SURGEON: Dr. Dipesh Dubon. ACTIVITY SPECIALIST: Jose Baldwin PA-C. ANESTHESIA: General endotracheal tube with local anesthetic. SPECIMENS: None. DRAINS: None. COMPLICATIONS: None. BLOOD LOSS: 2 mL. PERTINENT HISTORY: This is an 86-year-old gentleman who sustained a trip and fall on his left hip. Unable to ambulate. He was then transferred to [facility], at which point he was evaluated and radiographs were obtained, noting a Garden I minimally displaced left femoral neck fracture with impaction. The patient was admitted to the hospital, optimized for surgery and then scheduled for surgery as indicated. All potential risks, benefits, complications, alternatives, rehab, potential for incomplete relief of symptoms, need for further surgery, DVT, PE, , persistent pain, swelling, scarring, weakness, neurovascular injury, wound complications, hardware failure, nonunion, malunion and the wound complications were discussed with the patient. The patient decided to proceed with the procedure as indicated. DESCRIPTION OF PROCEDURE: The patient was taken to the operative suite, placed supine on the operating room table. The consent was reviewed and proper operative site was identified and then anesthesia was administered appropriately. Next, the patient was placed on the fracture table. The affected limb was placed to padded boot traction and the unaffected leg was placed in a well leg heath, flexed and abducted and slightly externally rotated. The well leg was then padded and protected. All other bony prominences were properly padded and protected. The post was padded in the peroneum. Next, the affected limb was placed under appropriate traction using the fracture table and initial reduction was performed under live fluoroscopic assistance. Next, the affected hip was then sterilely prepped and draped in usual fashion. Next, the greater trochanter of the hip was visualized under C-arm fluoroscopy. A 10 blade scalpel incision was made along the lateral aspect of the hip inferior to the greater trochanter. This incision was then carefully deepened through subcutaneous tissue. Meticulous hemostasis was achieved with electrocautery. Next, the iliotibial band was then incised with a 10 blade scalpel and appropriate bleeders were cauterized as well. Next, using live fluoroscopic assistance 7.3 mm cannulated guide pin was placed into the central aspect of the lateral femur directed into the inferior one-third of the femoral neck and head, inferior and central both confirmed with AP and lateral projections. Next, the cannulated guide was then used to place 2 further 7.3 mm cannulated screw guide pins superior anterior and superior posterior in relation to the inferiorly placed guide pin under AP and lateral live fluoroscopic assistance. Next, the guide pins were all noted to be within 5 mm of the subchondral bone on AP and lateral projections. This was then followed by measurement of the appropriate length for planned screw implantation and then the lateral cortex was drilled, this followed by countersinking of the planned screw sites followed by implantation of the 7.3 mm cannulated screws of appropriate length. This was confirmed under live fluoroscopic assistance. Next, a hand screwdriver was used to tighten the screws to fully seat the fracture and compress it confirmed using x-ray. Next, the guide pins were removed. The wound was copiously irrigated with sterile normal saline. Final x-rays obtained in both AP and lateral projections, followed by final irrigation with sterile normal saline, closure of the fascia with interrupted #1 Vicryl sutures, closure of the dermis with buried interrupted 2-0 Vicryl. The skin was then closed using skin trena. A sterile compressive dressing was applied. The patient was awakened and taken to recovery in stable condition. I attest to the content of the Intraoperative Record and any orders documented therein. Any exception s are noted below.
--- NOTE | 2017-07-08 16:54 | Progress Note ---
Medicine Progress Note Date & Time of Visit: Jul 08, 2017 at 15:06. Subjective Pt was seen and examined Lying in bed with no distress with daughter present Pain said that pain is controlled Denies any chest pain, palpitation, dizziness and SOB Objective Last 8 Hrs Date Time Temp Pulse Resp B/P (MAP) Pulse Ox O2 Delivery O2 Flow Rate FiO2 07/08/17 14:40 37.1 81 16 153/62 100 Nasal Cannula 2 07/08/17 14:30 77 16 168/99 100 Nasal Cannula 2 07/08/17 14:20 81 16 148/85 100 Oxymask 10 07/08/17 14:10 79 16 161/75 100 Oxymask 10 07/08/17 14:00 36.3 87 16 153/76 100 Oxymask 10 07/08/17 12:04 36.8 86 18 132/65 (87) 98 Nasal Cannula 3.0 07/08/17 08:00 98 Nasal Cannula 3.0 Physical Exam: General- Not in acute distress Head- atraumatic Eyes- PERRL, EOMI ENT- oropharynx clear Neck- supple, no JVD Lungs- clear to auscultation Heart- regular rhythm; no murmur Abdomen- normal bowel sounds, soft Extremities- No pretibial edema Neuro- alert, oriented x 3, PERRL, EOMI Skin- warm & dry Laboratory Results: Last 24 Hours Test 07/08/17 06:56 White Blood Count 12.07 K/uL Red Blood Count 3.07 M/uL Hemoglobin 9.5 g/dL Hematocrit 28.5 % Mean Corpuscular Volume 92.8 fL Mean Corpuscular Hemoglobin 30.9 pg Mean Corpuscular Hemoglobin Concent 33.3 g/dl Platelet Count 220 K/uL Mean Platelet Volume 9.2 fL Neutrophils (%) (Auto) 87.1 % Lymphocytes (%) (Auto) 4.2 % Monocytes (%) (Auto) 8.2 % Eosinophils (%) (Auto) 0.0 % Basophils (%) (Auto) 0.2 % Neutrophils # (Auto) 10.51 K/uL Lymphocytes # (Auto) 0.51 K/uL Monocytes # (Auto) 0.99 K/uL Eosinophils # (Auto) 0.00 K/uL Basophils # (Auto) 0.02 K/uL RDW Standard Deviation 47.5 fL RDW Coefficient of Variation 14.0 % Immature Granulocyte % (Auto) 0.3 % Immature Granulocyte # (Auto) 0.04 K/uL Sodium Level 143 mmol/L Potassium Level 4.6 mmol/L Chloride Level 116 mmol/L Carbon Dioxide Level 18 mmol/L Anion Gap 9.0 mmol/L Blood Urea Nitrogen 33 mg/dl Creatinine 2.70 mg/dl Est Creatinine Clear Calc Drug Dose 15.0 ml/min Estimated GFR () 23.5 Estimated GFR (Non- 20.3 BUN/Creatinine Ratio 12.1 Random Glucose 109 mg/dl Calcium Level 7.8 mg/dl Assessment & Plan LEFT FEMUR FRACTURE/ LEFT PUBIC BONE FRACTURE Cardiac clearance by cardiology Dr. Rosenberg Hx CAD with recent aborted PR in 12/2016, CKD IV High risks for surgery S/P day # 0 Open Reduction Internal Fixation Left Hip Femoral Neck Fracture by Dr. 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 at [facility] Was supposed to be on dual antiplatelet for at least 6 months Only on Plavix, maybe he was unable to tolerated dual antiplatet and aspirin was d/c Continue beta [place] Plavix will be on hold for the surgery Will start on aspirin CKD IV Creatinine is at baseline Monitor renal function Avoid nephrotoxins HYPERTENSION BP 90s->110s in ER Decrease IVF Continue Toprol 12.5 mg REMOTE HX PAROXYSMAL ATRIAL FIBRILLATION rate control On NSR Not on Coumadin since December 2016 continue beta virgin[place] PARKINSON'S DISEASE Continue Sinemet DEPRESSION Continue paroxetine GERD Continue PPI DVT PROPHYLAXIS SCDs/ heparin subq will resume once bleeding stable CODE STATUS DNR DISPOSITION Follows with Dr. Cheung for primary care Resides at [facility] Consultants: Cardio Ortho Current Inpatient Medications: Current Inpatient Medications Medications (Trade) Dose Ordered Sig/Jennifer Route Start Time Stop Time Status Last Admin Dose Admin Sodium Chloride 1,000 ml @ 100 mls/hr Q10H IV 07/07/17 12:23 08/06/17 12:22 07/08/17 07:30 100 MLS/HR Hydromorphone HCl (Dilaudid Inj) 0.25 mg Q20M PRN IV 07/07/17 12:30 07/21/17 12:29 Hydromorphone HCl (Dilaudid Inj) 0.5 mg Q20M PRN IV 07/07/17 12:30 07/21/17 12:29 07/08/17 01:41 0.5 MG Naloxone HCl (Narcan Inj) 0.1 mg PRN PRN IV 07/07/17 12:30 08/06/17 12:29 Senna/Docusate Sodium (Senokot S Tab) 2 tab HS PO 07/07/17 21:00 08/06/17 20:59 07/07/17 22:08 2 TAB Magnesium Hydroxide (Milk Of Magnesia Susp) 30 ml DAILY PRN PO 07/07/17 12:30 08/06/17 12:29 Bisacodyl (Dulcolax Supp) 10 mg DAILY PRN [place] 07/07/17 12:30 08/06/17 12:29 Carbamide Peroxide (Earwax Removal Soln) Instill 5-10 drops into e... DAILY PRN OT 07/07/17 13:15 07/11/17 13:14 Carbidopa/Levodopa (Sinemet 25/ 100MG Tab) 1 tab QID@0700,1100,1600,1900 PO 07/07/17 16:00 08/06/17 15:59 07/08/17 10:54 1 TAB Metoprolol Succinate (Toprol Xl Tab) 12.5 mg DAILY PO 07/08/17 09:00 08/07/17 08:59 07/08/17 07:21 12.5 MG Pantoprazole Sodium (Protonix Tab) 40 mg BID PO 07/07/17 21:00 08/06/17 20:59 07/08/17 07:20 40 MG Paroxetine HCl (pAXil TAB) 20 mg DAILY PO 07/08/17 09:00 08/07/17 08:59 07/08/17 07:22 20 MG Cholecalciferol (Vitamin D Tab) 2,000 inter.unit QAM PO 07/08/17 09:00 08/07/17 08:59 07/08/17 07:22 2,000 INTER.UNIT Aspirin (Ecotrin Tab) 81 mg QAM PO 07/08/17 09:00 08/07/17 08:59 07/08/17 07:20 81 MG Heparin Sodium (Porcine) (Heparin Sq 5000 Unit/0.5ml) 5,000 unit Q12 SQ 07/07/17 21:00 08/06/17 20:59 Future Hold 07/07/17 22:14 5,000 UNIT Fentanyl Citrate (Fentanyl Inj) 50 mcg Q5M PRN IV 07/08/17 12:15 07/08/17 17:15 07/08/17 14:31 50 MCG Hydromorphone HCl (Dilaudid Inj) 0.5 mg Q5M PRN IV 07/08/17 12:15 07/08/17 17:15 Meperidine HCl (Demerol Inj) 25 mg Q5M PRN IV 07/08/17 12:15 07/08/17 17:15 Ondansetron HCl (Zofran Inj) 4 mg ONE PRN IV 07/08/17 12:15 07/08/17 17:15 Labetalol HCl (Normodyne IV) 5 mg Q5M PRN IV 07/08/17 12:15 07/08/17 17:15 Ephedrine Sulfate (EpHEDrine SULFATE INJ) 5 mg Q5M PRN IV 07/08/17 12:15 07/08/17 17:15 Atropine Sulfate (Atropine Sulfate 0.1MG/Ml Inj) 0.5 mg Q1M PRN IV 07/08/17 12:15 07/08/17 17:15 Cefazolin Sodium 1000 mg/Dextrose 55 ml @ 100 mls/hr Q8H IV 07/08/17 22:00 07/09/17 06:32
[2017-07-08] MEDS ORDERED: NURSING VERBAL MED ORDER ONE ×2 (20:15)
[2017-07-08] MEDS ORDERED: BOOST VANILLA PO ONE ×2 (21:00)
[2017-07-08] MEDS: DOCUSATE SODIUM/SENNA 50/8.6MG TAB PO SCH (21:50)
[2017-07-08] MEDS: CEFAZOLIN IV 1,000 MG in DEXTROSE 5% 50ML 50 ML IV SCH (21:51)
[2017-07-09] VITALS (8 sets, daily range): BP systolic 102–145; BP diastolic 52–73; PULSE 69–90; TEMP 36.4–36.9; O2SAT 91–100
[2017-07-09] MEDS: HYDROmorphone INJ 0.5 MG/0.5 ML SYR IV PRN ×3 (03:10→21:36)
[2017-07-09] MEDS: CARBIDOPA/LEVODOPA 25/100MG TAB PO SCH ×4 (06:10→18:49)
[2017-07-09] MEDS: CEFAZOLIN IV 1,000 MG in DEXTROSE 5% 50ML 50 ML IV SCH (06:10)
[2017-07-09 06:24] LABS: HEMATOCRIT 25.9 % (42-52); MEAN CELL VOLUME 94.5 fL (80-100); MEAN CORPUSCULAR HEMOGLOBIN 31.4 pg (25-34); MEAN CORPUSCULAR HGB CONC 33.2 g/dl (32-36); MEAN PLATELET VOLUME 9.6 fL (7.4-10.4); PLATELET COUNT 197 K/uL (130-400); RED BLOOD COUNT 2.74 M/uL (4.7-6.1); WHITE BLOOD COUNT 10.35 K/uL (4.8-10.8)
[2017-07-09 06:52] LABS: BUN/CREATININE RATIO 12.4 (10-20); CALCIUM 7.9 mg/dl (8.5-10.1); CREATININE 2.6 mg/dl (0.60-1.40); POTASSIUM 4.3 mmol/L (3.5-5.1)
--- NOTE | 2017-07-09 07:05 | Orthopedic Progress Note ---
Orthopedic Progress Note Date of Service Jul 09, 2017. Subjective Post OP Day: 1 (s/p ORIF left hip fracture) Reports: feeling well, pain controlled w PO medications, Denies: complaints, chest pain, SOB, nausea / vomiting, light headedness, calf pain Objective calves soft nontender, N/V intact, dressing C/D/I, A&O x3, toes mobile Date Time Temp Pulse Resp B/P (MAP) Pulse Ox O2 Delivery O2 Flow Rate FiO2 07/09/17 03:18 36.8 80 16 118/69 (85) 93 2.0 07/08/17 23:32 92 Nasal Cannula 2.0 07/08/17 23:32 36.8 81 16 99/63 (75) 88 Room Air 07/08/17 23:05 Nasal Cannula 2.0 07/08/17 19:33 36.9 76 18 119/53 (75) 99 Nasal Cannula 2.0 07/08/17 18:23 36.6 84 16 127/61 (83) 97 07/08/17 17:15 36.9 84 16 120/73 (89) 97 Nasal Cannula 2.0 07/08/17 16:18 36.6 84 16 129/70 (89) 97 Nasal Cannula 2.0 07/08/17 15:43 36.6 78 18 139/85 (103) 97 Nasal Cannula 2.0 07/08/17 15:30 94 Nasal Cannula 2.0 07/08/17 15:30 94 Nasal Cannula 2.0 07/08/17 15:15 36.6 78 18 154/75 (101) 94 Nasal Cannula 2.0 07/08/17 15:00 37.1 84 16 167/74 100 Nasal Cannula 2 07/08/17 14:50 37.1 84 16 162/76 100 Nasal Cannula 2 07/08/17 14:40 37.1 81 16 153/62 100 Nasal Cannula 2 07/08/17 14:30 77 16 168/99 100 Nasal Cannula 2 07/08/17 14:20 81 16 148/85 100 Oxymask 10 07/08/17 14:10 79 16 161/75 100 Oxymask 10 07/08/17 14:00 36.3 87 16 153/76 100 Oxymask 10 07/08/17 12:04 36.8 86 18 132/65 (87) 98 Nasal Cannula 3.0 07/08/17 08:00 98 Nasal Cannula 3.0 Laboratory Results 24 Hours: Test 07/09/17 05:28 Hematocrit 25.9 % Hemoglobin 8.6 g/dL Assessment & Plan Assessment: POD #1 s/p ORIF left hip fracture -PT/OT, PWB with walker -will need rehab upon discharge prior to returning to [facility] where he resides -pain currently well controlled History of CAD w recent NC 12/2016 -may resume anticoagulation as per medicine CKD IV HYPERTENSION Continue Toprol 12.5 mg REMOTE HX PAROXYSMAL ATRIAL FIBRILLATION PARKINSON'S DISEASE DEPRESSION GERD Discharge Planning Discharge Planning: uncertain
[2017-07-09] MEDS: BOOST VANILLA PO SCH ×6 (08:49→17:39)
[2017-07-09] MEDS: ASPIRIN 81 MG ECTAB PO SCH (08:49)
[2017-07-09] MEDS: PAROXETINE 20 MG TAB PO SCH (08:50)
[2017-07-09] MEDS: PANTOprazole SOD 40 MG TAB PO SCH ×2 (08:50→20:34)
[2017-07-09] MEDS: METOPROLOL SUCC 25MG EXT REL TAB PO SCH (08:55)
[2017-07-09] MEDS: CHOLECALCIFEROL 1000 INTER.UNIT TAB PO SCH (08:56)
--- NOTE | 2017-07-09 13:40 | PROGRESS NOTE ---
DATE: 07/09/2017 FOLLOWUP VISIT SUBJECTIVE: This is an 86-year-old with a history of Crohn's and Parkinson's disease, who has a remote history of atrial fibrillation and a possible aborted inferior wall myocardial infarction earlier this year. He fell and sustained a hip fracture. He successfully went through surgery and now is convalescing on a regular nursing floor. He is sitting in a chair and has no complaints today. OBJECTIVE: VITAL SIGNS: Blood pressure is 110/60. Pulse is regular at 70. He is afebrile. HEENT: He is normocephalic. Pupils are equal and reactive to light. Extraocular muscles are intact bilaterally. NECK: The neck veins are flat. Carotids have good upstrokes bilaterally without bruits. Thyroid is nonpalpable. RESPIRATORY: Breath sounds equal bilaterally and clear to auscultation. CARDIOVASCULAR: Heart has a regular rhythm. Normal S1 and S2. No cardiac rubs or murmurs. GASTROINTESTINAL: Abdomen is soft and nontender without organomegaly. EXTREMITIES: Free of edema, digit clubbing, or cyanosis. NEUROLOGIC: Grossly intact. SKIN: Warm to touch. LYMPH NODES: Negative to palpation. IMPRESSION: 1. Status post operative repair of a hip fracture. 2. Parkinson's disease with balance issues. 3. Crohn's disease. 4. Possible aborted inferior wall myocardial infarction in December. 5. 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 6. Low hemoglobin probably due to chronic kidney disease. RECOMMENDATIONS: The patient clinically is doing well. At this point, a cardiology will sign off the case. Please reconsult us if necessary.
[2017-07-09] MEDS: SODIUM CHLORIDE 0.9% 1000ML 1,000 ML IV SCH (17:41)
--- NOTE | 2017-07-09 18:01 | Progress Note ---
Medicine Progress Note Date & Time of Visit: Jul 09, 2017 at 13:49. Subjective Pt was seen and examined Sitting in chair with no distress eating lunch with daughter present Pt said that he does not have any pain currently He said that he stood today with physical therapy Denies any chest pain, palpitation, dizziness and SOB Objective Last 8 Hrs Date Time Temp Pulse Resp B/P (MAP) Pulse Ox O2 Delivery O2 Flow Rate FiO2 07/09/17 14:58 36.4 69 18 106/52 (70) 100 Room Air 07/09/17 12:13 36.9 69 16 102/66 (78) 100 Room Air 07/09/17 10:45 78 95 Physical Exam: General- Not in acute distress Head- atraumatic Eyes- PERRL, EOMI ENT- oropharynx clear Neck- supple, no JVD Lungs- clear to auscultation Heart- regular rhythm; no murmur Abdomen- normal bowel sounds, soft Extremities- No pretibial edema Neuro- alert, oriented, PERRL, EOMI, no numbness Skin- warm & dry Laboratory Results: Last 24 Hours Test 07/09/17 05:28 White Blood Count 10.35 K/uL Red Blood Count 2.74 M/uL Hemoglobin 8.6 g/dL Hematocrit 25.9 % Mean Corpuscular Volume 94.5 fL Mean Corpuscular Hemoglobin 31.4 pg Mean Corpuscular Hemoglobin Concent 33.2 g/dl RDW Standard Deviation 48.7 fL RDW Coefficient of Variation 14.1 % Platelet Count 197 K/uL Mean Platelet Volume 9.6 fL Sodium Level 144 mmol/L Potassium Level 4.3 mmol/L Chloride Level 118 mmol/L Carbon Dioxide Level 18 mmol/L Anion Gap 9.0 mmol/L Blood Urea Nitrogen 32 mg/dl Creatinine 2.60 mg/dl Est Creatinine Clear Calc Drug Dose 15.6 ml/min Estimated GFR () 24.6 Estimated GFR (Non- 21.2 BUN/Creatinine Ratio 12.4 Random Glucose 98 mg/dl Calcium Level 7.9 mg/dl Assessment & Plan LEFT FEMUR FRACTURE/ LEFT PUBIC BONE FRACTURE Cardiac clearance by cardiology Dr. Rosenberg Hx CAD with recent aborted [place] in 12/2016, CKD IV High risks for surgery S/P day # 1 Open Reduction Internal Fixation Left Hip Femoral Neck Fracture by Dr. 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 Daughter said that he was never on asa But Dr. Kelley note back on 01/08 said that to be on dual antiplatelet for at least 6 months Will try to find out why he is not on asa. CKD IV Creatinine is at baseline Creatine 2.6 Monitor renal function Avoid nephrotoxins HYPERTENSION BP 90s->110s in ER Decrease IVF Continue Toprol 12.5 mg REMOTE HX PAROXYSMAL ATRIAL FIBRILLATION Rate control On NSR Not on Coumadin since December 2016 continue beta [place] PARKINSON'S DISEASE Continue Sinemet DEPRESSION Continue paroxetine GERD Continue PPI DVT PROPHYLAXIS SCD/heparin subq resume CODE STATUS DNR DISPOSITION Follows with Dr. Cheung for primary care Resides at [facility] Consultants: Cardio Ortho Procedures: Open Reduction Internal Fixation Left Hip Femoral Neck Fracture by Dr. Dubon Current Inpatient Medications: Current Inpatient Medications Medications (Trade) Dose Ordered Sig/Jennifer Route Start Time Stop Time Status Last Admin Dose Admin Sodium Chloride 1,000 ml @ 50 mls/hr Q20H IV 07/07/17 12:23 08/06/17 12:22 07/09/17 17:41 50 MLS/HR Hydromorphone HCl (Dilaudid Inj) 0.25 mg Q20M PRN IV 07/07/17 12:30 07/21/17 12:29 Hydromorphone HCl (Dilaudid Inj) 0.5 mg Q20M PRN IV 07/07/17 12:30 07/21/17 12:29 07/09/17 08:57 0.5 MG Naloxone HCl (Narcan Inj) 0.1 mg PRN PRN IV 07/07/17 12:30 08/06/17 12:29 Senna/Docusate Sodium (Senokot S Tab) 2 tab HS PO 07/07/17 21:00 08/06/17 20:59 07/08/17 21:50 2 TAB Magnesium Hydroxide (Milk Of Magnesia Susp) 30 ml DAILY PRN PO 07/07/17 12:30 08/06/17 12:29 Bisacodyl (Dulcolax Supp) 10 mg DAILY PRN [place] 07/07/17 12:30 08/06/17 12:29 Carbamide Peroxide (Earwax Removal Soln) Instill 5-10 drops into e... DAILY PRN OT 07/07/17 13:15 07/11/17 13:14 Carbidopa/Levodopa (Sinemet 25/ 100MG Tab) 1 tab QID@0700,1100,1600,1900 PO 07/07/17 16:00 08/06/17 15:59 07/09/17 16:21 1 TAB Metoprolol Succinate (Toprol Xl Tab) 12.5 mg DAILY PO 07/08/17 09:00 08/07/17 08:59 07/08/17 07:21 12.5 MG Pantoprazole Sodium (Protonix Tab) 40 mg BID PO 07/07/17 21:00 08/06/17 20:59 07/09/17 08:50 40 MG Paroxetine HCl (pAXil TAB) 20 mg DAILY PO 07/08/17 09:00 08/07/17 08:59 07/09/17 08:50 20 MG Cholecalciferol (Vitamin D Tab) 2,000 inter.unit QAM PO 07/08/17 09:00 08/07/17 08:59 07/09/17 08:56 2,000 INTER.UNIT Aspirin (Ecotrin Tab) 81 mg QAM PO 07/08/17 09:00 08/07/17 08:59 07/09/17 08:49 81 MG Heparin Sodium (Porcine) (Heparin Sq 5000 Unit/0.5ml) 5,000 unit Q12 SQ 07/07/17 21:00 08/06/17 20:59 Future Hold 07/07/17 22:14 5,000 UNIT Ondansetron HCl (Zofran Inj) 4 mg Q6H PRN IV 07/08/17 19:15 08/07/17 19:14 07/08/17 19:27 4 MG Enteral Nutritional Formula (Boost) 1 can TIDM PO 07/09/17 08:30 08/08/17 08:29 07/09/17 17:39 1 CAN
[2017-07-09] MEDS: DOCUSATE SODIUM/SENNA 50/8.6MG TAB PO SCH (20:34)
[2017-07-09] MEDS: HEPARIN SOD 5000 UNIT/0.5 ML CARP SQ SCH (20:49)
[2017-07-10] MEDS: CARBIDOPA/LEVODOPA 25/100MG TAB PO SCH ×4 (06:13→19:53)
[2017-07-10 06:59] LABS: HEMATOCRIT 30.5 % (42-52); MEAN CELL VOLUME 94.4 fL (80-100); MEAN CORPUSCULAR HEMOGLOBIN 31.6 pg (25-34); MEAN CORPUSCULAR HGB CONC 33.4 g/dl (32-36); MEAN PLATELET VOLUME 9.1 fL (7.4-10.4); PLATELET COUNT 180 K/uL (130-400); RED BLOOD COUNT 3.23 M/uL (4.7-6.1); WHITE BLOOD COUNT 7.43 K/uL (4.8-10.8)
[2017-07-10 07:19] VITALS: BP 114/72; PULSE 86; TEMP 36.5; O2SAT 97
[2017-07-10 07:33] LABS: CALCIUM 8.4 mg/dl (8.5-10.1); CREATININE 2.8 mg/dl (0.60-1.40); POTASSIUM 4.3 mmol/L (3.5-5.1)
--- NOTE | 2017-07-10 07:58 | Anesthesiology Progress Note ---
Anesthesia Post Op Note Date & Time Jul 10, 2017 at 07:57 Vital Signs Pain Intensity: 9.0 Vital Signs Past 12 Hours Date Time Temp Pulse Resp B/P (MAP) Pulse Ox O2 Delivery O2 Flow Rate FiO2 07/10/17 07:19 36.5 86 15 114/72 (86) 97 Nasal Cannula 07/09/17 23:35 36.8 90 16 125/72 (89) 92 Room Air 07/09/17 23:15 Room Air Notes Mental Status: alert / awake / arousable, participated in evaluation Pt Amnestic to Procedure: Yes Nausea / Vomiting: adequately controlled Pain: adequately controlled Airway Patency, RR, SpO2: stable & adequate BP & HR: stable & adequate Hydration State: stable & adequate Anesthetic Complications: no major complications apparent
--- NOTE | 2017-07-10 08:29 | Orthopedic Progress Note ---
Orthopedic Progress Note Date of Service Jul 10, 2017. Subjective Post OP Day: 2 Reports: feeling well, Denies: chest pain, SOB, nausea / vomiting, light headedness, calf pain Objective calves soft nontender, N/V intact, incision C/D/I, A&O x3, toes mobile Date Time Temp Pulse Resp B/P (MAP) Pulse Ox O2 Delivery O2 Flow Rate FiO2 07/10/17 07:19 36.5 86 15 114/72 (86) 97 Nasal Cannula 07/10/17 07:10 Room Air 07/09/17 23:35 36.8 90 16 125/72 (89) 92 Room Air 07/09/17 23:15 Room Air 07/09/17 19:44 Room Air 07/09/17 18:52 36.5 80 18 145/73 (97) 91 Room Air 07/09/17 14:58 36.4 69 18 106/52 (70) 100 Room Air 07/09/17 12:13 36.9 69 16 102/66 (78) 100 Room Air 07/09/17 10:45 78 95 07/09/17 09:49 Nasal Cannula 2.0 Laboratory Results 24 Hours: Test 07/10/17 06:46 Hematocrit 30.5 % Hemoglobin 10.2 g/dL Assessment & Plan Assessment: POD #2 s/p ORIF left hip fracture -PT/OT, PWB with walker -will need rehab upon discharge prior to returning to [facility] [place] where he resides -pain currently well controlled History of CAD w recent DC 12/2016 -may resume anticoagulation as per medicine CKD IV HYPERTENSION Continue Toprol 12.5 mg REMOTE HX PAROXYSMAL ATRIAL FIBRILLATION PARKINSON'S DISEASE DEPRESSION GERD Discharge Planning Discharge Planning: uncertain
[2017-07-10] MEDS: BOOST VANILLA PO SCH ×6 (08:54→17:45)
[2017-07-10] MEDS: ASPIRIN 81 MG ECTAB PO SCH (08:54)
[2017-07-10] MEDS: PANTOprazole SOD 40 MG TAB PO SCH ×2 (08:55→22:42)
[2017-07-10] MEDS: PAROXETINE 20 MG TAB PO SCH (08:55)
[2017-07-10 08:58] VITALS: BP 99/62; PULSE 87
[2017-07-10] MEDS: METOPROLOL SUCC 25MG EXT REL TAB PO SCH (08:59)
[2017-07-10] MEDS: CLOPIDOGREL BISULFATE 75 MG TAB PO SCH (09:00)
[2017-07-10] MEDS: CHOLECALCIFEROL 1000 INTER.UNIT TAB PO SCH (09:37)
[2017-07-10] MEDS: HYDROmorphone INJ 0.5 MG/0.5 ML SYR IV PRN (12:29)
[2017-07-10] MEDS: SODIUM CHLORIDE 0.9% 1000ML 1,000 ML IV SCH (13:33)
[2017-07-10 14:52] VITALS: BP 155/84; PULSE 94; TEMP 36.8; O2SAT 95
--- NOTE | 2017-07-10 15:44 | Progress Note ---
Medicine Progress Note Date & Time of Visit: Jul 10, 2017 at 11:35. Subjective Pt was seen and examined Sitting in chair with no distress with Daughter present Pt said that he feels good today He said that he does not have pain now He said that he only has pain when he is trying to stand up Denies any chest pain, palpitation, dizziness and SOB Objective Last 8 Hrs Date Time Temp Pulse Resp B/P (MAP) Pulse Ox O2 Delivery O2 Flow Rate FiO2 07/10/17 14:52 36.8 94 18 155/84 (107) 95 Room Air 07/10/17 08:58 87 99/62 (74) Physical Exam: General- Not in acute distress Head- atraumatic Eyes- PERRL, EOMI ENT- oropharynx clear Neck- supple, no JVD Lungs- clear to auscultation Heart- regular rhythm; no murmur Abdomen- normal bowel sounds, soft Extremities- No pretibial edema Neuro- alert, oriented, PERRL, EOMI, no numbness Skin- warm & dry Laboratory Results: Last 24 Hours Test 07/10/17 06:46 White Blood Count 7.43 K/uL Red Blood Count 3.23 M/uL Hemoglobin 10.2 g/dL Hematocrit 30.5 % Mean Corpuscular Volume 94.4 fL Mean Corpuscular Hemoglobin 31.6 pg Mean Corpuscular Hemoglobin Concent 33.4 g/dl RDW Standard Deviation 48.6 fL RDW Coefficient of Variation 14.0 % Platelet Count 180 K/uL Mean Platelet Volume 9.1 fL Sodium Level 143 mmol/L Potassium Level 4.3 mmol/L Chloride Level 114 mmol/L Carbon Dioxide Level 21 mmol/L Anion Gap 7.0 mmol/L Blood Urea Nitrogen 31 mg/dl Creatinine 2.80 mg/dl Est Creatinine Clear Calc Drug Dose 14.5 ml/min Estimated GFR () 22.5 Estimated GFR (Non- 19.4 BUN/Creatinine Ratio 11.0 Random Glucose 125 mg/dl Calcium Level 8.4 mg/dl Assessment & Plan LEFT FEMUR FRACTURE/ LEFT PUBIC BONE FRACTURE Cardiac clearance by cardiology Dr. Rosenberg Hx CAD with recent aborted PA in 12/2016, CKD IV High risks for surgery S/P day # 2 Open Reduction Internal Fixation Left Hip Femoral Neck Fracture by Dr. 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 Daughter said that he was never on asa But Dr. Kelley note back on 01/08 said that to be on dual antiplatelet for at least 6 months Continue Asa and plavix stable CKD IV Creatinine is at baseline Creatine 2.8 Monitor renal function Avoid nephrotoxins HYPERTENSION BP 90s->110s in ER Decrease IVF Continue Toprol 12.5 mg REMOTE HX PAROXYSMAL ATRIAL FIBRILLATION Rate control On NSR Not on Coumadin since December 2016 continue beta [place] and Asa PARKINSON'S DISEASE Continue Sinemet DEPRESSION Continue paroxetine GERD Continue PPI DVT PROPHYLAXIS SCD/heparin subq CODE STATUS DNR DISPOSITION Follows with Dr. Cheung for primary care Waiting for placement to discharge to rehab Consultants: Cardio Ortho Procedures: Open Reduction Internal Fixation Left Hip Femoral Neck Fracture by Dr. Dubon Current Inpatient Medications: Current Inpatient Medications Medications (Trade) Dose Ordered Sig/Jennifer Route Start Time Stop Time Status Last Admin Dose Admin Sodium Chloride 1,000 ml @ 50 mls/hr Q20H IV 07/07/17 12:23 08/06/17 12:22 07/10/17 13:33 50 MLS/HR Hydromorphone HCl (Dilaudid Inj) 0.25 mg Q20M PRN IV 07/07/17 12:30 07/21/17 12:29 Hydromorphone HCl (Dilaudid Inj) 0.5 mg Q20M PRN IV 07/07/17 12:30 07/21/17 12:29 07/10/17 12:29 0.5 MG Naloxone HCl (Narcan Inj) 0.1 mg PRN PRN IV 07/07/17 12:30 08/06/17 12:29 Senna/Docusate Sodium (Senokot S Tab) 2 tab HS PO 07/07/17 21:00 08/06/17 20:59 07/09/17 20:34 2 TAB Magnesium Hydroxide (Milk Of Magnesia Susp) 30 ml DAILY PRN PO 07/07/17 12:30 08/06/17 12:29 Bisacodyl (Dulcolax Supp) 10 mg DAILY PRN CA 07/07/17 12:30 08/06/17 12:29 Carbamide Peroxide (Earwax Removal Soln) Instill 5-10 drops into e... DAILY PRN OT 07/07/17 13:15 07/11/17 13:14 Carbidopa/Levodopa (Sinemet 25/ 100MG Tab) 1 tab QID@0700,1100,1600,1900 PO 07/07/17 16:00 08/06/17 15:59 07/10/17 10:51 1 TAB Metoprolol Succinate (Toprol Xl Tab) 12.5 mg DAILY PO 07/08/17 09:00 08/07/17 08:59 07/08/17 07:21 12.5 MG Pantoprazole Sodium (Protonix Tab) 40 mg BID PO 07/07/17 21:00 08/06/17 20:59 07/10/17 08:55 40 MG Paroxetine HCl (pAXil TAB) 20 mg DAILY PO 07/08/17 09:00 08/07/17 08:59 07/10/17 08:55 20 MG Cholecalciferol (Vitamin D Tab) 2,000 inter.unit QAM PO 07/08/17 09:00 08/07/17 08:59 07/10/17 09:37 2,000 INTER.UNIT Aspirin (Ecotrin Tab) 81 mg QAM PO 07/08/17 09:00 08/07/17 08:59 07/10/17 08:54 81 MG Ondansetron HCl (Zofran Inj) 4 mg Q6H PRN IV 07/08/17 19:15 08/07/17 19:14 07/08/17 19:27 4 MG Enteral Nutritional Formula (Boost) 1 can TIDM PO 07/10/17 08:30 08/09/17 08:29 07/10/17 12:35 1 CAN Heparin Sodium (Porcine) (Heparin Sq 5000 Unit/0.5ml) 5,000 unit Q12 SQ 07/09/17 21:00 08/08/17 20:59 Future Hold 07/09/17 20:49 5,000 UNIT Clopidogrel Bisulfate (plAVix TAB) 75 mg QAM PO 07/10/17 09:00 08/09/17 08:59 07/10/17 09:00 75 MG
[2017-07-10] MEDS ORDERED: QUETIAPINE FUMARATE 25 MG TAB PO ONE (20:00)
[2017-07-10] MEDS: HEPARIN SOD 5000 UNIT/0.5 ML CARP SQ SCH (21:00)
[2017-07-10] MEDS: DOCUSATE SODIUM/SENNA 50/8.6MG TAB PO SCH (22:42)
[2017-07-10 22:45] VITALS: BP 158/62; PULSE 79; TEMP 36.6; O2SAT 96
[2017-07-11] MEDS: CARBIDOPA/LEVODOPA 25/100MG TAB PO SCH ×3 (06:09→15:40)
[2017-07-11 06:30] LABS: BUN/CREATININE RATIO 12.2 (10-20); CALCIUM 8.6 mg/dl (8.5-10.1); CREATININE 2.6 mg/dl (0.60-1.40); POTASSIUM 4.5 mmol/L (3.5-5.1)
[2017-07-11 07:44] VITALS: BP 121/68; PULSE 98; TEMP 36.7; O2SAT 94
[2017-07-11] MEDS: BOOST VANILLA PO SCH ×4 (08:53→12:05)
[2017-07-11] MEDS: ASPIRIN 81 MG ECTAB PO SCH (08:53)
[2017-07-11 08:56] VITALS: BP 123/71; PULSE 93
[2017-07-11] MEDS: PANTOprazole SOD 40 MG TAB PO SCH (09:00)
[2017-07-11] MEDS: PAROXETINE 20 MG TAB PO SCH (09:00)
[2017-07-11] MEDS: CLOPIDOGREL BISULFATE 75 MG TAB PO SCH (09:00)
[2017-07-11] MEDS: METOPROLOL SUCC 25MG EXT REL TAB PO SCH (09:00)
[2017-07-11] MEDS: CHOLECALCIFEROL 1000 INTER.UNIT TAB PO SCH (09:00)
[2017-07-11] MEDS: HEPARIN SOD 5000 UNIT/0.5 ML CARP SQ SCH (09:55)
--- NOTE | 2017-07-11 12:13 | Orthopedic Progress Note ---
Orthopedic Progress Note Date of Service Jul 11, 2017. Subjective Post OP Day: 3 Additional Notes: Pt awake, answering questions appropriately. No new complaints. Pain controlled at rest. Objective calves soft nontender, N/V intact, incision C/D/I, toes mobile Date Time Temp Pulse Resp B/P (MAP) Pulse Ox O2 Delivery O2 Flow Rate FiO2 07/11/17 08:56 93 123/71 (88) 07/11/17 08:45 Room Air 07/11/17 07:44 36.7 98 16 121/68 (85) 94 Room Air 07/10/17 23:20 Room Air 07/10/17 22:45 36.6 79 18 158/62 (94) 96 Room Air 07/10/17 20:41 Room Air 07/10/17 14:52 36.8 94 18 155/84 (107) 95 Room Air Assessment & Plan Assessment: POD #3 s/p ORIF left hip fracture -PT/OT, PWB with walker Plan: Plan for [facility] possibly today. Ortho will sign off at this time. Instructions placed in EMR. Please call with any questions. Inhouse Planning Pain Management: Ultram DVT Prophylaxis: ASA, other (Plavix) Discharge Planning Discharge Planning: senior living facility
[2017-07-11] MEDS ORDERED: TRAMADOL HCL 50 MG TAB PO PRN (12:15)
--- NOTE | 2017-07-11 12:17 | Consultant Recommendations ---
Case Management Specialist Recommendations Date of Service Jul 11, 2017. Case Management Specialist Recommendations U DISCHARGE INSTRUCTIONS: HIP FRACTURE SELF CARE INSTRUCTIONS: A. You are to ambulate with a walker or crutches for approximately 6 weeks. B. You are PARTIAL WEIGHT BEARING on your operative lower extremity for at least 6 weeks. C. Wear low heeled shoes with non-slip soles D. Be sure that your floors are free of things that could trip you throw rugs, electrical cords, and small objects. Avoid wet and waxed floors, especially with crutches/walker/cane. E. Try to walk several times a day with rest periods between. F. You may shower 48 hours after surgery and get the incision area wet, but DO NOT soak or submerge incision area in water. (No baths, swimming pools, hot tubs ) G. Change dressing as needed daily. If wound is dry, may leave to open air. H. Do NOT apply soap or any ointment/lotions directly over incision. I. You may use ice as needed to operative site. SPECIAL CARE INSTRUCTIONS: VERY IMPORTANT TO READ AND REVIEW A. You may be at risk for phlebitis or blood clots. a. Wear surgical stockings (SHANNON hose) for 2 weeks after surgery to improve circulation and reduce swelling. b. Take ASPIRIN 81mg daily with Plavix 75mg once daily or as directed. This is your blood thinner. c. If you are on Coumadin- you will have daily/weekly blood work to monitor your levels. This will be done by either your family physician/ park maintainer (if you are on Coumadin chronically) versus your orthopedic surgeon. Expect a phone call the day of or the day after your blood work is drawn to adjust your dose accordingly. B. There are a few signs you need to watch for after you are home. Call [facility] at [phone] if you experience any of the following: a. If you have a temperature of 101 degrees or higher. b. Sudden increase in pain in your hip not relieved by rest or pain medication. c. Any fluid or drainage from the incision; redness of the incision. d. Shortness of breath or chest pain. C. Call your physician if: a. Temperature is greater than 101 degrees (F). b. Pain is not relieved by prescribed pain medications. c. Increase drainage or redness from incision. d. Unanswered questions or concerns. D. Pain Medication: a. You will be prescribed pain medication upon discharge that should last till your first post-operative appointment. b. If you experience nausea and/or skin rash, discontinue this medication and contact our office for an alternative medication. c. Caution- narcotic pain medication can cause constipation. FOLLOW UP VISIT: Please call [facility] at [phone] to schedule a follow up appointment 10-14 days from the date of your surgery date.
--- NOTE | 2017-07-11 13:26 | Progress Note ---
Medicine Progress Note Date & Time of Visit: Jul 11, 2017 at 13:12. Subjective Pt was seen and examined Sitting in bed with no distress with daughter at bedside He is having lunch now Pt was agitated last night because he was delirious He was given Seroquel last night Pt said that he feels fine today He said that his pain is well controlled Denies any chest pain, palpitation, dizziness and sob Objective Last 8 Hrs Date Time Temp Pulse Resp B/P (MAP) Pulse Ox O2 Delivery O2 Flow Rate FiO2 07/11/17 08:56 93 123/71 (88) 07/11/17 08:45 Room Air 07/11/17 07:44 36.7 98 16 121/68 (85) 94 Room Air Physical Exam: General- Not in acute distress Head- atraumatic Eyes- PERRL, EOMI ENT- oropharynx clear Neck- supple, no JVD Lungs- clear to auscultation Heart- regular rhythm; no murmur Abdomen- normal bowel sounds, soft Extremities- No pretibial edema Neuro- alert, oriented, PERRL, EOMI, no numbness Skin- warm & dry Laboratory Results: Last 24 Hours Test 07/11/17 05:29 Sodium Level 144 mmol/L Potassium Level 4.5 mmol/L Chloride Level 113 mmol/L Carbon Dioxide Level 21 mmol/L Anion Gap 9.0 mmol/L Blood Urea Nitrogen 32 mg/dl Creatinine 2.60 mg/dl Est Creatinine Clear Calc Drug Dose 15.6 ml/min Estimated GFR () 24.6 Estimated GFR (Non- 21.2 BUN/Creatinine Ratio 12.2 Random Glucose 85 mg/dl Calcium Level 8.6 mg/dl Assessment & Plan LEFT FEMUR FRACTURE/ LEFT PUBIC BONE FRACTURE Cardiac clearance by cardiology Dr. Rosenberg Hx CAD with recent aborted [place] in 12/2016, CKD IV High risks for surgery S/P day # 3 Open Reduction Internal Fixation Left Hip Femoral Neck Fracture by Dr. 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 Daughter said that he was never on asa But Dr. Kleley note back on 01/08 said that to be on dual antiplatelet for at least 6 months Continue BB, Asa and plavix stable CKD IV Creatinine is at baseline Creatine 2.6 today Monitor renal function Avoid nephrotoxins HYPERTENSION BP 90s->110s in ER D/C IVF Continue Toprol 12.5 mg REMOTE HX PAROXYSMAL ATRIAL FIBRILLATION Rate control On NSR Not on Coumadin since December 2016 continue beta [place] and Asa PARKINSON'S DISEASE Continue Sinemet DELIRIUM Was agitated last night Hx of Parkinson dx No Haldol was given because it would worsening his Parkinson symptoms Seroquel was given (safer to give) Stable DEPRESSION Continue paroxetine GERD Continue PPI DVT PROPHYLAXIS SCD/heparin subq CODE STATUS DNR DISPOSITION Follows with Dr. Cheung for primary care Will discharge today to [facility] Consultants: Cardio Ortho Procedures: Open Reduction Internal Fixation Left Hip Femoral Neck Fracture by Dr. Dubon Current Inpatient Medications: Current Inpatient Medications Medications (Trade) Dose Ordered Sig/Jennifer Route Start Time Stop Time Status Last Admin Dose Admin Naloxone HCl (Narcan Inj) 0.1 mg PRN PRN IV 07/07/17 12:30 08/06/17 12:29 Senna/Docusate Sodium (Senokot S Tab) 2 tab HS PO 07/07/17 21:00 08/06/17 20:59 07/10/17 22:42 2 TAB Magnesium Hydroxide (Milk Of Magnesia Susp) 30 ml DAILY PRN PO 07/07/17 12:30 08/06/17 12:29 Bisacodyl (Dulcolax Supp) 10 mg DAILY PRN DC 07/07/17 12:30 08/06/17 12:29 Carbamide Peroxide (Earwax Removal Soln) Instill 5-10 drops into e... DAILY PRN OT 07/07/17 13:15 07/11/17 13:14 Carbidopa/Levodopa (Sinemet 25/ 100MG Tab) 1 tab QID@0700,1100,1600,1900 PO 07/07/17 16:00 08/06/17 15:59 07/11/17 12:05 1 TAB Metoprolol Succinate (Toprol Xl Tab) 12.5 mg DAILY PO 07/08/17 09:00 08/07/17 08:59 07/08/17 07:21 12.5 MG Pantoprazole Sodium (Protonix Tab) 40 mg BID PO 07/07/17 21:00 08/06/17 20:59 07/10/17 22:42 40 MG Paroxetine HCl (pAXil TAB) 20 mg DAILY PO 07/08/17 09:00 08/07/17 08:59 07/10/17 08:55 20 MG Cholecalciferol (Vitamin D Tab) 2,000 inter.unit QAM PO 07/08/17 09:00 08/07/17 08:59 07/10/17 09:37 2,000 INTER.UNIT Aspirin (Ecotrin Tab) 81 mg QAM PO 07/08/17 09:00 08/07/17 08:59 07/11/17 08:53 81 MG Ondansetron HCl (Zofran Inj) 4 mg Q6H PRN IV 07/08/17 19:15 08/07/17 19:14 07/08/17 19:27 4 MG Enteral Nutritional Formula (Boost) 1 can TIDM PO 07/10/17 08:30 08/09/17 08:29 07/11/17 12:05 1 CAN Heparin Sodium (Porcine) (Heparin Sq 5000 Unit/0.5ml) 5,000 unit Q12 SQ 07/09/17 21:00 08/08/17 20:59 Future hold 07/11/17 09:55 5,000 UNIT Clopidogrel Bisulfate (plAVix TAB) 75 mg QAM PO 07/10/17 09:00 08/09/17 08:59 07/10/17 09:00 75 MG Tramadol HCl (Ultram Tab) 50 mg Q6H PRN PO 07/11/17 12:15 08/10/17 12:14
[2017-07-11] MEDS ORDERED: ULT50X PO (13:29)
[2017-07-11] MEDS ORDERED: ASPEC81 PO (13:29)
--- NOTE | 2017-07-11 13:39 | Discharge Instructions ---
Discharge Instructions Date of Service Jul 11, 2017. Admission Reason for Admission: Hip Fracture Discharge Discharge Diagnosis / Problem: LEFT FEMUR FRACTURE/ LEFT PUBIC BONE FRACTURE, PARKINSON'S DISEASE Discharge Goals Goal(s): Decrease discomfort, Improve function, Improve disease control Activity Recommendations Activity Limitations: resume your previous activity (as tolerated) . Instructions / Follow-Up Instructions / Follow-Up Discharge to [facility] Re[facility] Please schedule follow up appointment with your PCP once discharge from rehab Please call [facility] at [phone] to schedule a follow up appointment 10-14 days from the date of your surgery date. Follow orthopedic recommendations. You are to ambulate with a walker or crutches for approximately 6 weeks. You are PARTIAL WEIGHT BEARING on your operative lower extremity for at least 6 weeks. Continue physical therapy Fall precaution Continue Plavix and Aspirin Current Hospital Diet Patient's current hospital diet: AHA Diet (Heart Healthy) Discharge Diet Recommended Diet: AHA Diet (Heart Healthy) Procedures Procedures Performed: Open Reduction Internal Fixation Left Hip Femoral Neck Fracture Pending Studies Studies pending at discharge: no Medical Emergencies . Who to Call and When: Medical Emergencies: If at any time you feel your situation is an emergency, please call 911 immediately. . Non-Emergent Contact Non-Emergency issues call your: Primary Care Provider Call Non-Emergent contact if: you have a fever, your pain is not controlled, you have any medication questions . . "Provider Documentation" section prepared by Loyda Reyes. . Neuropathologist Recommendations Neuropathologist Recommendations: [facility] [place] INSTRUCTIONS: HIP FRACTURE SELF CARE INSTRUCTIONS: A. You are to ambulate with a walker or crutches for approximately 6 weeks. B. You are PARTIAL WEIGHT BEARING on your operative lower extremity for at least 6 weeks. C. Wear low heeled shoes with non-slip soles D. Be sure that your floors are free of things that could trip you throw rugs, electrical cords, and small objects. Avoid wet and waxed floors, especially with crutches/walker/cane. E. Try to walk several times a day with rest periods between. F. You may shower 48 hours after surgery and get the incision area wet, but DO NOT soak or submerge incision area in water. (No baths, swimming pools, hot tubs ) G. Change dressing as needed daily. If wound is dry, may leave to open air. H. Do NOT apply soap or any ointment/lotions directly over incision. I. You may use ice as needed to operative site. SPECIAL CARE INSTRUCTIONS: VERY IMPORTANT TO READ AND REVIEW A. You may be at risk for phlebitis or blood clots. a. Wear surgical stockings (SHANNON hose) for 2 weeks after surgery to improve circulation and reduce swelling. b. Take ASPIRIN 81mg daily with Plavix 75mg once daily or as directed. This is your blood thinner. c. If you are on Coumadin- you will have daily/weekly blood work to monitor your levels. This will be done by either your family physician/ engineer assistant (if you are on Coumadin chronically) versus your orthopedic surgeon. Expect a phone call the day of or the day after your blood work is drawn to adjust your dose accordingly. B. There are a few signs you need to watch for after you are home. Call [facility] at [phone] if you experience any of the following: a. If you have a temperature of 101 degrees or higher. b. Sudden increase in pain in your hip not relieved by rest or pain medication. c. Any fluid or drainage from the incision; redness of the incision. d. Shortness of breath or chest pain. C. Call your physician if: a. Temperature is greater than 101 degrees (F). b. Pain is not relieved by prescribed pain medications. c. Increase drainage or redness from incision. d. Unanswered questions or concerns. D. Pain Medication: a. You will be prescribed pain medication upon discharge that should last till your first post-operative appointment. b. If you experience nausea and/or skin rash, discontinue this medication and contact our office for an alternative medication. c. Caution- narcotic pain medication can cause constipation. FOLLOW UP VISIT: Please call [facility] at [phone] to schedule a follow up appointment 10-14 days from the date of your surgery date. VTE Core Measure Inpt VTE Proph given/why not?: Unfractionated heparin SQ, SCD's [place] Drug Monitoring Program Search Results: no issues identified
--- NOTE | 2017-07-11 13:52 | Discharge Summary ---
Discharge Summary Date of Service Jul 11, 2017. Discharge Summary Admission Date: Jul 07, 2017 at 11:51 Discharge Date: Jul 11, 2017 Discharge Disposition: snf facility Principal Diagnosis: LEFT FEMUR FRACTURE/ LEFT PUBIC BONE FRACTURE Secondary Diagnoses/Problems: REMOTE HX PAROXYSMAL ATRIAL FIBRILLATION PARKINSON'S DISEASE DEPRESSION CAD CKD 4 HTN Procedures: Open Reduction Internal Fixation Left Hip Femoral Neck Fracture by Dr. Dubon [~ rep ct add3]] CT OF THE CERVICAL SPINE CLINICAL HISTORY: Neck pain status post trauma COMPARISON STUDY: 01/28/2017 CT DOSE: TECHNIQUE: CT scan of the cervical spine was performed from the skull base to the thoracic inlet. Images are reviewed in the axial, sagittal, and coronal planes. IV contrast was not administered for this examination. A dose lowering technique was utilized adhering to the principles of ALARA. FINDINGS: There is no evidence of pneumothorax. There are biapical opacities right greater than left, likely representing areas of apical pleural and parenchymal scarring. The prevertebral soft tissues are normal. No fractures or subluxations are visualized within the cervical spine. There is a minimal superior endplate T3 compression deformity, likely old. There is a small disc bulge/protrusion at the C3-4 level. IMPRESSION: No evidence of acute fracture or traumatic subluxation. Electronically signed by: Caden Schmitt M.D. 07/07/2017 11:00 AM Dictated Date/Time: 07/07/2017 10:[address] HEAD WITHOUT CONTRAST (CT) CLINICAL HISTORY: Head pain. Head trauma. COMPARISON STUDY: 01/30/2017 TECHNIQUE: Axial CT of the brain is performed from the vertex to the skull base. IV contrast was not administered for this examination. A dose lowering technique was utilized adhering to the principles of ALARA. CT DOSE: 1048.91 mGy.cm FINDINGS: No intra or extra-axial mass lesions are visualized. There is no CT evidence of acute cortical infarction. There is no evidence of midline shift. There is no acute hemorrhage. No calvarial fractures are visualized. There are extensive white matter hypodensities likely on a small vessel basis. There is no evidence of pathologic ventricular dilatation. There is no evidence of acute sinusitis IMPRESSION: No acute intracranial findings Electronically signed by: Caden Schmitt M.D. 07/07/2017 10:52 AM Dictated Date/Time: 07/07/2017 10:49 AM PELVIS 1 OR 2 VIEW ROUTINE CLINICAL HISTORY: Left hip pain trauma COMPARISON STUDY: No previous studies for comparison. FINDINGS: Prostate patient therapy seeds are visualized. No blastic lesions are evident. There is an equivocal cortical step-off and slight sclerosis of the left femoral neck. A subtle subcapital fracture cannot be excluded. IMPRESSION: Subtle sclerosis and cortical step-off involving the lateral aspect of the femoral neck. A nondisplaced subcapital hip fracture cannot be excluded. Additional imaging of the left hip is recommended if the patient has pain referrable to this area Electronically signed by: Caden Schmitt M.D. 07/07/2017 11:07 AM Dictated Date/Time: 07/07/2017 11:04 AM [~ rep ct add3]] Left FEMUR 2 VIEWS ROUTINE CLINICAL HISTORY: Pt c/o left femur pain. Fall. COMPARISON STUDY: None. FINDINGS: Slightly impacted nondisplaced left femoral neck fracture. No dislocation. The visual pelvic bones are intact. Multiple brachytherapy seeds within the prostate gland. The distal femur appears intact. IMPRESSION: Slightly impacted nondisplaced left femoral neck fracture. Electronically signed by: Deondre Mackay M.D. 07/07/2017 11:12 AM Dictated Date/Time: 07/07/2017 11:11 AM [~ rep ct add3]] CT OF THE PELVIS AND HIPS WITHOUT CONTRAST CLINICAL HISTORY: Left hip pain following fall. COMPARISON STUDY: CT of the abdomen and pelvis February 15, 2017 pelvis and left femur radiographs performed earlier today. TECHNIQUE: Axial images of the pelvis and hips were obtained without IV contrast. Sagittal and coronal reconstructions were viewed. FINDINGS: Partial ankylosis of the sacroiliac joints is noted. There are brachytherapy seeds within the prostate gland. There is an acute impacted minimally displaced subcapital left femoral neck fracture. There is an acute nondisplaced fracture of the medial left pubic bone. Trabeculated bladder wall is again noted. No additional pelvic fractures are identified. There is no proximal right femoral fracture. IMPRESSION: 1. Acute minimally displaced impacted subcapital left femoral neck fracture. 2. Acute nondisplaced medial left pubic bone fracture. Electronically signed by: Adolfo Simental M.D. 07/07/2017 12:09 PM Dictated Date/Time: 07/07/2017 12:00 PM Consultations: Cardio Ortho Medication Reconciliation New Medications: Aspirin (Aspirin EC Low Dose) 81 Mg Ectab 81 MG PO QAM for 30 Days Tramadol HCl (Tramadol HCl) 50 Mg Tab 50 MG PO Q6H PRN for Pain for 3 Days, #12 TAB Continued Medications: Carbamide Peroxide (Otic) (Ear Wax Drops) 6.5 % Yonas 5-10 DROPS OT DAILY PRN for ear wax Instill 5-10 drops into each ear once daily, plug with cotton for 1 hour, then flush, as needed for ear wax. Carbidopa/Levodopa (Sinemet 25MG/100MG) Tab 1 TAB PO QID, TAB 0700, 1100, 1600, 1900 Cholecalciferol (Vitamin D3) 2,000 Unit Tab 2000 UNITS PO DAILY 1100 Clopidogrel Bisulfate (Plavix) 75 Mg Tab 75 MG PO DAILY@NOON, TAB Cyanocobalamin (Cyanocobalamin) 1,000 Mcg/Ml Inj 1 ML SQ MONTHLY Metoprolol Succinate (Toprol Xl) 25 Mg Tabcr 12.5 MG PO DAILY, TAB 1100 Pantoprazole (Protonix) 40 Mg Tab 40 MG PO BID, TAB 1200, 1700 Paroxetine HCl (Paroxetine) 20 Mg Tab 20 MG PO DAILY 1200 Polyethylene Glycol 3350 (Miralax) 1 Pow Pow 17 GM PO PRN for Constipation Admission Information HPI (per Admitting provider): This is an 86 y/o male with PMH of CAD s/p aborted CO in December 2016, HTN, remote paroxysmal Afib, CKD IV, Parkinson's disease, Chron's disease, and other problems listed below who presents to the ED with left hip pain s/p fall. Patient was feeling at baseline when today he fell while ambulating from restroom to bedroom at [facility] where he resides. Unclear if he was using his walker. Unsure what made him fall. Denies dizziness or LOC. He reports hitting his head and sustaining skin tears to the left arm. Reports posterior neck pain, now in c-spine collar. No headache. Developed left hip pain with the fall, was able to get up with assistance, then was brought to the ER by his [id number]. Received Dilaudid in ER, became nauseous after administered, which resolved with Zofran. States pain is now controlled. Notes he has been having 2-3 loose BM per day which he attributes to unknown med change. Denies COLLINS but he only ambulates short distances. No stair climbing. He denies recent fever, URI, cough, SOB, chest pain, palpitations, abdominal pain, vomiting, GI bleeding, dysuria, increased urinary frequency or urgency. Physical Exam (per Admitting): General Appearance: + thin, + pertinent finding (elderly male, lying in bed , initially nauseous- resolved with zofran, then no distress. daughter in law at bedside.) Head: normocephalic, atraumatic Eyes: normal inspection, PERRL, EOMI, sclerae normal ENT: hearing grossly normal, pharynx normal Neck: + pertinent finding (c-spine collar in place) Respiratory/Chest: lungs clear (anteriorly), normal breath sounds, no respiratory distress, no accessory muscle use Cardiovascular: regular rate, rhythm, no murmur Abdomen/GI: normal bowel sounds, non tender, soft Extremities/Musculoskelatal: no calf tenderness, no pedal edema, + pertinent finding (left hip ROM not examined 2/2 pain.) Neurologic/Psych: alert, normal mood/affect, oriented x 3, + pertinent finding (bilateral ankle flexion/ extension 5/5) Skin: normal color, warm/dry Hospital Course LEFT FEMUR FRACTURE/ LEFT PUBIC BONE FRACTURE Cardiac clearance by cardiology Dr. Rosenberg Hx CAD with recent aborted CO in 12/2016, CKD IV High risks for surgery S/P day # 3 Open Reduction Internal Fixation Left Hip Femoral Neck Fracture by Dr. 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 Daughter said that he was never on asa But Dr. Kelley note back on 01/08 said that to be on dual antiplatelet for at least 6 months Continue BB, Asa and plavix stable CKD IV Creatinine is at baseline Creatine 2.6 today Monitor renal function Avoid nephrotoxins HYPERTENSION BP 90s->110s in ER D/C IVF Continue Toprol 12.5 mg REMOTE HX PAROXYSMAL ATRIAL FIBRILLATION Rate control On NSR Not on Coumadin since December 2016 continue beta [place] and Asa PARKINSON'S DISEASE Continue Sinemet DELIRIUM Was agitated last night Hx of Parkinson dx No Haldol was given because it would worsening his Parkinson symptoms Seroquel was given (safer to give) Stable DEPRESSION Continue paroxetine GERD Continue PPI DVT PROPHYLAXIS SCD/heparin subq CODE STATUS DNR DISPOSITION Follows with Dr. Cheung for primary care Will discharge today to [facility] Total time spent on discharge = 40 minutes This includes examination of the patient, discharge planning, medication reconciliation, and communication with other providers. Discharge Instructions Discharge Instructions Date of Service Jul 11, 2017. Admission Reason for Admission: Hip Fracture Discharge Discharge Diagnosis / Problem: LEFT FEMUR FRACTURE/ LEFT PUBIC BONE FRACTURE, PARKINSON'S DISEASE Discharge Goals Goal(s): Decrease discomfort, Improve function, Improve disease control Activity Recommendations Activity Limitations: resume your previous activity (as tolerated) . Instructions / Follow-Up Instructions / Follow-Up Discharge to [facility] for Rehab Please schedule follow up appointment with your PCP once discharge from rehab Please call [facility] at [phone] to schedule a follow up appointment 10-14 days from the date of your surgery date. Follow orthopedic recommendations. You are to ambulate with a walker or crutches for approximately 6 weeks. You are PARTIAL WEIGHT BEARING on your operative lower extremity for at least 6 weeks. Continue physical therapy Fall precaution Continue Plavix and Aspirin Current Hospital Diet Patient's current hospital diet: AHA Diet (Heart Healthy) Discharge Diet Recommended Diet: AHA Diet (Heart Healthy) Procedures Procedures Performed: Open Reduction Internal Fixation Left Hip Femoral Neck Fracture Pending Studies Studies pending at discharge: no Medical Emergencies . Who to Call and When: Medical Emergencies: If at any time you feel your situation is an emergency, please call 911 immediately. . Non-Emergent Contact Non-Emergency issues call your: Primary Care Provider Call Non-Emergent contact if: you have a fever, your pain is not controlled, you have any medication questions . . "Provider Documentation" section prepared by Loyda Reyes. . Assistance Specialist Recommendations Assistance Specialist Recommendations: [facility] DISCHARGE INSTRUCTIONS: HIP FRACTURE SELF CARE INSTRUCTIONS: A. You are to ambulate with a walker or crutches for approximately 6 weeks. B. You are PARTIAL WEIGHT BEARING on your operative lower extremity for at least 6 weeks. C. Wear low heeled shoes with non-slip soles D. Be sure that your floors are free of things that could trip you throw rugs, electrical cords, and small objects. Avoid wet and waxed floors, especially with crutches/walker/cane. E. Try to walk several times a day with rest periods between. F. You may shower 48 hours after surgery and get the incision area wet, but DO NOT soak or submerge incision area in water. (No baths, swimming pools, hot tubs ) G. Change dressing as needed daily. If wound is dry, may leave to open air. H. Do NOT apply soap or any ointment/lotions directly over incision. I. You may use ice as needed to operative site. SPECIAL CARE INSTRUCTIONS: VERY IMPORTANT TO READ AND REVIEW A. You may be at risk for phlebitis or blood clots. a. Wear surgical stockings (SHANNON hose) for 2 weeks after surgery to improve circulation and reduce swelling. b. Take ASPIRIN 81mg daily with Plavix 75mg once daily or as directed. This is your blood thinner. c. If you are on Coumadin- you will have daily/weekly blood work to monitor your levels. This will be done by either your family physician/ sample book maker (if you are on Coumadin chronically) versus your orthopedic surgeon. Expect a phone call the day of or the day after your blood work is drawn to adjust your dose accordingly. B. There are a few signs you need to watch for after you are home. Call [facility] at [phone] if you experience any of the following: a. If you have a temperature of 101 degrees or higher. b. Sudden increase in pain in your hip not relieved by rest or pain medication. c. Any fluid or drainage from the incision; redness of the incision. d. Shortness of breath or chest pain. C. Call your physician if: a. Temperature is greater than 101 degrees (F). b. Pain is not relieved by prescribed pain medications. c. Increase drainage or redness from incision. d. Unanswered questions or concerns. D. Pain Medication: a. You will be prescribed pain medication upon discharge that should last till your first post-operative appointment. b. If you experience nausea and/or skin rash, discontinue this medication and contact our office for an alternative medication. c. Caution- narcotic pain medication can cause constipation. FOLLOW UP VISIT: Please call [facility] at [phone] to schedule a follow up appointment 10-14 days from the date of your surgery date. VTE Core Measure Inpt VTE Proph given/why not?: Unfractionated heparin SQ, SCD's [place] Drug Monitoring Program Search Results: no issues identified Additional Copies To Drew Cheung D.O. [place] [facility]
[2017-07-11 14:02] VITALS: BP 123/71; PULSE 93; TEMP 36.7; O2SAT 94
[2017-07-11 15:06] VITALS: BP 119/76; PULSE 83; TEMP 36.5; O2SAT 97
== END 2017-07-11 16:44 | DRG 956 ==
LOC: C.EDB 10:03 → C.MSW 11:51 → ENRESERV 12:06
PROVIDERS: ADMIT Internal Medicine; ATTEND Internal Medicine
PROC: 0QS704Z Reposition Left Upper Femur with Internal Fixation Device, Open Approach (ICD-10-PCS; principal; 2017-07-08 09:30)
DX: S72.092A Other fracture of head and neck of left femur, initial encounter for closed fracture (principal); S32.592A Other specified fracture of left pubis, initial encounter for closed fracture; N18.4 Chronic kidney disease, stage 4 (severe); Z68.1 Body mass index [BMI] 19.9 or less, adult; R51 Headache; M54.2 Cervicalgia; R45.1 Restlessness and agitation; G20 Parkinson's disease; I48.0 Paroxysmal atrial fibrillation; I13.10 Hypertensive heart and chronic kidney disease without heart failure, with stage 1 through stage 4 chronic kidney disease, or unspecified chronic kidney disease; I25.10 Atherosclerotic heart disease of native coronary artery without angina pectoris; D63.1 Anemia in chronic kidney disease; I25.2 Old myocardial infarction; F32.9 Major depressive disorder, single episode, unspecified; K21.9 Gastro-esophageal reflux disease without esophagitis; F17.210 Nicotine dependence, cigarettes, uncomplicated; Z51.81 Encounter for therapeutic drug level monitoring; Z79.899 Other long term (current) drug therapy; Z79.02 Long term (current) use of antithrombotics/antiplatelets; Z66 Do not resuscitate; Z91.81 History of falling; Z85.46 Personal history of malignant neoplasm of prostate; Z87.19 Personal history of other diseases of the digestive system; Z87.442 Personal history of urinary calculi; Z82.49 Family history of ischemic heart disease and other diseases of the circulatory system; Z84.1 Family history of disorders of kidney and ureter; W18.30XA Fall on same level, unspecified, initial encounter; Y92.192 Bathroom in other specified residential institution as the place of occurrence of the external cause; Y99.8 Other external cause status

== ENCOUNTER 2017-08-06 23:42 | Emergency (ER) | payer OTHER ==
[~2017-08-06] VITALS: Ht 180.3 cm; Wt 59.1 kg
[~2017-08-06 23:42] MED LIST changes: -CLINDAMYCIN IV 900 MG in DEXTROSE 5% 100ML 100 ML IV SCH; -ONDA4TAB10 SL; +POLY335019 PO; +ULT50X PO; +[UNRECOGNIZED DRUG - CODE] OT
[2017-08-06 23:47] VITALS: TEMP 36.8; Ht 180.3 cm; Wt 59.1 kg
[2017-08-07] MEDS ORDERED: ASPI81TA28 PO (00:12)
[2017-08-07] MEDS ORDERED: TRAM-10 PO (00:16)
--- NOTE | 2017-08-07 00:22 | EMERGENCY ROOM VISIT NOTE ---
History Report prepared by Lelandibe: Ellie Roland Under the Supervision of: Dr. Karla Quinones D.O. First contact with patient: 00:02 Chief Complaint: HEAD INJURY (MINOR) Stated Complaint: HEAD BUMP - FALL HIT HEAD History of Present Illness The patient is a 86 year old male who presents to the Emergency Room with complaints of an episode of a a fall occurring just prior to arrival. The patient woke up to go to the bathroom when he lost his balance, fell, and hit his head on the floor. The patient states he got up to urinate but he has a ureter catheter in. Per family member, the patient's mental status is at baseline. He denies loss of consciousness. The patient has a history of falls and was seen in the ED three weeks ago for a femur fracture from a fall. At baseline, the patient uses a walker to ambulate but he is now supposed to be using a wheelchair to ambulate because of his fracture. He states he was not using his walker or wheelchair when he fell. The patient has a minor headache and denies any neck pain, jaw pain, back pain, or abdominal pain. The patient is on Plavix and Aspirin. Source of History: patient Onset: just prior to arrival Position: other (global) Quality: other (fall) Timing: other (episode) Associated Symptoms: + headache, No LOC, No neck pain, No abdominal pain, No back pain Review of Systems See HPI for pertinent positives & negatives. A total of 10 systems reviewed and were otherwise negative. Past Medical & Surgical Medical Problems: (1) CKD (chronic kidney disease), stage IV (2) Crohns disease (3) Heart disease (4) Hip fracture (5) History of [place] (myocardial infarction) (6) Hypertension (7) Kidney stones (8) Left ureteral calculus (9) Parkinsons disease (10) Paroxysmal atrial fibrillation (11) Prostate cancer (12) Prostate cancer Surgical Problems: (1) S/p removal of kidney stone (2) S/P small bowel resection Family History Cancer Heart disease Hypertension Kidney stones Social History Smoking Status: Never Smoker Alcohol Use: none Drug Use: none Marital Status: Housing Status: lives alone Occupation Status: retired Current/Historical Medications Scheduled Aspirin (Aspirin Ec), 81 MG PO DAILY Carbidopa/Levodopa (Sinemet 25MG/100MG), 1 TAB PO QID Cholecalciferol (Vitamin D3), 2,000 UNITS PO DAILY Clopidogrel Bisulfate (Plavix), 75 MG PO DAILY@NOON Cyanocobalamin (Cyanocobalamin), 1 ML SQ MONTHLY Metoprolol Succinate (Toprol Xl), 12.5 MG PO DAILY Pantoprazole (Protonix), 40 MG PO BID Paroxetine HCl (Paroxetine), 20 MG PO DAILY Scheduled PRN Carbamide Peroxide (Otic) (Ear Wax Drops), 5-10 DROPS OT DAILY PRN for ear wax Polyethylene Glycol 3350 (Miralax), 17 GM PO for Constipation Tramadol (Ultram), 50 MG PO Q6 PRN for Pain Allergies Coded Allergies: Amoxicillin (Verified Allergy, Unknown, ., 08/07/17) Propoxyphene (Verified Allergy, Unknown, DARVON, 08/07/17) Physical Exam Vital Signs Date Time Temp Pulse Resp B/P (MAP) Pulse Ox O2 Delivery O2 Flow Rate FiO2 08/07/17 03:07 65 18 132/68 97 Room Air 08/07/17 01:30 62 22 129/61 100 Room Air 08/06/17 23:47 36.8 83 18 126/72 96 Room Air Physical Exam HEENT: Head - normocephalic with large cephalohematoma over left occiput. Pupils are equal, round, and reactive to light. Extraocular eye muscles are intact and sclera are anicteric. Nose - moist nasal mucosa without evidence of trauma or discharge. Mouth - moist buccal mucosa with no trauma to the teeth or signs of malocclusion. Neck: The neck is supple and there is no pain to palpation over the posterior cervical spine and no obvious step-offs or deformities. There is no JVD or tracheal deviation. Chest: There are no signs of deformities, contusions or abrasions to the chest wall. There is no obvious crepitus or paradoxical chest rise. Heart: Regular, rate, and rhythm. There is a normal S1 and S2 with no murmurs, clicks, or gallops appreciated. Lungs: Clear to auscultation bilaterally with no wheezes, rales, or rhonchi. Abdomen: Soft, completely nontender, nondistended, with good bowel sounds. There is no sign of trauma such as contusions, abrasions or penetrations. There are no palpable pulsatile masses or hepatosplenomegaly. There is no guarding, rigidity, or rebound noted. Pelvis: Stable to rock and compression. Extremities: Skin tear of right michelle and bruising of both arms. There are easily palpable peripheral pulses. Neuro: The patient is awake and alert and easily able to follow commands. Muscle strength is 5 out of 5 in all 4 extremities. Otherwise, neuro exam is unremarkable. Back: The entire thoracic, lumbar, and sacral spine were palpated. There are no obvious step-offs or deformities noted. There are no obvious signs of trauma such as contusions abrasions penetrations noted to the back. Medical Decision & Procedures ER Provider Diagnostic Interpretation: Radiology results as stated below per my review and the radiologist's interpretation: CT HEAD: No evidence of acute infarct, hemorrhage, mass or edema. Chronic small vessel ischemic disease and senescent changes. Minimal mucosal thickening of paranasal sinuses. No acute calvarial abnormality. Radiologist: Abraham Kendall CT C SPINE: Degenerative changes. No acute fracture or traumatic malalignment. Biapical pleural-parenchymal scarring. Radiologist: Abraham Kendall Left Femur X-ray: No obvious new fracture. Left Hip X-Ray: Hardware in place, no obvious new fracture. There does appear to be some new impaction of the left femoral neck. Laboratory Results 08/07/17 00:30 08/07/17 00:30 Test 08/07/17 00:30 08/07/17 02:54 Red Blood Count 2.77 M/uL (4.7-6.1) Mean Corpuscular Volume 93.5 fL (80-100) Mean Corpuscular Hemoglobin 30.3 pg (25-34) Mean Corpuscular Hemoglobin Concent 32.4 g/dl (32-36) RDW Standard Deviation 50.4 fL (36.4-46.3) RDW Coefficient of Variation 14.7 % (11.5-14.5) Mean Platelet Volume 8.5 fL (7.4-10.4) Anion Gap 11.0 mmol/L (3-11) Est Creatinine Clear Calc Drug Dose 16.9 ml/min Estimated GFR () 24.8 Estimated GFR (Non- 21.4 BUN/Creatinine Ratio 11.4 (10-20) Calcium Level 8.0 mg/dl (8.5-10.1) Urine Color YELLOW Urine Appearance CLEAR (CLEAR) Urine pH 5.0 (4.5-7.5) Urine Specific [place] 1.017 (1.000-1.030) Urine Protein NEG (NEG) Urine Glucose (UA) NEG (NEG) Urine Ketones NEG (NEG) Urine Occult Blood 3+ (NEG) Urine Nitrite NEG (NEG) Urine Bilirubin NEG (NEG) Urine Urobilinogen NEG (NEG) Urine Leukocyte Esterase SMALL (NEG) Urine WBC (Auto) 1-5 /hpf (0-5) Urine RBC (Auto) >30 /hpf (0-4) Urine Hyaline Casts (Auto) 0 /lpf (0-5) Urine Epithelial Cells (Auto) 5-10 /lpf (0-5) Urine Bacteria (Auto) NEG (NEG) Laboratory results per my review. ED Course 0008: Past medical records reviewed. The patient was evaluated in room A4B. A complete history and physical exam was performed. Laboratory studies were drawn as above. The patient will go for a CT scan of the brain and cervical spine. 0027: The patient is now complaining of left hip pain and will also have plain films of his left hip and femur. 0241: I discussed the patient's test results with him and his son. He states he feels fine and is in no pain. I did further evaluation of the patient's left hip. He is able to move it without difficulty Or significant pain. 0256: Upon reevaluation, the patient is resting comfortably. I discussed findings and results with the patient and his son. He verbalized agreement of the treatment plan. The patient was discharged home. Medical Decision The patient is a 86 year old male who presents to the Emergency Room with complaints of an episode of a a fall occurring just prior to arrival. Differential diagnosis includes: skull fracture, intracranial hemorrhage, C- spine injury, mechanical fall, syncope. Lab results show: normal white count, hemoglobin 8.4, normal platelet count, BUN 29, creatinine 1.5 which is baseline, glucose 97 This is an 86-year-old male patient who got up from bed and fell to the ground striking the back of his head. On presentation, the patient complained of pain to the occipital region of the head. Prior to going for CT scan of the head and neck, the patient began to complain of some left-sided hip pain. The patient recently underwent hardware placement in that left hip secondary to a subcapital femoral neck fracture. I did obtain x-rays of the left hip and there appeared to be some increased impaction compared to the preoperative x-rays. It was difficult to tell if this was a new finding. I've encouraged close follow-up with the orthopedic surgeon if the pain persists in the left hip. Medication Reconcilliation Current Medication List: was personally reviewed by me Blood Pressure Screening Patient's blood pressure: Normal blood pressure Impression Primary Impression: Closed head injury Additional Impression: Fall Scribe Attestation The scribe's documentation has been prepared under my direction and personally reviewed by me in its entirety. I confirm that the note above accurately reflects all work, treatment, procedures, and medical decision making performed by me. Departure Information Dispostion Home / Self-Care Referrals Drew Cheung D.O. (PCP) Forms HOME CARE DOCUMENTATION FORM, IMPORTANT VISIT INFORMATION Patient Instructions ED Head Injury Closed, My [facility] Additional Instructions The patient should not be walking at all. He will need to have his H/H rechecked again this week. Rest with head elevated. Apply ice to the back of his head to minimize swelling Problem Qualifiers Primary Impression: Closed head injury Encounter type: initial encounter Qualified Codes: S09.90XA - Unspecified injury of head, initial encounter Additional Impression: Fall Encounter type: initial encounter Qualified Codes: W19.XXXA - Unspecified fall, initial encounter
[2017-08-07 00:41] LABS: HEMATOCRIT 25.9 % (42-52); MEAN CELL VOLUME 93.5 fL (80-100); MEAN CORPUSCULAR HEMOGLOBIN 30.3 pg (25-34); MEAN CORPUSCULAR HGB CONC 32.4 g/dl (32-36); MEAN PLATELET VOLUME 8.5 fL (7.4-10.4); PLATELET COUNT 282 K/uL (130-400); RED BLOOD COUNT 2.77 M/uL (4.7-6.1); WHITE BLOOD COUNT 9.78 K/uL (4.8-10.8)
[2017-08-07 01:00] LABS: BUN/CREATININE RATIO 11.4 (10-20); CREATININE 2.58 mg/dl (0.60-1.40); POTASSIUM 4.4 mmol/L (3.5-5.1)
[2017-08-07 03:07] VITALS: BP 132/68; PULSE 65; O2SAT 97
[2017-08-07 03:09] LABS: MANUAL MICROSCOPIC REQUIRED? NO; REVIEW REQ? NO; URINE APPEARANCE CLEAR (CLEAR); URINE BILIRUBIN NEG (NEG); URINE COLOR YELLOW; URINE NITRITE NEG (NEG); URINE SPECIFIC GRAVITY 1.017 (1.000-1.030); UROBILINOGEN NEG (NEG)
--- NOTE | 2017-08-07 06:41 | DIAGNOSTIC IMAGING REPORT ---
CT OF THE CERVICAL SPINE CLINICAL HISTORY: Neck pain status post trauma COMPARISON STUDY: 07/07/2017 CT DOSE: 1022.80 mGy.cm TECHNIQUE: CT scan of the cervical spine was performed from the skull base to the thoracic inlet. Images are reviewed in the axial, sagittal, and coronal planes. IV contrast was not administered for this examination. A dose lowering technique was utilized adhering to the principles of ALARA. FINDINGS: The visualized portions of the lung apices reveal no evidence of pneumothorax. There is biapical pleural-parenchymal scarring. The prevertebral soft tissues are normal. No fractures or subluxations are visualized. There are multilevel degenerative changes IMPRESSION: No evidence of acute fracture or traumatic subluxation. Electronically signed by: Caden Schmitt M.D. 08/07/2017 6:40 AM Dictated Date/Time: 08/07/2017 6:38 AM
--- NOTE | 2017-08-07 07:08 | DIAGNOSTIC IMAGING REPORT ---
HEAD CT NONCONTRAST CT DOSE: HISTORY: Fall. Head injury. eval for trauma TECHNIQUE: Multiaxial CT images of the head were performed without the use of intravenous contrast. Automated exposure control was utilized for this study. A dose lowering technique was utilized adhering to the principles of ALARA. Comparison: Head CT 07/07/2017. Findings: The paranasal sinuses and mastoid air cells are clear. The calvarium and skull base are intact. There is no mass, hematoma, midline shift, acute infarct. White matter hypodensity is nonspecific but suggestive of microvascular ischemic change. The ventricles and sulci demonstrate mild age-related involutional changes. Impression: No acute intracranial abnormality. Electronically signed by: Deondre Mackay M.D. 08/07/2017 7:07 AM Dictated Date/Time: 08/07/2017 7:06 AM
--- NOTE | 2017-08-07 07:16 | DIAGNOSTIC IMAGING REPORT ---
L HIP UNILATERAL 2 VIEWS CLINICAL HISTORY: Left hip pain status post trauma COMPARISON: 07/08/2017, 07/07/2017 DISCUSSION: There is a subcapital left hip fracture which has been fixated with 3 cannulated screws. There is no evidence of hardware fracture. The fracture appears slightly more displaced than on the preoperative study dated 07/07/2017. Prostate radiotherapy seeds are again evident. IMPRESSION: Subcapital left hip fracture which has been fixated with 3 cannulated screws. The fracture appears slightly more displaced than on the preoperative study dated 07/07/2017. No evidence of hardware fracture. Electronically signed by: Caden Schmitt M.D. 08/07/2017 7:14 AM Dictated Date/Time: 08/07/2017 7:12 AM
--- NOTE | 2017-08-07 07:58 | DIAGNOSTIC IMAGING REPORT ---
LEFT FEMUR 4 VIEWS HISTORY: Left leg pain. eval for trauma COMPARISON: Left femur 07/07/2017. FINDINGS: There is a left-sided capital femoral neck fracture which has been transfixed with 3 orthopedic screws. The screw heads are not flush with the bone and demonstrate up to 1.2 cm of displacement. There is progressive femoral neck impaction. The mid to distal left femur is intact. IMPRESSION: Status post internal fixation of a left-sided subcapital femoral neck fracture with 3 orthopedic screws. The screw heads are not flush with the bone and demonstrate up to 1.2 cm of displacement. There is also progressive femoral neck impaction. This could represent an acute or subacute finding. Clinical correlation recommended. Electronically signed by: Deondre Mackay M.D. 08/07/2017 7:56 AM Dictated Date/Time: 08/07/2017 7:53 AM
== END 2017-08-07 03:10 | disposition home or self-care (01) ==
LOC: C.EDB 23:43 → C.EDA 08-07 03:10
DX: S09.90XA Unspecified injury of head, initial encounter (principal); W01.198A Fall on same level from slipping, tripping and stumbling with subsequent striking against other object, initial encounter; I12.9 Hypertensive chronic kidney disease with stage 1 through stage 4 chronic kidney disease, or unspecified chronic kidney disease; N18.4 Chronic kidney disease, stage 4 (severe); K50.90 Crohn's disease, unspecified, without complications; G20 Parkinson's disease; I25.2 Old myocardial infarction; Z91.81 History of falling; Z87.442 Personal history of urinary calculi; Z85.46 Personal history of malignant neoplasm of prostate; Z90.49 Acquired absence of other specified parts of digestive tract; Z98.890 Other specified postprocedural states; Z79.02 Long term (current) use of antithrombotics/antiplatelets; Z79.82 Long term (current) use of aspirin

== ENCOUNTER → 2017-08-08 | Outpatient (CLI) | payer OTHER ==
[~2017-08-08] MED LIST changes: -ASPEC81 PO; +ASPI81TA28 PO; +TRAM-10 PO; -ULT50X PO
[2017-08-08 12:37] LABS: MANUAL MICROSCOPIC REQUIRED? YES; URINE APPEARANCE TURBID (CLEAR); URINE BILIRUBIN NEG (NEG); URINE COLOR RED; URINE NITRITE NEG (NEG); URINE PH 5.5 (4.5-7.5); URINE SPECIFIC GRAVITY 1.025 (1.000-1.030); UROBILINOGEN NEG (NEG)
[2017-08-08 12:39] LABS: REVIEW REQ? NO
[2017-08-08 13:21] LABS: URINE BACTERIA NEG (NEG); URINE RBC >30 /hpf (0-4)
== END | disposition home or self-care (01) ==
LOC: C.LABWYN 12:25
PROVIDERS: ATTEND Internal Medicine
DX: R31.9 Hematuria, unspecified (principal)

== ENCOUNTER → 2017-08-10 | Outpatient (CLI) | payer OTHER ==
[~2017-08-10] MED LIST changes: +ACET-1311 PO; -METO25TA3 PO; +METO25TA4 PO; +SULF800T23 PO
[2017-08-10 09:55] LABS: HEMATOCRIT 25.2 % (42-52); HEMOGLOBIN 8.2 g/dL (14.0-18.0); MEAN CORPUSCULAR HEMOGLOBIN 30.6 pg (25-34); MEAN CORPUSCULAR HGB CONC 32.5 g/dl (32-36); PLATELET COUNT 321 K/uL (130-400); RED CELL DISTRIBUTION WIDTH CV 14.7 % (11.5-14.5); RED CELL DISTRIBUTION WIDTH SD 50.7 fL (36.4-46.3); WHITE BLOOD COUNT 8.05 K/uL (4.8-10.8)
== END | disposition home or self-care (01) ==
LOC: C.LABWYN 09:10
PROVIDERS: ATTEND Emergency Medicine
DX: Z01.89 Encounter for other specified special examinations (principal)

== ENCOUNTER → 2017-08-22 | Outpatient (CLI) | payer OTHER ==
[~2017-08-22] MED LIST changes: -ACET-1311 PO; +METO25TA3 PO; -METO25TA4 PO; -SULF800T23 PO
[2017-08-22 14:01] LABS: ALT/SGPT 11 U/L (12-78); AST/SGOT 12 U/L (15-37); BLOOD UREA NITROGEN 35 mg/dl (7-18); BUN/CREATININE RATIO 13.5 (10-20); CALCIUM 8.2 mg/dl (8.5-10.1); CARBON DIOXIDE 22 mmol/L (21-32); CHLORIDE 110 mmol/L (98-107); GLUCOSE 82 mg/dl (70-99); POTASSIUM 4.8 mmol/L (3.5-5.1); SODIUM 140 mmol/L (136-145)
[2017-08-22 14:04] LABS: ALB/GLOB RATIO 0.9 (0.9-2); ALKALINE PHOSPHATASE 126 U/L (45-117)
== END | disposition home or self-care (01) ==
LOC: C.LABWYN 12:16
PROVIDERS: ATTEND Urology
DX: R31.0 Gross hematuria (principal); R33.9 Retention of urine, unspecified

== ENCOUNTER → 2017-08-29 | Outpatient (CLI) | payer OTHER ==
[~2017-08-29] MED LIST changes: +ACET-1311 PO; +SULF800T23 PO
--- NOTE | 2017-08-29 10:06 | DIAGNOSTIC IMAGING REPORT ---
ABDOMEN AND PELVIS CT WITHOUT CONTRAST CT DOSE: 268.37 mGycm HISTORY: Acute hematuria with history of kidney stones R31.0 Gross hematurianon contrast due to high creatinine of 2.60 TECHNIQUE: Multiaxial CT images of the abdomen and pelvis were performed without contrast. A dose lowering technique was utilized adhering to the principles of ALARA. COMPARISON STUDY: CT pelvis 07/07/2017, CT abdomen and pelvis 07/24/2016. FINDINGS: Centrilobular emphysematous changes with areas of subsegmental pleural-parenchymal scarring involves the lung bases. There is moderate bronchial wall thickening with areas of mucous plugging of the left lung base with patchy groundglass and consolidative opacities suggesting pneumonitis. No pneumatosis or pneumoperitoneum. Imaged inferior cardiac chambers demonstrate coronary arterial calcifications. Decreased attenuation of the cardiac blood pool suggests anemia. The liver, spleen, pancreas and right adrenal gland are unremarkable. There is moderate thickening of the left adrenal gland suggesting hyperplasia. Cholelithiasis without CT evidence of acute cholecystitis or choledocholithiasis. Carl catheter is noted within the urinary bladder. There is a large amount of air within the bladder is well with air tracking into the left ureter, left renal pelvis and left renal collecting system. There is moderate wall thickening of the bladder with surrounding perivesicular inflammatory stranding. Brachytherapy seeds of the prostate are noted. 3 mm nonobstructing calculus of the interpolar right kidney with 2 mm calculus of the inferior pole right kidney. There is no ureteral calculi or obstructive uropathy. Moderate atherosclerosis of the aorta with mild infrarenal ectasia, 2.5 x 2.3 cm. No bulky adenopathy. There is no bowel obstruction identified. There is moderate stool volume of the rectosigmoid. No definite bowel wall thickening identified. The appendix is not seen and likely surgically absent. There are a few scattered air-fluid levels throughout the large bowel, likely incidental. Mild diastases recti. Small right lower abdominal incisional hernia is noted, diastases 1.6 cm on image 354 series 3. There is moderate atrophy of the proximal thigh, gluteal and paraspinal musculature. Subacute to remote appearing fracture involves the lateral aspect of the left 10th rib is also within the anterolateral right eighth rib. Status post pinning of a subacute appearing subcapital left proximal femur fracture. Subacute appearing comminuted fracture of the left pubic bone, superior and inferior pubic rami with associated mild healing sclerosis. No significant displacement. IMPRESSION: 1. Marked urinary bladder wall thickening with perivesicular inflammatory stranding suspicious for cystitis. Carl catheter is noted with a large amount of air within the urinary bladder and also within the left ureter, left renal pelvis and left renal collecting system. This may be secondary to instrumentation with cystitis and emphysematous pyelitis differential considerations. Correlate with urinalysis. 2. Nonobstructing right renal calculi. No ureteral calculi or obstructive uropathy. 3. Subacute appearing fractures of the lateral left 10th rib, anterolateral right eighth rib, left pubic bone, left superior and inferior pubic rami without associated displacement. 4. Cholelithiasis without CT evidence of acute cholecystitis. 5. Constipation. 6. Subsegmental pneumonitis with bronchitis and mild mucous plugging of the left lower lobe. 7. Additional findings as above Electronically signed by: Dany Dao M.D. 08/29/2017 10:04 AM Dictated Date/Time: 08/29/2017 9:51 AM
== END | disposition home or self-care (01) ==
LOC: EDBD → C.CTS 09:14 → MERGE 09:20
PROVIDERS: ATTEND Urology
DX: R31.0 Gross hematuria (principal); R33.9 Retention of urine, unspecified; N20.0 Calculus of kidney

== ENCOUNTER 2017-09-04 22:24 | Emergency (ER) | payer OTHER ==
[~2017-09-04] VITALS: Ht 180.3 cm; Wt 51.1 kg
[~2017-09-04 22:24] MED LIST changes: -ACET-1311 PO; -SULF800T23 PO
[2017-09-04 22:39] VITALS: TEMP 36.6; Ht 180.3 cm; Wt 51.1 kg
[2017-09-04 23:24] LABS: BASO % 0.3 %; BASO ABS # 0.03 K/uL (0-0.2); COMPLETE YES; EOS % 1.4 %; HEMATOCRIT 28.2 % (42-52); LYMPH % 11.3 %; LYMPH ABS # 1.25 K/uL (1.2-3.4); MEAN CELL VOLUME 92.5 fL (80-100); MEAN CORPUSCULAR HEMOGLOBIN 30.8 pg (25-34); MEAN CORPUSCULAR HGB CONC 33.3 g/dl (32-36); MEAN PLATELET VOLUME 8.8 fL (7.4-10.4); MONO % 11.3 %; NEUT % 74.7 %; PLATELET COUNT 292 K/uL (130-400); RED BLOOD COUNT 3.05 M/uL (4.7-6.1); WHITE BLOOD COUNT 11.11 K/uL (4.8-10.8)
--- NOTE | 2017-09-04 23:27 | EMERGENCY ROOM VISIT NOTE ---
History Report prepared by Dominic: Megan Mccann Under the Supervision of: Dr. Tremaine Betancourt M.D. First contact with patient: 22:39 Chief Complaint: URINARY SYMPTOMS Stated Complaint: PULLED OUT CATHETER Nursing Triage Summary: Patient pulled vaca catheter out while crawling to the BR. History of Present Illness The patient is an 87 year old white male with a past medical history of Parkinson's, CKD, hypertension, [place], prostate cancer who presents to the ED with a cc of an episode where he pulled out his catheter 1 hour ago. The patient accidentally pulled out his catheter. He pulled on it thinking that it was the cord to call a nurse. The balloon was inflated. Negative penile pain, bleeding, abdominal pain. The patient is on Plavix and aspirin. Source of History: patient Onset: 1 hour ago Position: other (global) Quality: other (pulled out catheter) Timing: other (episodic) Associated Symptoms: No abdominal pain Note: Pt denies penile pain, bleeding. Review of Systems See HPI for pertinent positives and negatives. A total of ten systems were reviewed and were otherwise negative. Past Medical & Surgical Medical Problems: (1) CKD (chronic kidney disease), stage IV (2) Crohns disease (3) Heart disease (4) Hip fracture (5) History of [place] (myocardial infarction) (6) Hypertension (7) Kidney stones (8) Left ureteral calculus (9) Parkinsons disease (10) Paroxysmal atrial fibrillation (11) Prostate cancer (12) Prostate cancer Surgical Problems: (1) S/p removal of kidney stone (2) S/P small bowel resection Family History Cancer Heart disease Hypertension Kidney stones Social History Smoking Status: Current Some Day Smoker Alcohol Use: none Drug Use: none Marital Status: Housing Status: lives alone Occupation Status: retired Current/Historical Medications Scheduled Aspirin (Aspirin Ec), 81 MG PO DAILY Carbidopa/Levodopa (Sinemet 25MG/100MG), 1 TAB PO QID Cholecalciferol (Vitamin D3), 2,000 UNITS PO DAILY Clopidogrel Bisulfate (Plavix), 75 MG PO DAILY@NOON Cyanocobalamin (Cyanocobalamin), 1 ML SQ MONTHLY Metoprolol Succinate (Toprol Xl), 12.5 MG PO DAILY Pantoprazole (Protonix), 40 MG PO BID Paroxetine HCl (Paroxetine), 20 MG PO DAILY Scheduled PRN Acetaminophen (Tylenol), 650 MG PO TID PRN for Pain Tramadol (Ultram), 50 MG PO Q6 PRN for Pain Allergies Coded Allergies: Amoxicillin (Verified Allergy, Unknown, ., 09/04/17) Propoxyphene (Verified Allergy, Unknown, DARVON, 09/04/17) Physical Exam Vital Signs Date Time Temp Pulse Resp B/P (MAP) Pulse Ox O2 Delivery O2 Flow Rate FiO2 09/05/17 01:01 71 18 137/73 100 Room Air 09/04/17 22:39 36.6 61 18 153/71 93 Room Air Physical Exam GENERAL: Awake, alert, well-appearing, NAD HENT: Normocephalic, atraumatic. EYES: Normal conjunctiva. Sclera non-icteric. NECK: Supple. No nuchal rigidity. FROM. RESPIRATORY: CTAB, no rhonchi, wheezing, crackles CARDIAC: RRR, no MRG ABDOMEN: Soft, NTND, BS+ : Circumcised. Bilateral testes descended. Blood at the external meatus. MSK: No chest wall TTP, no LE edema NEURO: GCS 15, CN 2-12 intact, moves all 4s on command SKIN: No rash or jaundice noted. Medical Decision & Procedures Laboratory Results 09/04/17 23:10 Red Blood Count 3.05, Mean Corpuscular Volume 92.5, Mean Corpuscular Hemoglobin 30.8, Mean Corpuscular Hemoglobin Concent 33.3, Mean Platelet Volume 8.8, Neutrophils (%) (Auto) 74.7, Lymphocytes (%) (Auto) 11.3, Monocytes (%) (Auto) 11.3, Eosinophils (%) (Auto) 1.4, Basophils (%) (Auto) 0.3, Neutrophils # (Auto ) 8.32, Lymphocytes # (Auto) 1.25, Monocytes # (Auto) 1.25, Eosinophils # (Auto ) 0.15, Basophils # (Auto) 0.03 09/04/17 23:10 Test 09/04/17 23:10 09/04/17 23:40 White Blood Count 11.11 K/uL (4.8-10.8) Red Blood Count 3.05 M/uL (4.7-6.1) Hemoglobin 9.4 g/dL (14.0-18.0) Hematocrit 28.2 % (42-52) Mean Corpuscular Volume 92.5 fL (80-100) Mean Corpuscular Hemoglobin 30.8 pg (25-34) Mean Corpuscular Hemoglobin Concent 33.3 g/dl (32-36) Platelet Count 292 K/uL (130-400) Mean Platelet Volume 8.8 fL (7.4-10.4) Neutrophils (%) (Auto) 74.7 % Lymphocytes (%) (Auto) 11.3 % Monocytes (%) (Auto) 11.3 % Eosinophils (%) (Auto) 1.4 % Basophils (%) (Auto) 0.3 % Neutrophils # (Auto) 8.32 K/uL (1.4-6.5) Lymphocytes # (Auto) 1.25 K/uL (1.2-3.4) Monocytes # (Auto) 1.25 K/uL (0.11-0.59) Eosinophils # (Auto) 0.15 K/uL (0-0.5) Basophils # (Auto) 0.03 K/uL (0-0.2) RDW Standard Deviation 51.0 fL (36.4-46.3) RDW Coefficient of Variation 15.1 % (11.5-14.5) Immature Granulocyte % (Auto) 1.0 % Immature Granulocyte # (Auto) 0.11 K/uL (0.00-0.02) Prothrombin Time 10.5 SECONDS (9.0-12.0) Prothromb Time International Ratio 1.0 (0.9-1.1) Activated Partial Thromboplast Time 26.8 SECONDS (21.0-31.0) Partial Thromboplastin Ratio 1.0 Anion Gap 9.0 mmol/L (3-11) Est Creatinine Clear Calc Drug Dose 13.5 ml/min Estimated GFR () 23.0 Estimated GFR (Non- 19.9 BUN/Creatinine Ratio 13.4 (10-20) Calcium Level 8.1 mg/dl (8.5-10.1) Urine Color YELLOW Urine Appearance CLOUDY (CLEAR) Urine pH 5.0 (4.5-7.5) Urine Specific [place] 1.015 (1.000-1.030) Urine Protein 1+ (NEG) Urine Glucose (UA) NEG (NEG) Urine Ketones NEG (NEG) Urine Occult Blood 3+ (NEG) Urine Nitrite NEG (NEG) Urine Bilirubin NEG (NEG) Urine Urobilinogen NEG (NEG) Urine Leukocyte Esterase MODERATE (NEG) Urine WBC (Auto) 10-30 /hpf (0-5) Urine RBC (Auto) >30 /hpf (0-4) Urine Hyaline Casts (Auto) 0 /lpf (0-5) Urine Epithelial Cells (Auto) >30 /lpf (0-5) Urine Bacteria (Auto) NEG (NEG) Urine Renal Epithelial Cells /lpf (0-5) Urine Pathogenic Casts /lpf (0) Laboratory results reviewed by ca ED Course 2248: The patient was evaluated in room A9B. A complete history and physical exam was performed. 2331: I reevaluated the patient. Vaca was replaced. 2345: I discussed the patient's case with Dr. Olivera, [facility]. He is in agreement with the plan. 0015: I reevaluated the patient. Discussed results and discharge instructions: He verbalized understanding and agreement. The patient is ready for discharge. Medical Decision The patient is an 87 year old white male with a past medical history of Parkinson's, CKD, hypertension, [place], prostate cancer who presents to the ED with a cc of an episode where he pulled out his catheter 1 hour ago. Differential diagnosis: urethral tear, bladder rupture, UTI, kidney stone. Patient was seen and evaluated the bedside. Patient reportedly had tried to use the bathroom on his own at his care facility and when he tried to reach out for the help cord he states that he accidentally grabbed his Vaca catheter which was removed. On exam the patient has no abdominal tenderness to palpation. Patient does not have any nausea or vomiting. Of note patient does take aspirin and Plavix. Patient does have an indwelling Vaca catheter secondary to Parkinson's and urinary retention. Patient does see Dr. Du for follow-up with Sh[facility] Urrutia. Patient does not have any penile or testicular pain. Patient does have noted blood at the urethral meatus. I did talk to radiology and they do not perform retrograde cystograms or urethrogram's at this time of days they are typically scheduled. Blood work was obtained along with a urinalysis and I did talk to the nurse to attempt to place a small Vaca catheter but if there was resistance to not continue to try to place it. Urology was paged. Patient does have some chronic anemia which is unchanged from priors. Patient does have chronic CK D stage IV which is fairly unchanged from prior. Patient's urinalysis does show that he has some blood and questionable signs for urinary tract infection. Given the fact that the patient does not complain of any symptoms, has many epithelial cells, and no urine bacteria he was not treated empirically. A urine culture was sent. I did speak with urology, who stated that we can continue the current plan and he could keep his current follow-up appointment. I did discuss the patient with case management in order to obtain a possibly earlier appointment at the behest of the son who was at the bedside. Patient was deemed suitable for outpatient follow-up and treatment at this time. Patient was given strict follow-up, discharge, and return precautions. All questions were answered. Patient was deemed suitable for outpatient follow-up at this time. Patient agreed with the plan of care and was safely discharged home. Medication Reconcilliation Current Medication List: was personally reviewed by me Blood Pressure Screening Patient's blood pressure: Elevated blood pressure Blood pressure disposition: Referred to PCP Consults Time Called: [id number] Consulting Physician: Dr. Olivera, [facility] Returned Call: [phone] I discussed the patient's case with him. He is in agreement with the plan. Impression Primary Impression: Dislodged Vaca catheter Additional Impressions: CKD (chronic kidney disease) Hematuria Scribe Attestation The scribe's documentation has been prepared under my direction and personally reviewed by me in its entirety. I confirm that the note above accurately reflects all work, treatment, procedures, and medical decision making performed by me. Departure Information Dispostion Home / Self-Care Referrals Drew Cheung D.O. (PCP) Patient Instructions ED Catheter Care Vaca, ED Hematuria, My [facility] Additional Instructions Please return to the emergency department if you have worsening or recurrent symptoms not amenable to at-home treatment. Please call for a follow-up appointment with her primary care physician. Please take your medications as prescribed. If you have other concerns and/or complaints please feel free to also call your primary care physician's office or return the ED for further evaluation, management, and treatment. Take your medications as prescribed. You have been examined and treated today on an emergency basis only. This is not a substitute for, or an effort to provide, complete comprehensive medical care. It is impossible to recognize and treat all injuries or illnesses in a single emergency department visit. It is therefore important that you follow up closely with [facility], your PCP, and/or your specialist(s). Call as soon as possible for an appointment. Thank you for your time and consideration. I look forward to speaking with you again soon. Please don't hesitate to call us if you have any questions. Problem Qualifiers Primary Impression: Dislodged Vaca catheter Encounter type: initial encounter Qualified Codes: T83.021A - Displacement of indwelling urethral catheter, initial encounter Additional Impressions: CKD (chronic kidney disease) Chronic kidney disease stage: stage 4 (severe) Qualified Codes: N18.4 - Chronic kidney disease, stage 4 (severe) Hematuria Hematuria type: unspecified type Qualified Codes: R31.9 - Hematuria, unspecified
[2017-09-04] MEDS ORDERED: ACET-1311 PO (23:36)
[2017-09-04 23:42] LABS: BUN/CREATININE RATIO 13.4 (10-20); CALCIUM 8.1 mg/dl (8.5-10.1); CREATININE 2.73 mg/dl (0.60-1.40); POTASSIUM 4.2 mmol/L (3.5-5.1)
[2017-09-04 23:43] LABS: PROTHROMBIN TIME (PATIENT) 10.5 SECONDS (9.0-12.0)
[2017-09-05 00:04] LABS: URINE APPEARANCE CLOUDY (CLEAR); URINE BILIRUBIN NEG (NEG); URINE COLOR YELLOW; URINE EPITHELIAL CELL AUTO >30 /lpf (0-5); URINE NITRITE NEG (NEG); URINE SPECIFIC GRAVITY 1.015 (1.000-1.030); UROBILINOGEN NEG (NEG); ZZUR CULT IF INDIC CLEAN CATCH YES
[2017-09-05 00:11] LABS: MANUAL MICROSCOPIC REQUIRED? NO; REVIEW REQ? YES
[2017-09-05 01:01] VITALS: BP 137/73; PULSE 71; O2SAT 100
== END 2017-09-05 01:12 | disposition home or self-care (01) ==
LOC: EDBD 22:24 → C.EDA 22:25
DX: T83.091A Other mechanical complication of indwelling urethral catheter, initial encounter (principal); X58.XXXA Exposure to other specified factors, initial encounter; I12.9 Hypertensive chronic kidney disease with stage 1 through stage 4 chronic kidney disease, or unspecified chronic kidney disease; N18.4 Chronic kidney disease, stage 4 (severe); I48.91 Unspecified atrial fibrillation; I51.9 Heart disease, unspecified; I25.2 Old myocardial infarction; K50.90 Crohn's disease, unspecified, without complications; F17.200 Nicotine dependence, unspecified, uncomplicated; Z87.81 Personal history of (healed) traumatic fracture; Z87.442 Personal history of urinary calculi; Z85.46 Personal history of malignant neoplasm of prostate; Z98.890 Other specified postprocedural states; Z90.49 Acquired absence of other specified parts of digestive tract; Z79.82 Long term (current) use of aspirin; Z79.899 Other long term (current) drug therapy; Z88.1 Allergy status to other antibiotic agents; Z88.8 Allergy status to other drugs, medicaments and biological substances; Z80.9 Family history of malignant neoplasm, unspecified; Z82.49 Family history of ischemic heart disease and other diseases of the circulatory system; Z84.1 Family history of disorders of kidney and ureter

== ENCOUNTER 2017-09-10 10:05 | Emergency (ER) | payer OTHER ==
[~2017-09-10] VITALS: Ht 180.3 cm; Wt 56.5 kg
[~2017-09-10 10:05] MED LIST changes: +ACET-1311 PO; -POLY335019 PO; -[UNRECOGNIZED DRUG - CODE] OT
[2017-09-10 10:33] VITALS: TEMP 36.3; Ht 180.3 cm; Wt 56.5 kg
[2017-09-10 10:50] LABS: BASO % 0.3 %; BASO ABS # 0.03 K/uL (0-0.2); COMPLETE YES; EOS % 1.3 %; HEMATOCRIT 28.7 % (42-52); IG% 1.2 %; LYMPH % 14.6 %; LYMPH ABS # 1.45 K/uL (1.2-3.4); MEAN CELL VOLUME 92.9 fL (80-100); MEAN CORPUSCULAR HEMOGLOBIN 30.4 pg (25-34); MEAN CORPUSCULAR HGB CONC 32.8 g/dl (32-36); MONO % 7.9 %; NEUT % 74.7 %; PLATELET COUNT 342 K/uL (130-400); RED BLOOD COUNT 3.09 M/uL (4.7-6.1); WHITE BLOOD COUNT 9.96 K/uL (4.8-10.8)
[2017-09-10 11:07] LABS: ALT/SGPT 8 U/L (12-78); AST/SGOT 15 U/L (15-37); BLOOD UREA NITROGEN 31 mg/dl (7-18); BUN/CREATININE RATIO 11.9 (10-20); CALCIUM 7.9 mg/dl (8.5-10.1); CARBON DIOXIDE 19 mmol/L (21-32); CHLORIDE 110 mmol/L (98-107); CREATININE 2.57 mg/dl (0.60-1.40); GLUCOSE 151 mg/dl (70-99); POTASSIUM 4.1 mmol/L (3.5-5.1); SODIUM 138 mmol/L (136-145)
[2017-09-10 11:10] LABS: ALKALINE PHOSPHATASE 112 U/L (45-117)
--- NOTE | 2017-09-10 11:32 | DIAGNOSTIC IMAGING REPORT ---
CHEST ONE VIEW PORTABLE CLINICAL HISTORY: 87 years-old Male presenting with eval for pna. TECHNIQUE: Portable upright AP view of the chest was obtained. COMPARISON: 07/07/2017. FINDINGS: Cardiomediastinal silhouette normal. Postsurgical changes in the right lung with suture margins noted at both the right apex and right midlung. Minimal reticulation at the apices is unchanged and may represent scarring. No new focal opacity. No pleural effusion or pneumothorax. Osseous structures normal. Upper abdomen normal. IMPRESSION: 1. Post surgical changes of the right lung. No new focal infiltrate to suggest pneumonia. Electronically signed by: Eusebio Sullivan M.D. 09/10/2017 11:31 AM Dictated Date/Time: 09/10/2017 11:29 AM
[2017-09-10 12:39] LABS: MANUAL MICROSCOPIC REQUIRED? YES; URINE APPEARANCE CLOUDY (CLEAR); URINE BILIRUBIN NEG (NEG); URINE COLOR BROWN; URINE NITRITE POS (NEG); UROBILINOGEN NEG (NEG)
[2017-09-10 12:40] LABS: REVIEW REQ? NO
[2017-09-10 12:43] LABS: URINE BACTERIA NEG (NEG); URINE RBC >30 /hpf (0-4)
[2017-09-10] MEDS ORDERED: SULFAMETHOXAZOLE/TRIMETHOPRIM DS 800/160MG TAB PO STA (13:17)
[2017-09-10] MEDS ORDERED: SULF800T23 PO (13:18)
[2017-09-10 13:42] VITALS: BP 123/70; PULSE 64; O2SAT 100
--- NOTE | 2017-09-10 15:17 | EMERGENCY ROOM VISIT NOTE ---
History Report prepared by Dominic: Megan Mccann Under the Supervision of: Dr. Cisco Leo M.D. First contact with patient: 10:21 Stated Complaint: AMS History of Present Illness The patient is an 87 year old male who presents to the Emergency Room with an episode of unresponsiveness around 0930. The patient presents to the ED by EMS. His temperature was found to be 92. He received warm saline in route. The patient resides at [facility]. He has been on bedrest since he broke his hip 2 months ago. The patient was feeling well this morning. At 0930 he was trying to have a bowel movement when he became unresponsive and was staring blankly. The staff noted that he felt cold. The patient does not remember what happened. He states that he feels fine. He denies any chest pain, SOB, abdominal pain, weakness, headache, black or bloody stools, numbness, or weakness. The patient has a catheter in place which is draining bloody urine. He has a history of Parkinson's and atrial fibrillation. He is on a blood thinner. Source of History: patient, nursing staff Onset: 0930 Position: other (global) Quality: other (unresponsive) Timing: other (episodic) Associated Symptoms: No headache, No chest pain, No SOB, No abdominal pain, No melena, No hematochezia, No weakness Note: Pt had temperature of 92. Review of Systems See HPI for pertinent positives & negatives. A total of 10 systems reviewed and were otherwise negative. Past Medical & Surgical Medical Problems: (1) CKD (chronic kidney disease), stage IV (2) Crohns disease (3) Heart disease (4) Hip fracture (5) History of [place] (myocardial infarction) (6) Hypertension (7) Kidney stones (8) Left ureteral calculus (9) Parkinsons disease (10) Paroxysmal atrial fibrillation (11) Prostate cancer (12) Prostate cancer Surgical Problems: (1) S/p removal of kidney stone (2) S/P small bowel resection Family History Cancer Heart disease Hypertension Kidney stones Social History Smoking Status: Current Some Day Smoker Alcohol Use: none Drug Use: none Marital Status: Housing Status: lives alone Occupation Status: retired Current/Historical Medications Scheduled Aspirin (Aspirin Ec), 81 MG PO DAILY Carbidopa/Levodopa (Sinemet 25MG/100MG), 1 TAB PO QID Cholecalciferol (Vitamin D3), 2,000 UNITS PO DAILY Clopidogrel Bisulfate (Plavix), 75 MG PO DAILY@NOON Cyanocobalamin (Cyanocobalamin), 1 ML SQ MONTHLY Metoprolol Succinate (Toprol Xl), 12.5 MG PO DAILY Pantoprazole (Protonix), 40 MG PO BID Paroxetine HCl (Paroxetine), 20 MG PO DAILY Sulfa/Trimethoprim (Bactrim Ds 800MG/160MG), 1 TAB PO BID Scheduled PRN Acetaminophen (Tylenol), 650 MG PO TID PRN for Pain Tramadol (Ultram), 50 MG PO Q6 PRN for Pain Allergies Coded Allergies: Amoxicillin (Verified Allergy, Unknown, ., 09/10/17) Propoxyphene (Verified Allergy, Unknown, DARVON, 09/10/17) Physical Exam Vital Signs Date Time Temp Pulse Resp B/P (MAP) Pulse Ox O2 Delivery O2 Flow Rate FiO2 09/10/17 13:42 64 123/70 100 09/10/17 12:56 65 135/64 99 Room Air 09/10/17 12:28 62 09/10/17 11:35 60 11 99 09/10/17 11:27 110/54 09/10/17 11:26 112/56 09/10/17 11:26 58 112/56 64 110/54 09/10/17 11:05 66 20 100 09/10/17 10:35 62 19 80 09/10/17 10:33 36.3 66 17 138/63 99 Room Air 09/10/17 10:27 138/63 09/10/17 10:27 63 Physical Exam Constitutional: Vital signs reviewed. Eyes: Pupils are equal round reactive to light. Conjunctiva are noninjected. ENT: Pharynx is clear without erythema or exudate. Mucous membranes are moist. Neck supple without meningeal signs. Respiratory: Clear to auscultation bilaterally. Breath sounds are equal bilaterally. Cardiovascular: Regular rate and rhythm. No rubs or gallops. GI: Soft, nondistended and nontender. Bowel sounds are present. : Carl in place with bloody output. Musculoskeletal: No peripheral edema. No lower extremity tenderness. Integumentary: No cyanosis. Neurological: The patient is awake and alert. Cranial nerves II-XII are intact. Motor is 5 out of 5 all extremities. Sensation is intact to light touch all extremities. Normal speech. Psychiatric: Normal affect. Medical Decision & Procedures ER Provider Diagnostic Interpretation: X-ray results as stated below per interpretation by me and the radiologist: CHEST ONE VIEW PORTABLE CLINICAL HISTORY: 87 years-old Male presenting with eval for pna. TECHNIQUE: Portable upright AP view of the chest was obtained. COMPARISON: 07/07/2017. FINDINGS: Cardiomediastinal silhouette normal. Postsurgical changes in the right lung with suture margins noted at both the right apex and right midlung. Minimal reticulation at the apices is unchanged and may represent scarring. No new focal opacity. No pleural effusion or pneumothorax. Osseous structures normal. Upper abdomen normal. IMPRESSION: 1. Post surgical changes of the right lung. No new focal infiltrate to suggest pneumonia. Electronically signed by: Eusebio Sullivan M.D. 09/10/2017 11:31 AM Dictated Date/Time: 09/10/2017 11:29 AM Laboratory Results 09/10/17 10:35 Red Blood Count 3.09, Mean Corpuscular Volume 92.9, Mean Corpuscular Hemoglobin 30.4, Mean Corpuscular Hemoglobin Concent 32.8, Mean Platelet Volume 9.0, Neutrophils (%) (Auto) 74.7, Lymphocytes (%) (Auto) 14.6, Monocytes (%) (Auto) 7.9, Eosinophils (%) (Auto) 1.3, Basophils (%) (Auto) 0.3, Neutrophils # (Auto) 7.44, Lymphocytes # (Auto) 1.45, Monocytes # (Auto) 0.79, Eosinophils # (Auto) 0.13, Basophils # (Auto) 0.03 09/10/17 10:35 Test 09/10/17 10:35 09/10/17 11:08 09/10/17 12:00 White Blood Count 9.96 K/uL (4.8-10.8) Red Blood Count 3.09 M/uL (4.7-6.1) Hemoglobin 9.4 g/dL (14.0-18.0) Hematocrit 28.7 % (42-52) Mean Corpuscular Volume 92.9 fL (80-100) Mean Corpuscular Hemoglobin 30.4 pg (25-34) Mean Corpuscular Hemoglobin Concent 32.8 g/dl (32-36) Platelet Count 342 K/uL (130-400) Mean Platelet Volume 9.0 fL (7.4-10.4) Neutrophils (%) (Auto) 74.7 % Lymphocytes (%) (Auto) 14.6 % Monocytes (%) (Auto) 7.9 % Eosinophils (%) (Auto) 1.3 % Basophils (%) (Auto) 0.3 % Neutrophils # (Auto) 7.44 K/uL (1.4-6.5) Lymphocytes # (Auto) 1.45 K/uL (1.2-3.4) Monocytes # (Auto) 0.79 K/uL (0.11-0.59) Eosinophils # (Auto) 0.13 K/uL (0-0.5) Basophils # (Auto) 0.03 K/uL (0-0.2) RDW Standard Deviation 51.2 fL (36.4-46.3) RDW Coefficient of Variation 15.1 % (11.5-14.5) Immature Granulocyte % (Auto) 1.2 % Immature Granulocyte # (Auto) 0.12 K/uL (0.00-0.02) Prothrombin Time 11.0 SECONDS (9.0-12.0) Prothromb Time International Ratio 1.0 (0.9-1.1) Activated Partial Thromboplast Time 25.3 SECONDS (21.0-31.0) Partial Thromboplastin Ratio 1.0 Anion Gap 9.0 mmol/L (3-11) Est Creatinine Clear Calc Drug Dose 15.9 ml/min Estimated GFR () 24.8 Estimated GFR (Non- 21.4 BUN/Creatinine Ratio 11.9 (10-20) Calcium Level 7.9 mg/dl (8.5-10.1) Total Bilirubin 0.2 mg/dl (0.2-1) Direct Bilirubin < 0.1 mg/dl (0-0.2) Aspartate Amino Transf (AST/SGOT) 15 U/L (15-37) Alanine Aminotransferase (ALT/SGPT) 8 U/L (12-78) Alkaline Phosphatase 112 U/L (45-117) Total Protein 5.7 gm/dl (6.4-8.2) Albumin 2.4 gm/dl (3.4-5.0) Bedside Lactic Acid Venous 1.65 mmol/L (0.90-1.70) Urine Color BROWN Urine Appearance CLOUDY (CLEAR) Urine pH 5.0 (4.5-7.5) Urine Specific [place] 1.020 (1.000-1.030) Urine Protein 1+ (NEG) Urine Glucose (UA) NEG (NEG) Urine Ketones NEG (NEG) Urine Occult Blood 3+ (NEG) Urine Nitrite POS (NEG) Urine Bilirubin NEG (NEG) Urine Urobilinogen NEG (NEG) Urine Leukocyte Esterase NEG (NEG) Urine RBC >30 /hpf (0-4) Urine WBC 10-30 /hpf (0-5) Urine Epithelial Cells 5-10 /lpf (0-5) Urine Bacteria NEG (NEG) Laboratory results as reviewed by me. Medications Administered Medications (Trade) Dose Ordered Sig/Jennifer Route Start Time Stop Time Status Last Admin Dose Admin Trimethoprim/ Sulfamethoxazole (Septra Ds 800/ 160MG Tab) 1 tab NOW STAT PO 09/10/17 13:17 09/10/17 13:18 DC 09/10/17 13:26 1 TAB ECG Indication: altered mental status Rate (beats per minute): 61 Rhythm: other (narrow complex rhythm) Findings: T-wave inversion (Inferior), no ectopy, other (limited due to motion artifact) Comparison ECG Date: 07-Jul-2017 Change: Similar T wave inversions. ED Course 1024: The patient was evaluated in room C6. A complete history and physical exam was performed. 1310: I reevaluated the patient. He currently has no complaints. I spoke with him and his son who is his healthcare proxy. I discussed the test results with them. I recommended admission to the hospital for further workup of the unresponsive episode. His son states that he does not do well in the hospital and gets highly agitated. He does not wish to be admitted and understands there is a small risk there could be some type of life threatening cause for the episode. He verbalized agreement of the treatment plan. He was discharged home. 1317: Trimethoprim/Sulfamethoxazole 1 tab PO. Medical Decision This is an 87-year-old male who presents with an episode of unresponsiveness. Differential diagnoses include syncope, vasovagal reaction, dysrhythmia, metabolic derangement, I did perform a limited focused review of portions of the patient's old chart on the electronic medical record. The patient was here September 04 after pulling out his urinary catheter. He had a hemoglobin of 9.4 at the time with a creatinine of 2.73. He was discharged for follow up with urology. I did evaluate the patient as noted above. I did obtain history from the patient as well as the nurse. Apparently the patient had an unresponsive episode where he was staring out into space for an unknown period of time. He was trying to defecate at the time. Currently he has no complaints. He is neurologically intact. IV access was established. The patient was placed on a continuous monitoring specialist. I did order and personally review the patient's 12- lead EKG and chest x-ray as described above. I did order and review the patient 's blood work as noted in the electronic medical record. His anemia and kidney function are stable. I did order a urinalysis that does show signs of infection. I did reassess the patient. He has no complaints at this time. I did discuss the test results with the patient as well as his son who is his healthcare proxy. I did recommend hospitalization for further evaluation of his episode. After discussion with him, he felt it was best that the patient be discharged back to [facility] as he does not do well in the hospital. He does understand that this does carry some risk to his father. I did respect his wishes and the patient was discharged with a prescription for Bactrim. Medication Reconcilliation Current Medication List: was personally reviewed by me Blood Pressure Screening Patient's blood pressure: Normal blood pressure Blood pressure disposition: Did not require urgent referral Impression Primary Impression: Unresponsive episode Additional Impression: Catheter-associated urinary tract infection Scribe Attestation The scribe's documentation has been prepared under my direct and personally reviewed by me in its entirety. I confirm that the note above accurately reflects all work, treatment, procedures, and medical decision making performed by me. Departure Information Dispostion Home / Self-Care Prescriptions Sulfa/Trimethoprim (Bactrim Ds 800MG/160MG) Tab 1 TAB PO BID, #19 TAB Prov: Cisco Leo M.D. 09/10/17 Referrals Drew Cheung D.O. (PCP) Forms HOME CARE DOCUMENTATION FORM, IMPORTANT VISIT INFORMATION, WORK / SCHOOL INSTRUCTIONS Patient Instructions CAUTI Catheter Associated, ED Fainting Unkn Cause, My [facility] Additional Instructions You have been examined and treated today on an emergency basis only. This is not a substitute for, or an effort to provide, complete comprehensive medical care. It is impossible to recognize and treat all injuries or illnesses in a single emergency department visit. It is therefore important that you follow up closely with your physician. Call as soon as possible for an appointment. Return for worsening symptoms or if you develop fever, vomiting, chest pain, shortness of breath or any other concerning symptoms. Problem Qualifiers Additional Impression: Catheter-associated urinary tract infection Indwelling urinary catheter type: indwelling urethral catheter Encounter type : initial encounter Qualified Codes: T83.511A - Infection and inflammatory reaction due to indwelling urethral catheter, initial encounter; N39.0 - Urinary tract infection, site not specified
== END 2017-09-10 13:43 | disposition home or self-care (01) ==
LOC: EDSEX 10:05 → EDBD 10:05 → C.EDC 10:06
DX: R40.4 Transient alteration of awareness (principal); T83.098A Other mechanical complication of other urinary catheter, initial encounter; X58.XXXA Exposure to other specified factors, initial encounter; I12.9 Hypertensive chronic kidney disease with stage 1 through stage 4 chronic kidney disease, or unspecified chronic kidney disease; N18.4 Chronic kidney disease, stage 4 (severe); I48.91 Unspecified atrial fibrillation; I51.9 Heart disease, unspecified; G20 Parkinson's disease; I25.2 Old myocardial infarction; F17.200 Nicotine dependence, unspecified, uncomplicated; Z87.19 Personal history of other diseases of the digestive system; Z87.81 Personal history of (healed) traumatic fracture; Z85.46 Personal history of malignant neoplasm of prostate; Z87.442 Personal history of urinary calculi; Z90.49 Acquired absence of other specified parts of digestive tract; Z79.82 Long term (current) use of aspirin; Z79.899 Other long term (current) drug therapy; Z88.1 Allergy status to other antibiotic agents; Z88.8 Allergy status to other drugs, medicaments and biological substances; Z80.9 Family history of malignant neoplasm, unspecified; Z82.49 Family history of ischemic heart disease and other diseases of the circulatory system; Z84.1 Family history of disorders of kidney and ureter